=== PATIENT | female | born 1960 | race Hispanic/Latino ===

== ENCOUNTER 2022-02-08 14:05 | Inpatient (IN) ==
[2022-02-08] MEDS ORDERED: KETOROLAC 30 MG/ML VIAL IV ONE (14:54)
[2022-02-08] MEDS ORDERED: morphine 4 MG/ML VIAL IV ONE (14:54)
[2022-02-08] MEDS ORDERED: ONDANSETRON 4 MG/2 ML VIAL IV ONE (14:54)
[2022-02-08 15:55] LABS: Hematocrit 34.1 % (34.1-44.9); Hemoglobin 11.3 g/dL (11.2-15.7); Mean Cell Volume 85.7 fL (80.0-100.0); Mean Corpuscular HGB Conc 33.1 g/dL (31.0-36.0); Mean Platelet Volume 9.4 fL (7.4-10.4); Platelet Count 343 K/mcL (140-440); RBC 3.98 M/mcL (3.59-5.38); Red Cell Distribution Width 14.8 % (11.5-14.5); WBC 7.4 K/mcL (4.5-11.0)
[2022-02-08 16:18] LABS: ALT/SGPT 17 U/L (<40); AST/SGOT 21 U/L (<32); Albumin/Globulin Ratio 1.1 (1.0-2.3); Alkaline Phosphatase 88 U/L (39-117); Bilirubin,Total 0.3 mg/dL (0.1-1.0); Blood Urea Nitrogen 11 mg/dL (8-23); Calcium 8.9 mg/dL (8.6-10.4); Carbon Dioxide 22 mmol/L (22-30); Chloride 101 mmol/L (96-108); Globulin 3.5 gm/dL (2.2-3.7); Glomerular Filtration Rate 53; Glucose 122 mg/dL (70-105)
[2022-02-08 16:26] LABS: Band Neutrophils % 1 % (0-10); Lymphocytes % 4 % (15-49); Monocytes % (Manual) 7 % (1-12); Platelet Estimate NORMAL (Normal); RBC Morphology NORMAL (Normal); Segmented Neutrophils % 88 % (38-78)
--- NOTE | 2022-02-08 16:48 | Cat Scan Report ---
History: Abdominal pain, nausea and vomiting TECHNIQUE: Following injection of intravenous nonionic contrast the patient was scanned during the portal venous phase from above the diaphragm through the symphysis pubis. Sagittal and coronal reformats were created. The radiation exposure was limited using dose reduction technology. FINDINGS: Subtle, ill-defined alveolar opacities are present in both lung bases including the inferior segment of lingula. This could be atelectasis or low level inflammation. No pleural effusion is present. The liver is normal in size. There is a well-circumscribed 1.7 x 2.2 cm cyst in the caudate lobe. High in segment two of the left lobe there is another 4 x 5 mm cyst. No solid mass is seen in the liver. The gallbladder is normal with no stones or thickening of the wall. The bile ducts are nondilated. The spleen is relatively small and homogeneous. The pancreas is normal with no mass or inflammation. The adrenals and kidneys are normal. There is no kidney stone or hydronephrosis. There is an incidental exophytic 6 mm cyst located laterally in the middle third of the right kidney. Urinary bladder is empty. Uterus is anteverted and normal in size. Ovaries are atrophic and no adnexal lesion is seen. The aorta is normal in caliber and there is minimal atherosclerosis. The celiac, superior mesenteric and inferior mesenteric arteries are normal. Stomach is decompressed. The duodenum and proximal jejunum are normal. The distal jejunum and proximal ileum are abnormally dilated and contain a moderate amount of fluid along with air-fluid levels. They measure up to 3.4 centimeters in transverse dimension. No transition point is seen. The wall is not abnormally thickened. The distal half of the ileum is decompressed. The colon is decompressed and noninflamed. The appendix is normal. There are a few noninflamed diverticula in the descending and sigmoid colon. Trace amount of ascites is present deep in the pelvis. There is no abscess or mass. Moderate disc space narrowing is present at L2-3 and L4-5 and L5-S1 with milder narrowing at L3-4. There is no fracture or destructive bone lesion. There is no hernia or abdominal wall lesion. IMPRESSION: Incomplete small bowel obstruction involving distal jejunum and proximal ileum. The source of the obstruction is not apparent. Radha Zamorano was called with the report Interpreted and Authenticated by: Edmund Bowman 02/08/22
[2022-02-08 17:05] LABS: Appearance,Urine HAZY (Clear); Bilirubin,Urine Negative (Negative); Color,Urine YELLOW; Culture Indicated,Urine No; Glucose,Urine (UA) Negative (Negative); Ketones,Urine 5 mg/dL (Negative); Leukocyte Esterase,Urine Negative /uL (Negative); Nitrate,Urine Negative (Negative); Protein,Urine Negative (Negative); Specific Gravity,Urine 1.015 (1.000-1.035); Urine Blood Negative (Negative); Urobilinogen,Urine Negative
--- NOTE | 2022-02-08 17:12 | Emergency Department Note ---
Abdominal Pain HPI General Chief Complaint: Abdominal Pain Stated Complaint: abdominal pain Time Seen by Provider: 02/08/22 14:20 Source: patient Mode of arrival: ambulatory Limitations: no limitations History of Present Illness HPI Narrative: 61-year-old female presents for new onset abdominal pain with nausea and vomiting x5 days. She states that its been intermittent, gradually worsening and was so bad this morning that she had associated nausea and vomiting. Denies hematemesis. Had a normal bowel movement yesterday. Denies melena or hematochezia. Had flatulence this morning. Pain is localized to the umbilical area. Denies fever/chills/sweats. Denies hematuria or dysuria. She does drink alcohol, approximately 2 shots per day. No history of pancreatitis. Previous abdominal surgeries include a section. Last colonoscopy was in 2018 and showed diverticulosis and hemorrhoids, otherwise normal. Related Data Previous Rx's Medication Instructions Recorded meloxicam 7.5 mg tablet (Mobic) 7.5 mg PO BID #60 tab 08/24/20 potassium chloride 20 mEq See Rx Instructions .ROUTE 10/14/21 tablet,extended release .COMPLEX #180 tab losartan 50 mg tablet See Rx Instructions .ROUTE 10/15/21 .COMPLEX #90 tab levothyroxine 50 mcg tablet See Rx Instructions .ROUTE 12/27/21 .COMPLEX #90 tab mometasone 0.1 % topical cream 1 applic TOPICAL .COMPLEX PRN #45 g 01/17/22 prednisone 20 mg tablet 20 mg PO BID 5 Days #10 tab 01/17/22 Allergies Allergy/AdvReac Type Severity Reaction Status Date / Time No Known Drug Allergies Allergy Verified 02/05/22 07:28 Review of Systems ROS ROS Narrative: Narrative: All systems ED: reviewed and negative except as stated. 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) Joint pain (Chronic) Hair loss (Chronic) Carpal tunnel syndrome (Chronic) Diverticulosis of colon (without mention of hemorrhage) (Chronic) Hemorrhoids (Chronic) Dermatitis (Chronic) Onychomycosis of toenail (Chronic) Medical History RACHANA positive Anemia Carpal tunnel syndrome Dermatitis Diverticulosis of colon (without mention of hemorrhage) Hair loss Hemorrhoids Hypertrophy of bone of left shoulder Hypopotassemia Joint pain Onychomycosis of toenail Shoulder pain, right Varicose veins of both lower extremities Surgical History History of (~1985) History of colonoscopy (~2017) Family History Other No pertinent family history Social History Smoking Status: Never smoker Exam Narrative Narrative: General: AOx3, NAD, nontoxic appearing. Pleasant and conversant. HEENT: PERRL, EOMI, normocephalic. Moist mucous membranes. Respiratory: Lungs clear to auscultation bilaterally. No respiratory distress. Unlabored breathing. Heart: Regular rate and rhythm, no murmurs/clicks/rubs. Abdomen: Globally tender, more localized to the umbilical area. Mild distention, normal bowel tones. No organomegaly. Extremities: Warm and well perfused. No edema. DP 2+ bilaterally. No venous stasis. Neuro: No focal deficits. Cranial nerves II-XII grossly normal. Skin: Warm dry, no rashes or lesions, no cyanosis. Psych: Normal mood and affect Heme/Lymph: No abnormal bruising General Limitations: no limitations Course Course Course Narrative: 61-year-old female presents for 1 week of intermittent abdominal pain with new o nset nausea and vomiting today Reevaluation(s) Reevaluation #1: Obtain basic labs, CT of the abdomen pelvis with contrast Establish IV give IV fluids, antiemetics and analgesics Reevaluation #2: CT shows partial small bowel obstruction distal jejunum proximal ileum Vital Signs Vital signs: Vital Signs Temperature 97.9 F 02/08/22 14:06 Pulse Rate 94 H 02/08/22 14:06 Respiratory Rate 16 02/08/22 14:06 Blood Pressure 181/111 02/08/22 14:06 Pulse Oximetry (%) 96 02/08/22 14:06 Temperature 97.9 F 02/08/22 14:06 Pulse Rate 69 02/08/22 19:31 Respiratory Rate 16 02/08/22 14:06 Blood Pressure 155/85 02/08/22 19:31 Pulse Oximetry (%) 96 02/08/22 19:31 MDM MDM Narrative Medical decision making narrative: Partial small bowel obstruction I discussed patient with Dr. Coats, general surgery, and he recommends placing an NG tube and IV fluids. I have also ordered a lactic acid. He agrees with admission and monitoring. She has been disposition for admission here at [facility]. Lab Data Result diagrams: 02/08/22 15:07 02/08/22 15:07 Labs: Lab Results 02/08/22 02/08/22 02/08/22 Range/Units 15:07 15:07 15:16 WBC 7.4 (4.5-11.0) K/mcL RBC 3.98 (3.59-5.38) M/mcL Hgb 11.3 (11.2-15.7) g/dL Hct 34.1 (34.1-44.9) % MCV 85.7 (80.0-100.0) fL MCH 28.4 (26.0-34.0) pg MCHC 33.1 (31.0-36.0) g/dL RDW 14.8 H (11.5-14.5) % Plt Count 343 (140-440) K/mcL MPV 9.4 (7.4-10.4) fL Seg Neutrophils % 88 H (38-78) % Band Neutrophils % 1 (0-10) % Lymphocytes % 4 L (15-49) % Monocytes % (Manual) 7 (1-12) % Platelet Estimate Normal (Normal) RBC Morphology Normal (Normal) Sodium 138 (133-145) mmol/L Potassium 3.8 (3.3-5.1) mmol/L Chloride 101 (96-108) mmol/L Carbon Dioxide 22 (22-30) mmol/L Anion Gap 15.0 (8.0-16.0) BUN 11 (8-23) mg/dL Creatinine 1.1 (0.6-1.1) mg/dL POC Creatinine GFR Calculation 53 Glucose 122 H (70-105) mg/dL Calcium 8.9 (8.6-10.4) mg/dL Total Bilirubin 0.3 (0.1-1.0) mg/dL AST 21 (<32) U/L ALT 17 (<40) U/L Alkaline Phosphatase 88 (39-117) U/L Total Protein 7.5 (5.9-8.4) gm/dL Albumin 4.0 (3.2-5.2) gm/dL Globulin 3.5 (2.2-3.7) gm/dL Albumin/Globulin Ratio 1.1 (1.0-2.3) Lipase 30 (7-60) U/L Urine Color Urine Appearance (Clear) Urine pH (5.0-9.0) Ur Specific [place] (1.000-1.035) Urine Protein (Negative) mg/dL Urine Glucose (UA) (Negative) mg/dL Urine Ketones (Negative) mg/dL Urine Occult Blood (Negative) mg/dL Urine Nitrate (Negative) Urine Bilirubin (Negative) mg/dL Urine Urobilinogen mg/dL Ur Leukocyte Esterase (Negative) /uL Ur Culture Indicated? 02/08/22 02/08/22 02/08/22 Range/Units 15:16 15:17 16:15 WBC (4.5-11.0) K/mcL RBC (3.59-5.38) M/mcL Hgb (11.2-15.7) g/dL Hct (34.1-44.9) % MCV (80.0-100.0) fL MCH (26.0-34.0) pg MCHC (31.0-36.0) g/dL RDW (11.5-14.5) % Plt Count (140-440) K/mcL MPV (7.4-10.4) fL Seg Neutrophils % (38-78) % Band Neutrophils % (0-10) % Lymphocytes % (15-49) % Monocytes % (Manual) (1-12) % Platelet Estimate (Normal) RBC Morphology (Normal) Sodium (133-145) mmol/L Potassium (3.3-5.1) mmol/L Chloride (96-108) mmol/L Carbon Dioxide (22-30) mmol/L Anion Gap (8.0-16.0) BUN (8-23) mg/dL Creatinine (0.6-1.1) mg/dL POC Creatinine 1.1 0.7 GFR Calculation Glucose (70-105) mg/dL Calcium (8.6-10.4) mg/dL Total Bilirubin (0.1-1.0) mg/dL AST (<32) U/L ALT (<40) U/L Alkaline Phosphatase (39-117) U/L Total Protein (5.9-8.4) gm/dL Albumin (3.2-5.2) gm/dL Globulin (2.2-3.7) gm/dL Albumin/Globulin Ratio (1.0-2.3) Lipase (7-60) U/L Urine Color Yellow Urine Appearance Hazy A (Clear) Urine pH 6.0 (5.0-9.0) Ur Specific [place] 1.015 (1.000-1.035) Urine Protein Negative (Negative) mg/dL Urine Glucose (UA) Negative (Negative) mg/dL Urine Ketones 5 A (Negative) mg/dL Urine Occult Blood Negative (Negative) mg/dL Urine Nitrate Negative (Negative) Urine Bilirubin Negative (Negative) mg/dL Urine Urobilinogen Negative mg/dL Ur Leukocyte Esterase Negative (Negative) /uL Ur Culture Indicated? No ED POC Tests ED POC Tests: SHYLA - SARS Antigen Negative Discharge Plan Patient/Caregiver Discharge Instructions Pt seen by CLINICAL SERVICES CONSULTANT/PA only: Yes Clinical Impression: SBO (small bowel obstruction) Patient Disposition: Xfer As Inpt ([facility]) Condition: Fair Follow up with: Oskar Beatty ARNP [Primary Care Provider] - Prescriptions: No Action meloxicam [Mobic] 7.5 mg tablet 7.5 mg PO BID Qty: 60 3RF potassium chloride 20 mEq tablet extended release See Rx Instructions .ROUTE .COMPLEX Qty: 180 1RF Dose Instruction: TAKE ONE TABLET BY MOUTH TWICE DAILY Rx Instructions: TAKE ONE TABLET BY MOUTH TWICE DAILY losartan 50 mg tablet See Rx Instructions .ROUTE .COMPLEX Qty: 90 1RF Dose Instruction: TAKE ONE TABLET BY MOUTH ONE TIME DAILY Rx Instructions: TAKE ONE TABLET BY MOUTH ONE TIME DAILY levothyroxine 50 mcg tablet See Rx Instructions .ROUTE .COMPLEX Qty: 90 0RF Dose Instruction: TAKE ONE TABLET BY MOUTH ONE TIME DAILY Rx Instructions: TAKE ONE TABLET BY MOUTH ONE TIME DAILY mometasone 0.1 % cream 1 applic topical .COMPLEX PRN (Reason: rash) Qty: 45 1RF Rx Instructions: 1 applic topical qd x 1-2 weeks PRN; prednisone 20 mg tablet 20 mg PO BID 5 Days Qty: 10 1RF
[2022-02-08] MEDS ORDERED: LORazepam 2 MG/ML VIAL IV ONE (17:30)
[2022-02-08] MEDS ORDERED: 0.9 % SODIUM CHLORIDE 1,000 ML IV ONE (17:31)
--- NOTE | 2022-02-08 18:26 | General Surgery Consult Note ---
HPI Data of Consult Patient: new to practice Consult date: 02/08/22 Primary Care Provider: GILDA Irwin Consult Narrative Chief complaint: Abdominal Pain and Vomiting Reason for consult: Small Bowel Obstruction History of present illness: Mary Ellen is seen in consultation in the ER today after presenting with a roughly 1 week history of intermittent mid abdominal pain that seemed to worsen abruptly last night with worsening pain and bouts of vomiting. She feels better now and has had some bowel function today. Prior abdominal surgery has been 2 C Sections many years ago and no other abdominal operations. She has been in generally good health and denies cardiac issues. She is not on any oral anticoagulants. A CT scan was obtained in the ER that demonstrated findings consistent with possible SBO. cc:: CC: Review of Systems All systems: reviewed and no additional remarkable complaints except as stated Constitutional Additional comments: no recent weight loss, fevers or chills EENT Eyes: Absent blurry vision Additional comments: no visual changes Ears: Absent decreased hearing Additional comments: no changes Breasts Additional comments: denies cancer history Cardiovascular Additional comments: no chest pain or SOB Respiratory Additional comments: no SOB, cough or other issue Gastrointestinal Additional comments: see HPI Genitourinary Additional comments: no hematuria Integumentary Additional comments: no recent skin changes Neurological Additional comments: no changes Psychiatric Additional comments: no changes or issues Hematologic/Lymphatic Additional comments: no known adenopathy PFSH PFSH All Active Problems (Updated 02/08/22 @ 18:35 by Nick Coats MD) SBO (small bowel obstruction) (Acute) Anemia (Acute) Scalp cyst (Acute) RUQ pain (Acute) Lesion of skin of scalp (Acute) GERD (gastroesophageal reflux disease) (Chronic) Hypothyroidism (Chronic) Diabetes mellitus type 2 in nonobese (Chronic) Shoulder pain, right (Chronic) Varicose veins of both lower extremities (Chronic) Hypopotassemia (Chronic) RACHANA positive (Chronic) 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) Joint pain (Chronic) Hair loss (Chronic) Carpal tunnel syndrome (Chronic) Diverticulosis of colon (without mention of hemorrhage) (Chronic) Hemorrhoids (Chronic) Dermatitis (Chronic) Onychomycosis of toenail (Chronic) Medical History RACHANA positive Anemia Carpal tunnel syndrome Dermatitis Diverticulosis of colon (without mention of hemorrhage) Hair loss Hemorrhoids Hypertrophy of bone of left shoulder Hypopotassemia Joint pain Onychomycosis of toenail Shoulder pain, right Varicose veins of both lower extremities Surgical History History of (~1985) History of colonoscopy (~2017) Family History Other No pertinent family history MEDS/ALLERGIES Home Medications and Allergies Home Medications Medication Instructions Recorded Confirmed Type meloxicam 7.5 mg tablet (Mobic) 7.5 mg PO BID #60 tab 08/24/20 01/17/22 Rx potassium chloride 20 mEq See Rx Instructions .ROUTE 10/14/21 01/17/22 Rx tablet,extended release .COMPLEX #180 tab losartan 50 mg tablet See Rx Instructions .ROUTE 10/15/21 01/17/22 Rx .COMPLEX #90 tab levothyroxine 50 mcg tablet See Rx Instructions .ROUTE 12/27/21 01/17/22 Rx .COMPLEX #90 tab mometasone 0.1 % topical cream 1 applic TOPICAL .COMPLEX PRN #45 g 01/17/22 01/17/22 Rx prednisone 20 mg tablet 20 mg PO BID 5 Days #10 tab 01/17/22 01/17/22 Rx Allergies Allergy/AdvReac Type Severity Reaction Status Date / Time No Known Drug Allergies Allergy Verified 02/05/22 07:28 Physical Examination Vital Signs Vital signs: Temp Pulse Resp BP Pulse Ox 97.9 F 73 16 154/87 96 02/08/22 14:06 02/08/22 18:01 02/08/22 14:06 02/08/22 18:01 02/08/22 18:01 General physical appearance General physical exam: well developed, well nourished and no distress Eyes Eye exam: other (normal appearance ) ENT ENT exam: normal pinna and normal nares Head Head exam IM: Present atraumatic and normocephalic Neck Neck exam: trachea midline and no lymphadenopathy; negative deviated trachea Cardiovascular Cardiovascular exam IM: Present normal rate and rhythm and RRR Respiratory Respiratory exam: other (normal respiratory effort without distress ) Abdomen Abdomen: Present soft, non tender and distended (mild distension ); Absent guarding Integumentary Integumentary: Present other (normal appearing intact skin ) Neurologic Neurologic: Present other (fully alert, grossly intact ) Psychiatric Psychiatric: Present other (normal affect ) Results Labs Result diagrams: 02/08/22 15:07 02/08/22 15:07 Labs: Abnormal lab results 02/08/22 02/08/22 02/08/22 Range/Units 15:07 15:07 16:15 RDW 14.8 H (11.5-14.5) % Seg Neutrophils % 88 H (38-78) % Lymphocytes % 4 L (15-49) % Glucose 122 H (70-105) mg/dL Urine Appearance Hazy A (Clear) Urine Ketones 5 A (Negative) mg/dL Diabetes panel 02/08/22 Range/Units 15:07 Sodium 138 (133-145) mmol/L Potassium 3.8 (3.3-5.1) mmol/L Chloride 101 (96-108) mmol/L Carbon Dioxide 22 (22-30) mmol/L BUN 11 (8-23) mg/dL Creatinine 1.1 (0.6-1.1) mg/dL Glucose 122 H (70-105) mg/dL Calcium 8.9 (8.6-10.4) mg/dL AST 21 (<32) U/L ALT 17 (<40) U/L Alkaline Phosphatase 88 (39-117) U/L Total Protein 7.5 (5.9-8.4) gm/dL Albumin 4.0 (3.2-5.2) gm/dL Calcium panel 02/08/22 Range/Units 15:07 Calcium 8.9 (8.6-10.4) mg/dL Albumin 4.0 (3.2-5.2) gm/dL Pituitary panel 02/08/22 Range/Units 15:07 Sodium 138 (133-145) mmol/L Potassium 3.8 (3.3-5.1) mmol/L Chloride 101 (96-108) mmol/L Carbon Dioxide 22 (22-30) mmol/L BUN 11 (8-23) mg/dL Creatinine 1.1 (0.6-1.1) mg/dL Glucose 122 H (70-105) mg/dL Calcium 8.9 (8.6-10.4) mg/dL Adrenal panel 02/08/22 Range/Units 15:07 Sodium 138 (133-145) mmol/L Potassium 3.8 (3.3-5.1) mmol/L Chloride 101 (96-108) mmol/L Carbon Dioxide 22 (22-30) mmol/L BUN 11 (8-23) mg/dL Creatinine 1.1 (0.6-1.1) mg/dL Glucose 122 H (70-105) mg/dL Calcium 8.9 (8.6-10.4) mg/dL Total Bilirubin 0.3 (0.1-1.0) mg/dL AST 21 (<32) U/L ALT 17 (<40) U/L Alkaline Phosphatase 88 (39-117) U/L Total Protein 7.5 (5.9-8.4) gm/dL Albumin 4.0 (3.2-5.2) gm/dL All other labs normal. A/P Assessment and plan (1) SBO (small bowel obstruction): Assessment and plan: Small Bowel Obstruction Presumptively adhesion related without evidence of mass or hernia. Its possible this is some form of acute enteritis as well and we will plan for a SBFT in the next 24-48 hours if this is not clearly resolving Exam is relatively benign and I don't seen any indications for Urgent Operative intervention at this time. I do recommend admission though for a period of observation. NGT placement, IVFs, pain control and re check labs in the AM. Will add ABs if any evidence of fever, increasing WBC or infection. Issues discussed at length with patient and family and they know there is some chance that she could end up needing operative intervention for this on this admission but that often that isn't the case Status: Acute Time Spent With Patient Time: Total time spent is greater than 50% in coordination of care (as documented) at patient's floor/unit and/or counseling patient:
[2022-02-08] MEDS ORDERED: ONDANSETRON 4 MG/2 ML VIAL IV PRN (18:40)
[2022-02-08] MEDS ORDERED: NALOXONE HCL 0.4 MG/ML VIAL IV PRN (18:45)
[2022-02-08] MEDS: LACTATED RINGERS 1,000 ML IV SCH (20:20)
[2022-02-08] MEDS ORDERED: DOCUSATE SODIUM 100 MG CAPSULE PO SCH (21:00)
[2022-02-08] MEDS: SENNOSIDES 1 TABLET PO SCH (21:02)
[2022-02-08] MEDS: 0.9 % SODIUM CHLORIDE 10 ML SYRINGE IV SCH (21:55)
[2022-02-09] MEDS: LACTATED RINGERS 1,000 ML IV SCH (04:21)
[2022-02-09] MEDS: 0.9 % SODIUM CHLORIDE 10 ML SYRINGE IV SCH ×3 (05:13→20:25)
[2022-02-09 07:52] LABS: Hematocrit 28.6 % (34.1-44.9); Hemoglobin 9.5 g/dL (11.2-15.7); Mean Cell Volume 86.4 fL (80.0-100.0); Mean Corpuscular HGB Conc 33.2 g/dL (31.0-36.0); Mean Platelet Volume 9.7 fL (7.4-10.4); Platelet Count 283 K/mcL (140-440); RBC 3.31 M/mcL (3.59-5.38); WBC 4.2 K/mcL (4.5-11.0)
[2022-02-09 08:22] LABS: Blood Urea Nitrogen 12 mg/dL (8-23); Calcium 8.1 mg/dL (8.6-10.4); Carbon Dioxide 24 mmol/L (22-30); Chloride 106 mmol/L (96-108); Glomerular Filtration Rate 53; Glucose 101 mg/dL (70-105)
[2022-02-09] MEDS ORDERED: DEXTROSE 5%-LR 1,000 ML IV SCH (09:45)
[2022-02-09] MEDS: HYDROmorphone 0.5 MG/0.5 ML SYRINGE IV PRN ×2 (10:02→20:35)
--- NOTE | 2022-02-09 10:39 | XRay Report ---
HISTORY: Nasogastric tube insertion FINDINGS: AP portable supine image was obtained. There is nasogastric tube pointing inferiorly with the tip at the level of the gastroesophageal junction. The sidehole remains in the distal esophagus. There are couple loops of mildly dilated small bowel in the midabdomen. These have diminished in caliber since the prior CT performed on 02/08/22. IMPRESSION: Nasogastric tube in the distal thoracic esophagus. This could be advanced approximately 10 cm. IMPRESSION: Interpreted and Authenticated by: Edmund Bowman 02/09/22
--- NOTE | 2022-02-09 12:39 | General Surgery Progress Note ---
SUBJECTIVE Subjective Patient information: Note initiated : 02/09/22 at 12:33 pm Service Date, if different from initiated Date: [] Patient: Mary Ellen Jimenez 61 y/o F admitted on 02/08/22 for abdominal pain. Chief Complaint: [HD#2 SBO] Continues to feel her pain has fully resolved. Passing some gas per history. NGT was advanced this AM to more functional position. Constitutional Vitals: Vital Signs Temp Pulse Resp BP Pulse Ox 98.3 F 63 14 154/79 96 02/09/22 12:00 02/09/22 12:00 02/09/22 07:34 02/09/22 12:00 02/09/22 12:00 Period Temp Pulse Resp BP Sys/Plummer Pulse Ox Last 24 Hr 97.8 F-99.6 F 63-94 14-18 145-193/79-111 95-99 Intake and Output 02/08/22 02/09/22 02/09/22 21:59 05:59 13:59 Intake Total 1000 1000 717 Output Total 0 Balance 1000 1000 717 Weight 125 lb Intake & Output: Intake & Output 02/08/22 02/09/22 02/09/22 21:59 05:59 13:59 Intake Total 1000 1000 717 Output Total 0 Balance 1000 1000 717 Weight 125 lb Intake: IV 1000 1000 717 Sodium Chloride 0.9% 1,000 ml @ 1000 Wide Open IV BOLUS ONE Rx#: [id number] Lactated Ringers 1,000 ml @ 125 1000 717 mls/hr IV .Q8H REDD Rx#: [id number] Oral 0 Output: Gastric Drainage 0 Right Nare 0 Other: Urine Appearance Clear Urine Color Straw # [place] 3 General appearance: cooperative and no acute distress Respiratory Respiratory exam: Present normal respiratory exam Additional comments: normal effort without distress Cardiovascular Cardiovascular exam: Present normal rate and rhythm and RRR GI/Abdominal Additional comments: belly remains mildly distended but non tender, NGT appears functional Extremities Exam Additional comments: well perfused A/P Assessment and plan (1) SBO (small bowel obstruction): Assessment and plan: Presumed Adhesion Related SBO Appears to be resolving Re check plain films in the AM OOB and ambulate today Status: Acute Time Spent With Patient Time: Total time spent is greater than 50% in coordination of care (as documented) at patient's floor/unit and/or counseling patient:
[2022-02-09] MEDS: DEXTROSE 5%-LR 1,000 ML IV SCH (17:07)
[2022-02-09] MEDS: SENNOSIDES 1 TABLET PO SCH (20:25)
[2022-02-10] MEDS: DEXTROSE 5%-LR 1,000 ML IV SCH ×3 (03:22→23:24)
[2022-02-10] MEDS: 0.9 % SODIUM CHLORIDE 10 ML SYRINGE IV SCH ×3 (05:08→22:02)
--- NOTE | 2022-02-10 09:04 | XRay Report ---
CLINICAL INFORMATION: eval SBO COMPARISON: 02/09/2022 FINDINGS: NG tip is in the gastric fundus. A single segment of mildly small bowel is seen in the epigastric region with a few air-fluid levels. The remaining stool gas pattern is normal. No free air, soft tissue mass or pathologic calcification. IMPRESSION: Near-complete resolution and partial small bowel obstruction pattern. Interpreted and Authenticated by: Jaleel Ruelas 02/10/22
--- NOTE | 2022-02-10 14:48 | General Surgery Progress Note ---
SUBJECTIVE Subjective Patient information: Note initiated : 02/10/22 at 2:43 pm Service Date, if different from initiated Date: [] Patient: Mary Ellen Jimenez 61 y/o F admitted on 02/08/22 for abdominal pain. Chief Complaint: [HD #3 SBO] Low grade temp today. Passing normal amounts of gas and seems to indicate that her abdominal symptoms have fully resolved but difficult to fully elucidate that from her. Constitutional Vitals: Vital Signs Temp Pulse Resp BP Pulse Ox 99.4 F H 63 16 161/87 94 02/10/22 11:12 02/10/22 11:12 02/10/22 11:12 02/10/22 11:12 02/10/22 11:12 Period Temp Pulse Resp BP Sys/Plummer Pulse Ox Last 24 Hr 98.7 F-100.2 F 63-73 14-16 155-179/82-88 94-96 Intake and Output 02/10/22 02/10/22 02/10/22 05:59 13:59 21:59 Intake Total 1375 1000 Output Total 50 500 Balance 1325 500 Weight 124 lb 6.4 oz Patient Weight 02/11/22 05:59 Weight 124 lb 6.4 oz Intake & Output: Intake & Output 02/10/22 02/10/22 02/10/22 05:59 13:59 21:59 Intake Total 1375 1000 Output Total 50 500 Balance 1325 500 Weight 124 lb 6.4 oz Intake: IV 1375 1000 Dextrose 5%-Lactated Ringers 1, 1092 1000 000 ml @ 100 mls/hr IV .Q10H REDD Rx#:[id number] Lactated Ringers 1,000 ml @ 125 283 mls/hr IV .Q8H REDD Rx#: [id number] Oral 0 Output: Gastric Drainage 50 Right Nare 50 Void Amount 500 Other: # Voids 4 General appearance: cooperative and no acute distress Respiratory Respiratory exam: Present normal respiratory exam Additional comments: normal respiratory effort without distress Cardiovascular Cardiovascular exam: Present normal rate and rhythm and RRR GI/Abdominal Additional comments: belly soft and non tender, remains ? minimally distended NGT in place Extremities Exam Additional comments: well perfused A/P Assessment and plan (1) SBO (small bowel obstruction): Assessment and plan: Resolving SBO Plain films continue to look improved Clamp NGT and start clears Re check Abd X rays tomorrow - if not fully resolved then will consider SBFT ? etiology of temps - possible atelectasis, if continue will check CXR as well Re check labs tomorrow with possible discharge if doing well Status: Acute Time Spent With Patient Time: Total time spent is greater than 50% in coordination of care (as documented) at patient's floor/unit and/or counseling patient:
[2022-02-10] MEDS ORDERED: LOSARTAN 50 MG TABLET PO SCH (21:00)
[2022-02-10] MEDS: SENNOSIDES 1 TABLET PO SCH (22:01)
[2022-02-11] MEDS ORDERED: FUROSEMIDE 20 MG/2 ML VIAL IV ONE ×2 (05:48→05:58)
[2022-02-11] MEDS: 0.9 % SODIUM CHLORIDE 10 ML SYRINGE IV SCH (05:56)
[2022-02-11 06:49] LABS: Basophils # (Auto) 0.02 K/mcL (0.00-0.30); Basophils % (Auto) 0.4 % (0.0-2.0); Eosinophils # (Auto) 0.22 K/mcL (0.00-0.70); Eosinophils % (Auto) 4.8 % (0.0-7.0); Hematocrit 29.6 % (34.1-44.9); Hemoglobin 9.7 g/dL (11.2-15.7); Lymphocytes # (Auto) 0.81 K/mcL (1.50-4.80); Lymphocytes % (Auto) 17.8 % (15.5-49.0); Mean Cell Volume 85.8 fL (80.0-100.0); Mean Corpuscular HGB Conc 32.8 g/dL (31.0-36.0); Mean Platelet Volume 9.9 fL (7.4-10.4); Monocytes # (Auto) 0.63 K/mcL (0.10-0.90); Monocytes % (Auto) 13.9 % (1.0-12.0); Neutrophils % (Auto) 63.1 % (38.0-78.0); Platelet Count 312 K/mcL (140-440); RBC 3.45 M/mcL (3.59-5.38); Red Cell Distribution Width 14.6 % (11.5-14.5); WBC 4.5 K/mcL (4.5-11.0)
[2022-02-11 07:22] LABS: Blood Urea Nitrogen 5 mg/dL (8-23); Calcium 8.5 mg/dL (8.6-10.4); Carbon Dioxide 27 mmol/L (22-30); Chloride 104 mmol/L (96-108); Glomerular Filtration Rate 68; Glucose 116 mg/dL (70-105)
[2022-02-11] MEDS ORDERED: LEVOTHYROXINE 50 MCG TABLET PO SCH (07:30)
--- NOTE | 2022-02-11 08:53 | General Surgery Progress Note ---
SUBJECTIVE Subjective Patient information: Note initiated : 02/11/22 at 8:49 am Service Date, if different from initiated Date: [] Patient: Mary Ellen Jimenez 61 y/o F admitted on 02/08/22 for abdominal pain. Chief Complaint: [HD #4 SBO] Tolerating clears well without issue and has now had a normal stool along with high volume gas Constitutional Vitals: Vital Signs Temp Pulse Resp BP Pulse Ox 98.4 F 65 16 165/95 96 02/11/22 07:28 02/11/22 07:28 02/11/22 07:28 02/11/22 07:28 02/11/22 07:28 Period Temp Pulse Resp BP Sys/Plummer Pulse Ox Last 24 Hr 98.4 F-99.8 F 63-72 16-16 161-182/83-96 94-96 Intake and Output 02/10/22 02/11/22 02/11/22 21:59 05:59 13:59 Intake Total 1000 Output Total 550 Balance 1000 -550 Weight 133 lb 1 oz Intake & Output: Intake & Output 02/10/22 02/11/22 02/11/22 21:59 05:59 13:59 Intake Total 1000 Output Total 550 Balance 1000 -550 Weight 133 lb 1 oz Intake: IV 1000 Dextrose 5%-Lactated Ringers 1, 1000 000 ml @ 100 mls/hr IV .Q10H [facility] Rx#:[id number] Output: Void Amount 550 Other: Urine Appearance Clear Urine Color Bright Yellow Urine Odor Normal # Voids 1 Exam: looks well, NAD Respiratory Additional comments: normal respiratory effort without distress Cardiovascular Cardiovascular exam: Present normal rate and rhythm GI/Abdominal Additional comments: soft and non tender, non distended, no mass NGT removed without issue Extremities Exam Additional comments: well perfused A/P Assessment and plan (1) SBO (small bowel obstruction): Assessment and plan: Clinically Resolved SBO Regular Diet D/C NGT Home later today Status: Acute Time Spent With Patient Time: Total time spent is greater than 50% in coordination of care (as documented) at patient's floor/unit and/or counseling patient:
--- NOTE | 2022-02-14 16:32 | Discharge Summary ---
DATE OF ADMISSION: 02/08/2022 DATE OF DISCHARGE: 02/11/2022 ADMITTING DIAGNOSIS: Small bowel obstruction. DISCHARGE DIAGNOSIS: Small bowel obstruction. ADMITTING PHYSICIAN: Nick Coats M.D. PROCEDURES PERFORMED: None. INDICATIONS FOR ADMISSION AND HOSPITAL COURSE: The patient is a 61-year-old female who presented to the emergency room at [facility] on 02/08/2022 with intermittent and then severe worsening abdominal pain over the course of about a week. She was seen and imaging was obtained which demonstrated a bowel obstruction. We were asked to see her in consultation for prospective admission. Of note, she had had a prior and no other abdominal surgery. She had not had prior bowel obstructions. She was seen in consultation. We felt she likely had a mild adhesion-related SBO and recommended admission with NG tube decompression, bowel rest, IV fluids, and observational management. She was agreeable to this. She was admitted on 02/08/2022. We kept her for the next several days. She began to pass gas and have stools. The NG tube was then clamped and she was started on clear liquids which she tolerated well, followed by removal, and by 02/11/2022 she was tolerating a regular diet, passing gas, moving her bowels with her NG tube and doing well, and she was discharged. DISPOSITION: Follow up in clinic in 2 to 4 weeks or sooner if need be. HOSPITAL COMPLICATIONS: None. BW:grazyna Job ID: [id number] Doc ID: [id number] Nick Coats M.D.
== END 2022-02-11 11:35 | disposition home or self-care (01) | DRG 390 ==
LOC: ED 14:05 → MEDSUR 20:04
PROVIDERS: ADMIT Surgery Surgical Critical Care; ATTEND Surgery Surgical Critical Care

== ENCOUNTER 2022-02-15 12:44 | Inpatient (IN) ==
[2022-02-15] MEDS ORDERED: IOPAMIDOL 100 ML BOTTLE IV ONE (12:45)
--- NOTE | 2022-02-15 13:17 | Emergency Department Note ---
Abdominal Pain HPI General Chief Complaint: Abdominal Pain Stated Complaint: Abdominal Pain Time Seen by Provider: 02/15/22 12:48 Source: patient Mode of arrival: ambulatory Limitations: no limitations History of Present Illness HPI Narrative: Narrative: 61-year-old female presents the ER to be evaluated for concern of possible bowel obstruction. She was seen here on the and admitted to Dr. Coats and disc harged on the . She said since her discharge for previous small bowel obstruction she had a day of liquid stools and has not had a bowel movement since then. She states she is have limited passing of gas since then as well. She states she is eating a little bit but it significantly painful when she drinks water. She denies fever, chills, body aches, nausea or vomiting. She states this feels like when she had a previous bowel obstruction. She states she did poorly with tolerating the NG tube and is very fearful about having another 1. She also has a history of GERD, hypothyroidism and diabetes. Her only previous abdominal surgery is a section. She did not need surgery to resolve her last small bowel obstruction as it did resolve with conservative therapy via NG tube. She has no other complaints at this time. Related Data Home Medications Medication Instructions Recorded Confirmed clobetasol 0.05 % topical ointment 1 applic TOPICAL BID 02/09/22 02/14/22 losartan 25 mg tablet 2 tab PO HS 02/09/22 02/14/22 tacrolimus 0.1 % topical ointment 1 applic TOPICAL BID 02/09/22 02/14/22 potassium chloride 20 mEq 20 meq PO BID 02/15/22 02/15/22 tablet,extended release Previous Rx's Medication Instructions Recorded levothyroxine 75 mcg tablet 75 mcg PO QDAY #30 tab 02/14/22 Allergies Allergy/AdvReac Type Severity Reaction Status Date / Time No Known Drug Allergies Allergy Verified 02/14/22 10:51 Review of Systems ROS ROS Narrative: Narrative: All systems ED: reviewed and negative except as stated. 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) Joint pain (Chronic) Hair loss (Chronic) Carpal tunnel syndrome (Chronic) Diverticulosis of colon (without mention of hemorrhage) (Chronic) Hemorrhoids (Chronic) Dermatitis (Chronic) Onychomycosis of toenail (Chronic) Medical History RACHANA positive Anemia Carpal tunnel syndrome Dermatitis Diverticulosis of colon (without mention of hemorrhage) Hair loss Hemorrhoids Hypertrophy of bone of left shoulder Hypopotassemia Joint pain Onychomycosis of toenail Shoulder pain, right Varicose veins of both lower extremities Surgical History History of (~1985) History of colonoscopy (~2017) Family History Other No pertinent family history Social History Smoking Status: Never smoker Exam Narrative Narrative: Narrative: Gen: Patient is worried and in obvious discomfort Eyes: PERRL, no conjunctival injection , and symmetrical lids. Sclerae non icteric HENMT: Normocephalic Atraumatic head, external nose and ears. Moist MM. CVS: +S1/S2, No murmurs or gallops. Radial pulses 2+ and equal bilat. No swelling RESP: Unlabored respiratory effort . Clear to auscultation bilaterally (CTAB). No noted wheezes rales or ronchi. GI: Distended and mildly diffusely tender abdomen without focal peritonitis Skin: Warm, Dry . No rashes or lesions . Cap refill less than 2. Neuro: No focal neurological deficit Psych: Awake, Alert, & Oriented (AAO) x3. Appropriate mood and affect . General Limitations: no limitations Course Vital Signs Vital signs: Vital Signs Temperature 100.0 F H 02/15/22 12:45 Pulse Rate 89 02/15/22 12:45 Respiratory Rate 18 02/15/22 12:45 Blood Pressure 145/93 02/15/22 12:45 Pulse Oximetry (%) 96 02/15/22 12:45 Temperature 100.0 F H 02/15/22 12:45 Pulse Rate 89 02/15/22 12:45 Respiratory Rate 18 02/15/22 12:45 Blood Pressure 145/93 02/15/22 12:45 Pulse Oximetry (%) 96 02/15/22 12:45 MDM MDM Narrative Medical decision making narrative: Narrative: Patient will be evaluated with CBC, Chem-8, hepatic panel and lipase CT scan of the abdomen pelvis and with contrast will be obtained. CBC: Unremarkable Chem-8: Unremarkable Hepatic panel: Unremarkable Lipase: Normal CT abdomen pelvis: IMPRESSION: 1. 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 No evidence of free air to suggest perforation or free fluid suggest third spacing. 2. Marked fatty change of the liver with a few hepatic cysts/stable 3. Moderate patchy bibasilar airspace disease in the lung bases showing slight progression. Infection or aspiration is suspected. Consider plain chest x-ray follow-up if there are respiratory symptoms. Interpreted and Authenticated by: Jaleel Ruelas 02/15/22 Dr. Junior general surgeon was consulted who came down evaluated the patient and will admit her to his service. 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
[2022-02-15 13:45] LABS: POC Calcium, Ionized 0.93 (1.16-1.32)
[2022-02-15 13:48] LABS: Basophils # (Auto) 0.04 K/mcL (0.00-0.30); Basophils % (Auto) 0.7 % (0.0-2.0); Eosinophils # (Auto) 0.03 K/mcL (0.00-0.70); Eosinophils % (Auto) 0.5 % (0.0-7.0); Hematocrit 34.6 % (34.1-44.9); Hemoglobin 11.1 g/dL (11.2-15.7); Lymphocytes # (Auto) 0.98 K/mcL (1.50-4.80); Lymphocytes % (Auto) 17.9 % (15.5-49.0); Mean Cell Volume 85.9 fL (80.0-100.0); Mean Corpuscular HGB Conc 32.1 g/dL (31.0-36.0); Mean Platelet Volume 9.5 fL (7.4-10.4); Monocytes # (Auto) 0.63 K/mcL (0.10-0.90); Monocytes % (Auto) 11.5 % (1.0-12.0); Neutrophils % (Auto) 69.4 % (38.0-78.0); Platelet Count 450 K/mcL (140-440); RBC 4.03 M/mcL (3.59-5.38); Red Cell Distribution Width 14.2 % (11.5-14.5); WBC 5.5 K/mcL (4.5-11.0)
[2022-02-15 14:02] LABS: ALT/SGPT 16 U/L (<40); AST/SGOT 22 U/L (<32); Alkaline Phosphatase 88 U/L (39-117); Bilirubin,Direct < 0.2 mg/dL (0-0.3); Bilirubin,Total 0.4 mg/dL (0.1-1.0); Globulin 3.5 gm/dL (2.2-3.7)
[2022-02-15] MEDS: HYDROmorphone 0.5 MG/0.5 ML SYRINGE IV PRN (14:53)
--- NOTE | 2022-02-15 15:39 | Cat Scan Report ---
CLINICAL INFORMATION: , Pain and distention. Evaluate for bowel obstruction COMPARISON: Abdomen and pelvic CT 02/08/2022 TECHNIQUE: Following enteric contrast, 80 cc of Isovue-370 were injected intravenously, and 60 seconds later, 0.625 mm helical slices were obtained from the mid heart through the subtrochanteric regions. Following reconstruction, 2.5 mm sagittal, coronal and axial reformatted images were processed and reviewed at bone, lung and soft tissue windows. Five minutes later, 0.625 mm helical slices were obtained from the mid heart through the kidneys and viewed at soft tissue windows.The exam was performed using radiation dose optimization techniques including, but not limited to, automated exposure control, adjustment of the mA and/or kV according to patient size and use of iterative reconstruction technique. FINDINGS: The lung bases are moderate patchy groundglass infiltrates in both inferior lower lobe. These show slight progression since the CT one week prior. Could indicate infection or edema . There are no effusions. The visualized heart is borderline large. Abdominal images show moderate fatty change of the liver with a few small stable cysts. No significant focal hepatic abnormality. The gallbladder and bile ducts, both kidneys, adrenal glands, spleen, pancreas and aorta, including aortic branches, are normal in size, configuration and attenuation without focal lesion. There is no free air, free fluid or adenopathy. Pelvic images show normal urinary bladder. Uterus and both ovaries are normal in size, configuration and attenuation for age. The stomach, duodenum and proximal jejunum are decompressed. Moderate dilatation of the mid jejunum to a transition point in the anterior left mesenteric cavity appreciated. There are likely adhesions or strictures at the level of transition point. The jejunum and ileum distal to the transition point is completely decompressed. The colon is also decompressed. Bone windows show no osseous abnormality IMPRESSION: 1. 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 No evidence of free air to suggest perforation or free fluid suggest third spacing. 2. Marked fatty change of the liver with a few hepatic cysts/stable 3. Moderate patchy bibasilar airspace disease in the lung bases showing slight progression. Infection or aspiration is suspected. Consider plain chest x-ray follow-up if there are respiratory symptoms. Interpreted and Authenticated by: Jlaeel Ruelas 02/15/22
[2022-02-15] MEDS ORDERED: ONDANSETRON 4 MG/2 ML VIAL IV PRN (16:34)
--- NOTE | 2022-02-15 16:34 | General Surg History&Physical ---
HPI History of Present Illness Patient information: Note initiated : 02/15/22 at 4:29 pm Service Date, if different from initiated Date: [] Patient: Mary Ellen Jimenez a 61 y/o F admitted on for Abdominal Pain. Chief Complaint: [] Chief complaint: Abdominal pain History of present illness: Ms. Jimenez is a 61 year old F who presented last week with signs and symptoms consistent with a partial small bowel obstruction, patient was admitted to the hospital by Dr. Coats, made n.p.o. Her symptoms resolved spontaneously and she gradually improved. She was having bowel movements and was discharged home on Thursday. Since Thursday she has not had any further bowel movements, her abdomen is gradually gotten more distended, when she eats she feels okay although she does report she has not a lot however when she drinks water she gets crampy abdominal pain. She denies any fevers chills nausea or vomiting. Her only abdominal operations were C-sections, last one was 36 years ago. In that time she has not had any bowel obstructions other than the one that was done ago. She has no sick contacts nor travel outside [facility]. 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) Joint pain (Chronic) Hair loss (Chronic) Carpal tunnel syndrome (Chronic) Diverticulosis of colon (without mention of hemorrhage) (Chronic) Hemorrhoids (Chronic) Dermatitis (Chronic) Onychomycosis of toenail (Chronic) Medical History (Updated 02/15/22 @ 16:31 by Juanito Junior MD) RACHANA positive Anemia Carpal tunnel syndrome Dermatitis Diverticulosis of colon (without mention of hemorrhage) Hair loss Hemorrhoids Hypertrophy of bone of left shoulder Hypopotassemia Joint pain Onychomycosis of toenail Shoulder pain, right Varicose veins of both lower extremities Surgical History History of (~1985) History of colonoscopy (~2017) Family History Other No pertinent family history MEDS/ALLERGIES Home Medications and Allergies Home Medications Medication Instructions Recorded Confirmed Type clobetasol 0.05 % topical ointment 1 applic TOPICAL BID 02/09/22 02/14/22 History losartan 25 mg tablet 2 tab PO HS 02/09/22 02/14/22 History tacrolimus 0.1 % topical ointment 1 applic TOPICAL BID 02/09/22 02/14/22 History levothyroxine 75 mcg tablet 75 mcg PO QDAY #30 tab 02/14/22 02/14/22 Rx Allergies Allergy/AdvReac Type Severity Reaction Status Date / Time No Known Drug Allergies Allergy Verified 02/14/22 10:51 Physical Examination Vital Signs Vital signs: Temp Pulse Resp BP Pulse Ox 100.0 F H 89 18 145/93 96 02/15/22 12:45 02/15/22 12:45 02/15/22 12:45 02/15/22 12:45 02/15/22 12:45 General physical appearance General physical exam: well developed, well nourished and no distress Eyes Eye exam: PERRL and normal ocular movement ENT ENT exam: normal pinna, normal nares, normal mucosa, no hearing loss and no congestion Head Head exam IM: Present atraumatic and normocephalic Neck Neck exam: no masses, no bruits, trachea midline, no lymphadenopathy and no venous distension Cardiovascular Cardiovascular exam IM: Present normal rate and rhythm Respiratory Respiratory exam: normal expansion, normal respiratory effort, clear to percussion and clear to auscultation Abdomen Abdomen: Present soft, non tender, bowel sounds, surgical scars ( scar) and distended; Absent wound, masses, guarding, rigid or rebound Hernia: Present none Genitourinary Genitourinary (Female): Present normal external genitalia Rectum Rectum: Present normal sphincter tone, no hemorrhoids, no tenderness, no masses and no bleeding Integumentary Integumentary: Present no rash, no growths and no abnormal pigmentation Neurologic Neurologic: Present normal coordination and normal sensation Musculoskeletal Musculoskeletal: Present normal gait and normal posture Psychiatric Psychiatric: Present oriented to time, oriented to person, oriented to place, speech is normal and memory intact Results Labs Result diagrams: 02/15/22 13:00 Labs: Abnormal lab results 02/15/22 02/15/22 Range/Units 13:00 13:40 Hgb 11.1 L (11.2-15.7) g/dL POC Hct 34.0 L (36-48) Plt Count 450 H (140-440) K/mcL Lymph # (Auto) 0.98 L (1.50-4.80) K/mcL POC Total CO2 19.0 L (22-30) POC WB Ioniz Calcium 0.93 L (1.16-1.32) Diabetes panel 02/15/22 Range/Units 13:00 AST 22 (<32) U/L ALT 16 (<40) U/L Alkaline Phosphatase 88 (39-117) U/L Total Protein 7.5 (5.9-8.4) gm/dL Albumin 4.0 (3.2-5.2) gm/dL Calcium panel 02/15/22 Range/Units 13:00 Albumin 4.0 (3.2-5.2) gm/dL Adrenal panel 02/15/22 Range/Units 13:00 Total Bilirubin 0.4 (0.1-1.0) mg/dL AST 22 (<32) U/L ALT 16 (<40) U/L Alkaline Phosphatase 88 (39-117) U/L Total Protein 7.5 (5.9-8.4) gm/dL Albumin 4.0 (3.2-5.2) gm/dL All other labs normal. Imaging CT scan - abdomen: report reviewed and image reviewed A/P Assessment and plan (1) SBO (small bowel obstruction): Plan: This is a pleasant 61-year-old female who presents with signs and symptoms most consistent with small bowel obstruction. She is nontoxic-appearing, she has no peritoneal abdominal findings. There are no concerning signs on CT scan for ischemia, no evidence of need for emergent surgical operation at this time. Long discussion with the patient about surgical versus conservative management, 90% of small bowel obstructions resolved with conservative management. She is amenable to this and agrees to admission. Plan: Admit to MedSurg. NPO. No NG tube at this time as she has no current emesis. If patient starts to have emesis will reconsider NG tube at that time. I will plan a small bowel follow-through in the morning to further assess likelihood of bowel obstruction resolving. Status: Acute Time Spent With Patient Time: Total time spent is greater than 50% in coordination of care (as documented) at patient's floor/unit and/or counseling patient:
[2022-02-15] MEDS: DEXTROSE 5%-1/2NS 1,000 ML IV SCH (19:05)
[2022-02-16] MEDS: DEXTROSE 5%-1/2NS 1,000 ML IV SCH ×2 (04:19→16:37)
[2022-02-16 07:45] LABS: Basophils # (Auto) 0.02 K/mcL (0.00-0.30); Basophils % (Auto) 0.4 % (0.0-2.0); Eosinophils # (Auto) 0.22 K/mcL (0.00-0.70); Eosinophils % (Auto) 4.8 % (0.0-7.0); Hematocrit 30.3 % (34.1-44.9); Lymphocytes # (Auto) 0.54 K/mcL (1.50-4.80); Lymphocytes % (Auto) 11.8 % (15.5-49.0); Mean Cell Volume 85.4 fL (80.0-100.0); Mean Platelet Volume 9.7 fL (7.4-10.4); Monocytes # (Auto) 0.53 K/mcL (0.10-0.90); Monocytes % (Auto) 11.6 % (1.0-12.0); Neutrophils % (Auto) 71.4 % (38.0-78.0); Platelet Count 398 K/mcL (140-440); RBC 3.55 M/mcL (3.59-5.38); Red Cell Distribution Width 14.3 % (11.5-14.5); WBC 4.6 K/mcL (4.5-11.0)
[2022-02-16 08:04] LABS: Blood Urea Nitrogen 11 mg/dL (8-23); Calcium 8.1 mg/dL (8.6-10.4); Carbon Dioxide 21 mmol/L (22-30); Chloride 102 mmol/L (96-108); Glomerular Filtration Rate 68; Glucose 104 mg/dL (70-105)
[2022-02-16] MEDS: HYDROmorphone 0.5 MG/0.5 ML SYRINGE IV PRN (10:24)
--- NOTE | 2022-02-16 14:15 | XRay Report ---
CLINICAL INFORMATION: Mid jejunal obstruction COMPARISON: Abdomen and pelvic CT 02/15/2022 TECHNIQUE: Imaging was obtained of the abdomen and pelvis. Following ingestion of water soluble enteric contrast, serial imaging was obtained of the abdomen and pelvis for total of three hours. FINDINGS: There is moderate dilatation of the proximal and mid jejunum with decompression of the distal jejunum, ileum and colon ostensibly related to adhesions or strictures in the mid jejunum. Precise transition point was not unified with certainty. Small bowel transit time one hour 45 minutes.. IMPRESSION: Partial mid jejunal obstruction due to adhesion or stricture. Interpreted and Authenticated by: Jaleel Ruelas 02/16/22
--- NOTE | 2022-02-16 16:25 | General Surgery Progress Note ---
SUBJECTIVE Subjective Patient information: Note initiated : 02/16/22 at 4:23 pm Service Date, if different from initiated Date: [] Patient: Mary Ellen Jimenez 61 y/o F admitted on 02/15/22 for Abdominal Pain. Chief Complaint: [] Principal diagnosis: partial small bowel obstruction Interval history: sbft today, contrast to colon 1 hour 45 min. small BM post sbft Constitutional Vitals: Vital Signs Temp Pulse Resp BP Pulse Ox 99.3 F H 65 18 141/79 96 02/16/22 16:00 02/16/22 16:00 02/16/22 16:00 02/16/22 16:00 02/16/22 16:00 Period Temp Pulse Resp BP Sys/Plummer Pulse Ox Last 24 Hr 97.9 F-99.3 F 63-74 14-18 135-170/72-99 95-97 Intake and Output 02/16/22 02/16/22 02/16/22 05:59 13:59 21:59 Intake Total 911 Balance 911 Intake & Output: Intake & Output 02/16/22 02/16/22 02/16/22 05:59 13:59 21:59 Intake Total 911 Balance 911 Intake: IV 911 Dextrose 5%-1/2Ns IV Solution 1 911 ,000 ml @ 100 mls/hr IV .Q10H [facility] Rx#:[id number] Other: # Voids 4 General appearance: cooperative and no acute distress GI/Abdominal GI/Abdominal exam: Present normal bowel sounds, soft and distended; Absent mass, rebound or tenderness A/P Assessment and plan (1) Partial small bowel obstruction: Plan: sbo, + bm this afternoon, normal small bowel transit time. Plan: cont NPO for now, kub in am. Status: Acute Time Spent With Patient Time: Total time spent is greater than 50% in coordination of care (as documented) at patient's floor/unit and/or counseling patient:
[2022-02-17] MEDS: DEXTROSE 5%-1/2NS 1,000 ML IV SCH ×2 (03:30→10:51)
[2022-02-17 07:15] LABS: Blood Urea Nitrogen 7 mg/dL (8-23); Calcium 7.9 mg/dL (8.6-10.4); Carbon Dioxide 22 mmol/L (22-30); Chloride 103 mmol/L (96-108); Glomerular Filtration Rate 68; Glucose 118 mg/dL (70-105)
[2022-02-17 07:16] LABS: Basophils # (Auto) 0.01 K/mcL (0.00-0.30); Basophils % (Auto) 0.2 % (0.0-2.0); Eosinophils # (Auto) 0.19 K/mcL (0.00-0.70); Eosinophils % (Auto) 4.4 % (0.0-7.0); Hemoglobin 9.3 g/dL (11.2-15.7); Lymphocytes # (Auto) 0.71 K/mcL (1.50-4.80); Lymphocytes % (Auto) 16.3 % (15.5-49.0); Mean Cell Volume 86.6 fL (80.0-100.0); Mean Corpuscular HGB Conc 32.1 g/dL (31.0-36.0); Mean Platelet Volume 9.5 fL (7.4-10.4); Monocytes # (Auto) 0.62 K/mcL (0.10-0.90); Monocytes % (Auto) 14.3 % (1.0-12.0); Neutrophils % (Auto) 64.8 % (38.0-78.0); Platelet Count 379 K/mcL (140-440); RBC 3.35 M/mcL (3.59-5.38); Red Cell Distribution Width 14.6 % (11.5-14.5); WBC 4.4 K/mcL (4.5-11.0)
--- NOTE | 2022-02-17 07:48 | General Surgery Progress Note ---
SUBJECTIVE Subjective Patient information: Note initiated : 02/17/22 at 7:47 am Service Date, if different from initiated Date: [] Patient: Mary Ellen Jimenez 61 y/o F admitted on 02/15/22 for Abdominal Pain. Chief Complaint: [] Principal diagnosis: partial small bowel obstruction Interval history: Small bowel follow-through with contrast to the colon within an hour and 45 minutes. Patient's had no further nausea or emesis overnight, she had multiple bowel movements. KUB this morning with all contrast in colon and through to the rectum. Constitutional Vitals: Vital Signs Temp Pulse Resp BP Pulse Ox 98.3 F 64 18 136/81 97 02/17/22 04:00 02/17/22 04:00 02/17/22 04:00 02/17/22 04:00 02/17/22 04:00 Period Temp Pulse Resp BP Sys/Plummer Pulse Ox Last 24 Hr 97.9 F-99.3 F 64-73 14-18 136-151/72-83 95-98 Intake and Output 02/16/22 02/17/22 02/17/22 21:59 05:59 13:59 Intake Total 1000 1000 Balance 1000 1000 Weight 124 lb 4.8 oz Intake & Output: Intake & Output 02/16/22 02/17/22 02/17/22 21:59 05:59 13:59 Intake Total 1000 1000 Balance 1000 1000 Weight 124 lb 4.8 oz Intake: IV 1000 1000 Dextrose 5%-1/2Ns IV Solution 1 1000 1000 ,000 ml @ 100 mls/hr IV .Q10H [facility] Rx#:[id number] Other: # Voids 3 # Bowel Movements 3 General appearance: cooperative and no acute distress GI/Abdominal GI/Abdominal exam: Present soft; Absent distended or tenderness A/P Assessment and plan (1) Partial small bowel obstruction: Plan: Resolving partial small bowel obstruction. Arias diet as tolerated today. Status: Acute Time Spent With Patient Time: Total time spent is greater than 50% in coordination of care (as documented) at patient's floor/unit and/or counseling patient:
--- NOTE | 2022-02-17 09:39 | XRay Report ---
HISTORY: Follow-up small bowel obstruction FINDINGS: Single supine image was obtained. The oral contrast which was administered on 02/16/22 has cleared from the small intestine and stomach. There is a small amount of residual contrast from the cecum to the rectum. The dilated small bowel seen yesterday has returned to normal caliber. The largest segment is 2.7 cm in diameter and located in the left mid abdomen. There are couple noninflamed diverticula in the descending colon. IMPRESSION: Resolved small bowel obstruction Interpreted and Authenticated by: Edmund Bowman 02/17/22
[2022-02-17] MEDS: 0.9 % SODIUM CHLORIDE 10 ML SYRINGE IV SCH (22:03)
[2022-02-18] MEDS: HYDROmorphone 0.5 MG/0.5 ML SYRINGE IV PRN (00:53)
[2022-02-18] MEDS: 0.9 % SODIUM CHLORIDE 10 ML SYRINGE IV SCH (04:37)
--- NOTE | 2022-02-18 08:38 | Discharge Summary ---
Discharge Provider Provider Patient information: Note initiated : 02/18/22 at 8:36 am Service Date, if different from initiated Date: [] Patient: Mary Ellen Jimenez 61 y/o F admitted on 02/15/22 for Abdominal Pain. Chief Complaint: [] Date of admission: 02/15/22 17:28 Discharge date: 02/18/22 Primary care physician: GILDA Irwin Consults: 02/15/22 Consult to Physician [CONS] Stat Comment: Consulting Provider: Junaito Junior Reason For Exam: Physician to Consult COURSE Hospital Course Hospital course: Patient is admitted for partial small bowel obstruction, recurrent. She had been admitted 1 week prior with similar symptoms, they seem to resolve and she was sent home. 4 days later she represents with a high-grade small bowel obstruction. She had no nausea at that time therefore she was made n.p.o., small bowel follow-through the next day showed evidence of a high-grade bowel obstruction however contrast mated to the colon and 1 hour and 45 minutes, by the next morning the majority the contrast had been cleared through the colon. She was started on a regular diet, tolerated without difficulty, continued to pass flatus and have bowel movements this morning. Discharge diagnosis: Resolved small bowel obstruction Time Spent with Patient Time attestation: Total time spent providing and/or coordinating discharge services: Physical Examination Vital Signs Vital signs: Temp Pulse Resp BP Pulse Ox 97.8 F 69 18 148/85 95 02/18/22 07:11 02/18/22 07:11 02/18/22 07:11 02/18/22 07:11 02/18/22 07:11 Discharge Plan Patient/Caregiver Discharge Instructions Activity: increase activity as tolerated Diet: Regular Diet Instructions: Bowel Obstruction (DC) Activity Restrictions/Additional Instructions: Follow-up with me in clinic in 2 to 3 weeks as needed Prescriptions: No Action levothyroxine 75 mcg tablet 75 mcg PO QDAY Qty: 30 2RF losartan 25 mg tablet 2 tab PO HS 0RF clobetasol 0.05 % Ointment 1 applic TOPICAL BID 0RF tacrolimus 0.1 % Ointment 1 applic TOPICAL BID 0RF potassium chloride 20 mEq Tablet Extended Release 20 meq PO BID 0RF clobetasol 0.05 % ointment 1 applic topical BID 0RF Follow Up Plan Follow up with: Beatty,Oskar B, FILER FINISH [Primary Care Provider] - Patient Disposition: Home, Self-Care Prognosis: Fair Discharge Orders: Discharge Order (Routine); Ordered 02/18/22 Ordered By: Juanito Junior Pending Pending Pending: Resuscitation Status Resuscitate (Full Code) Diet Regular Diet Start ThuFebruary 17 1200 Hydromorphone HCl (Hydromorphone 0.5 Mg/0.5 Ml Syringe) 0.5 mg IV Q1HP PRN; Protocol PRN Reason: Per Pain Protocol Last Admin: 02/18/22 00:53 Dose: 0.5 mg Documented by: Admin: 02/16/22 10:24 Dose: 0.5 mg Documented by: Admin: 02/15/22 14:53 Dose: 0.5 mg Documented by: [id number] Ondansetron HCl (Ondansetron 4 Mg/2 Ml Vial) 4 mg IV Q6HP PRN PRN Reason: Nausea And Vomiting Last Admin: 02/16/22 10:16 Dose: 4 mg Documented by: HO Sodium Chloride (0.9 % Sodium Chloride 10 Ml Syringe) 10 ml IV Q8 REDD Last Admin: 02/18/22 04:37 Dose: 10 ml Documented by: Admin: 02/17/22 22:03 Dose: 10 ml Documented by: CAM Shift Summary 02/18/22 04:45 Shift Summary by Melyssa Jensen Primary Diagnosis: SBO/abdominal pain Registration Status: Inpatient Day of Hospitalization: 02/15 Pertinent Medical Dx/Issue(s): DM, recently admitted and discharged with SBO, but has not had a BM since 02/10. Interventions (wounds, diuresis, etc): PRN pain meds Vital Signs with Trends: VSS on RA. Neuro/Mental Status: Alert and oriented x4; very pleasant and cooperative. Meds (abo, pain, BP, etc): PRN Diluadid x1 with desired results; Lines/Tubes: IV to L hand SL O2, liter flow/saturations: None Lab/Rad results: 02/16 SBFT- Partial mid jejunal obstruction due to adhesion or stricture 02/17 x-ray shows resolved small bowel obstruction. Date of last BM: 02/17 mixed loose with formed stool; No BM on this shift. Elimination (remove Lopez within 24h if appropriate): Voiding per toilet Recommendations/questions for MD: Activity: Independent; Ambulated up and down the hallways independently this shift without issue. Expected date of discharge: TBD Discharge Plan (needs, disposition, etc): TBD Initialized on 02/18/22 04:45 - END OF NOTE
== END 2022-02-18 09:55 | disposition home or self-care (01) | DRG 390 ==
LOC: ED 12:44 → MEDSUR 17:28
PROVIDERS: ADMIT Surgery; ATTEND Surgery

== ENCOUNTER 2022-02-27 15:15 | Inpatient (IN) ==
[2022-02-27] MEDS ORDERED: IOPAMIDOL 100 ML BOTTLE IV ONE (15:16)
--- NOTE | 2022-02-27 16:11 | Emergency Department Note ---
Abdominal Pain HPI <Marsha Martinez PA-C - Last Filed: 02/27/22 20:40> General Chief Complaint: Abdominal Pain Stated Complaint: abdominal pain Time Seen by Provider: 02/27/22 15:22 Source: patient Mode of arrival: ambulatory Limitations: no limitations History of Present Illness HPI Narrative: Narrative: 61-year-old female presents to the emergency department complaining of generalized abdominal pain. This has been going on for over 2 weeks. She was admitted to the hospital for a small bowel obstruction and discharged about 2 weeks ago. She is continued to have pain since that time, however last night it became much more severe and is intolerable at this time. Patient states that anytime she eats or drinks she becomes nauseated. She is not vomiting. She is having bowel movements that start formed and then after she thinks she is finished she will have watery bowel movement. She has severe, sharp, generalized abdominal pain. She denies fevers, sweats, or chills. She has no urinary frequency, urgency, or dysuria. Related Data Home Medications Medication Instructions Recorded Confirmed losartan 25 mg tablet 2 tab PO HS 02/09/22 02/26/22 tacrolimus 0.1 % topical ointment 1 applic TOPICAL BID 02/09/22 02/26/22 clobetasol 0.05 % topical ointment 1 applic TOPICAL BID 02/15/22 02/26/22 potassium chloride 20 mEq 20 meq PO BIDCC 02/15/22 02/26/22 tablet,extended release ibuprofen [Ibuprofen IB] PO PRN 02/26/22 02/26/22 levothyroxine 75 mcg tablet 75 mcg PO ACB 02/27/22 Allergies Allergy/AdvReac Type Severity Reaction Status Date / Time No Known Drug Allergies Allergy Verified 02/26/22 13:14 Review of Systems <Marsha Martinez PA-C - Last Filed: 02/27/22 20:40> ROS ROS Narrative: Narrative: All systems ED: reviewed and negative except as stated. PFSH <Marsha Martinez PA-C - Last Filed: 02/27/22 20:40> Narrative Patient History Narrative: Narrative: Medical/Surgical/Family History All Active Problems (Updated 02/27/22 @ 20:40 by Marsha Martinez PA-C) Partial small bowel obstruction (Acute) Partial small bowel obstruction (Acute) SBO (small bowel obstruction) (Acute) Anemia (Acute) Scalp cyst (Acute) RUQ pain (Acute) Lesion of skin of scalp (Acute) GERD (gastroesophageal reflux disease) (Chronic) Hypothyroidism (Chronic) Diabetes mellitus type 2 in nonobese (Chronic) Shoulder pain, right (Chronic) Varicose veins of both lower extremities (Chronic) Hypopotassemia (Chronic) RACHANA positive (Chronic) 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) Joint pain (Chronic) Hair loss (Chronic) Carpal tunnel syndrome (Chronic) Diverticulosis of colon (without mention of hemorrhage) (Chronic) Hemorrhoids (Chronic) Dermatitis (Chronic) Onychomycosis of toenail (Chronic) Medical History RACHANA positive Anemia Carpal tunnel syndrome Dermatitis Diverticulosis of colon (without mention of hemorrhage) Hair loss Hemorrhoids Hypertrophy of bone of left shoulder Hypopotassemia Joint pain Onychomycosis of toenail Shoulder pain, right Varicose veins of both lower extremities Surgical History History of (~1985) History of colonoscopy (~2017) Family History Other No pertinent family history Social History Smoking Status: Never smoker Exam <Marsha Martinez PA-C - Last Filed: 02/27/22 20:40> Narrative Narrative: Narrative: General Limitations: no limitations General appearance: Present alert and in distress Head Head: Present atraumatic and normocephalic Eye Eye: Present normal appearance, PERRL and EOMI ENT ENT: Present normal exam Neck Neck: Present normal inspection; Absent lymphadenopathy Chest Chest: Present symmetric chest wall rise Respiratory Respiratory: Present normal lung sounds bilaterally Cardiovascular Cardiovascular: Present regular rate, normal rhythm and normal heart sounds Adbominal Abdominal: Present soft, tenderness (Most severe in the left lower, right lower, and right upper abdomen.) and normal bowel sounds Extremities Extremities: Absent pedal edema Back Back: Present normal inspection; Absent CVA tenderness (R) or CVA tenderness (L) Neurological Neurological: Present alert and oriented X3 Psychiatric Psychiatric: Present normal affect Skin Skin: Present warm (WNL) and dry Course <Marsha Martinez PA-C - Last Filed: 02/27/22 20:40> Vital Signs Vital signs: Vital Signs Temperature 98.4 F 02/27/22 15:16 Pulse Rate 81 02/27/22 15:16 Respiratory Rate 16 02/27/22 15:16 Blood Pressure 141/95 02/27/22 15:16 Pulse Oximetry (%) 99 02/27/22 15:16 Temperature 98.8 F 02/28/22 07:00 Pulse Rate 74 02/28/22 07:00 Respiratory Rate 14 02/28/22 07:00 Blood Pressure 146/73 02/28/22 07:00 Pulse Oximetry (%) 95 02/28/22 07:00 <Herbert Dolan MD - Last Filed: 02/28/22 13:50> Vital Signs Vital signs: Vital Signs Temperature 98.4 F 02/27/22 15:16 Pulse Rate 81 02/27/22 15:16 Respiratory Rate 16 02/27/22 15:16 Blood Pressure 141/95 02/27/22 15:16 Pulse Oximetry (%) 99 02/27/22 15:16 Temperature 98.8 F 02/28/22 07:00 Pulse Rate 74 02/28/22 07:00 Respiratory Rate 14 02/28/22 07:00 Blood Pressure 146/73 02/28/22 07:00 Pulse Oximetry (%) 95 02/28/22 07:00 MDM <Marsha Martinez PA-C - Last Filed: 02/27/22 20:40> MDM Narrative Medical decision making narrative: Narrative: CBC, CMP, UA and CT of the abdomen pelvis were ordered. Patient was medicated with morphine 4 mg IV for pain. CT scan continues to show a high-grade partial obstruction at the mid jejunum. I did speak with Dr. Coats, the on-call surgeon, he will admit this patient. Patient is still in the emergency department awaiting a bed in the hospital. A bed should be available in the morning. Patient will remain in the emergency department till that time. I discussed patient with Dr. Dolan. An NG tube has been ordered. Lab Data Result diagrams: 02/28/22 07:01 02/28/22 07:01 Labs: Lab Results 02/27/22 02/27/22 02/27/22 Range/Units 15:35 16:00 16:00 WBC 4.6 (4.5-11.0) K/mcL RBC 3.74 (3.59-5.38) M/mcL Hgb 10.7 L (11.2-15.7) g/dL Hct 32.4 L (34.1-44.9) % MCV 86.6 (80.0-100.0) fL MCH 28.6 (26.0-34.0) pg MCHC 33.0 (31.0-36.0) g/dL RDW 14.6 H (11.5-14.5) % Plt Count 366 (140-440) K/mcL MPV 9.3 (7.4-10.4) fL Neut % (Auto) 64.9 (38.0-78.0) % Lymph % (Auto) 18.2 (15.5-49.0) % [place] % (Auto) 13.0 H (1.0-12.0) % Eos % (Auto) 3.0 (0.0-7.0) % Baso % (Auto) 0.9 (0.0-2.0) % Lymph # (Auto) 0.84 L (1.50-4.80) K/mcL [place] # (Auto) 0.60 (0.10-0.90) K/mcL Eos # (Auto) 0.14 (0.00-0.70) K/mcL Baso # (Auto) 0.04 (0.00-0.30) K/mcL Absolute Neutrophils 2.99 (1.80-8.00) K/mcL Sodium 138 (133-145) mmol/L Potassium 4.6 (3.3-5.1) mmol/L Chloride 107 (96-108) mmol/L Carbon Dioxide 21 L (22-30) mmol/L Anion Gap 10.0 (8.0-16.0) BUN 16 (8-23) mg/dL Creatinine 1.3 H (0.6-1.1) mg/dL GFR Calculation 43 Glucose 129 H (70-105) mg/dL Calcium 9.1 (8.6-10.4) mg/dL Total Bilirubin 0.3 (0.1-1.0) mg/dL AST 18 (<32) U/L ALT 12 (<40) U/L Alkaline Phosphatase 69 (39-117) U/L Total Protein 7.1 (5.9-8.4) gm/dL Albumin 3.9 (3.2-5.2) gm/dL Globulin 3.2 (2.2-3.7) gm/dL Albumin/Globulin Ratio 1.2 (1.0-2.3) Urine Color Yellow Urine Appearance Hazy A (Clear) Urine pH 5.0 (5.0-9.0) Ur Specific [place] 1.018 (1.000-1.035) Urine Protein Negative (Negative) mg/dL Urine Glucose (UA) Negative (Negative) mg/dL Urine Ketones 5 A (Negative) mg/dL Urine Occult Blood 0.03 (Negative) mg/dL Urine Nitrate Negative (Negative) Urine Bilirubin Negative (Negative) mg/dL Urine Urobilinogen Negative mg/dL Ur Leukocyte Esterase 75 A (Negative) /uL Urine RBC 2 (0-3) /hpf Urine WBC 8 H (0-4) /hpf Ur Squamous Epith Cells 3 (0-4) /hpf Ur Transition Epith Cell < 1 (0-2) /hpf Urine Bacteria Few A (0) /hpf Hyaline Casts 1 (0-2) /lph Granular Casts 24 H (0-0) /lph Urine Mucus Mod A (None) /hpf Ur Culture Indicated? Yes <Herbert Dolan MD - Last Filed: 02/28/22 13:50> MDM Narrative Medical decision making narrative: Narrative: CBC, CMP, UA and CT of the abdomen pelvis were ordered. Patient was medicated with morphine 4 mg IV for pain. CT scan continues to show a high-grade partial obstruction at the mid jejunum. I did speak with Dr. Coats, the on-call surgeon, he will admit this patient. Patient is still in the emergency department awaiting a bed in the hospital. A bed should be available in the morning. Patient will remain in the emergency department till that time. I discussed patient with Dr. Dolan. An NG tube has been ordered. Kelsi: I discussed use of lidocaine in the nasal passages with the nurses. They successfully placed an NG tube. Large amounts of fluid were aspirated out of the tube after its insertion. I obtained a post procedure x-ray and it indicated that the tube was in the stomach. Patient was admitted to the hospital. Kelsi Lab Data Labs: Lab Results 02/27/22 02/27/22 02/27/22 Range/Units 15:35 16:00 16:00 WBC 4.6 (4.5-11.0) K/mcL RBC 3.74 (3.59-5.38) M/mcL Hgb 10.7 L (11.2-15.7) g/dL Hct 32.4 L (34.1-44.9) % MCV 86.6 (80.0-100.0) fL MCH 28.6 (26.0-34.0) pg MCHC 33.0 (31.0-36.0) g/dL RDW 14.6 H (11.5-14.5) % Plt Count 366 (140-440) K/mcL MPV 9.3 (7.4-10.4) fL Neut % (Auto) 64.9 (38.0-78.0) % Lymph % (Auto) 18.2 (15.5-49.0) % [place] % (Auto) 13.0 H (1.0-12.0) % Eos % (Auto) 3.0 (0.0-7.0) % Baso % (Auto) 0.9 (0.0-2.0) % Lymph # (Auto) 0.84 L (1.50-4.80) K/mcL [place] # (Auto) 0.60 (0.10-0.90) K/mcL Eos # (Auto) 0.14 (0.00-0.70) K/mcL Baso # (Auto) 0.04 (0.00-0.30) K/mcL Absolute Neutrophils 2.99 (1.80-8.00) K/mcL Sodium 138 (133-145) mmol/L Potassium 4.6 (3.3-5.1) mmol/L Chloride 107 (96-108) mmol/L Carbon Dioxide 21 L (22-30) mmol/L Anion Gap 10.0 (8.0-16.0) BUN 16 (8-23) mg/dL Creatinine 1.3 H (0.6-1.1) mg/dL GFR Calculation 43 Glucose 129 H (70-105) mg/dL Calcium 9.1 (8.6-10.4) mg/dL Total Bilirubin 0.3 (0.1-1.0) mg/dL AST 18 (<32) U/L ALT 12 (<40) U/L Alkaline Phosphatase 69 (39-117) U/L Total Protein 7.1 (5.9-8.4) gm/dL Albumin 3.9 (3.2-5.2) gm/dL Globulin 3.2 (2.2-3.7) gm/dL Albumin/Globulin Ratio 1.2 (1.0-2.3) Urine Color Yellow Urine Appearance Hazy A (Clear) Urine pH 5.0 (5.0-9.0) Ur Specific [place] 1.018 (1.000-1.035) Urine Protein Negative (Negative) mg/dL Urine Glucose (UA) Negative (Negative) mg/dL Urine Ketones 5 A (Negative) mg/dL Urine Occult Blood 0.03 (Negative) mg/dL Urine Nitrate Negative (Negative) Urine Bilirubin Negative (Negative) mg/dL Urine Urobilinogen Negative mg/dL Ur Leukocyte Esterase 75 A (Negative) /uL Urine RBC 2 (0-3) /hpf Urine WBC 8 H (0-4) /hpf Ur Squamous Epith Cells 3 (0-4) /hpf Ur Transition Epith Cell < 1 (0-2) /hpf Urine Bacteria Few A (0) /hpf Hyaline Casts 1 (0-2) /lph Granular Casts 24 H (0-0) /lph Urine Mucus Mod A (None) /hpf Ur Culture Indicated? Yes Discharge Plan Patient/Caregiver Discharge Instructions Pt seen by CAR REPAIRMAN/PA only: Yes Clinical Impression: Partial small bowel obstruction Patient Disposition: Still a Patient Discharge Date/Time: 02/27/22 22:58
[2022-02-27] MEDS: morphine 4 MG/ML VIAL IV PRN ×2 (16:13→20:40)
[2022-02-27 16:28] LABS: Basophils # (Auto) 0.04 K/mcL (0.00-0.30); Basophils % (Auto) 0.9 % (0.0-2.0); Eosinophils # (Auto) 0.14 K/mcL (0.00-0.70); Hematocrit 32.4 % (34.1-44.9); Hemoglobin 10.7 g/dL (11.2-15.7); Lymphocytes # (Auto) 0.84 K/mcL (1.50-4.80); Lymphocytes % (Auto) 18.2 % (15.5-49.0); Mean Cell Volume 86.6 fL (80.0-100.0); Mean Platelet Volume 9.3 fL (7.4-10.4); Neutrophils % (Auto) 64.9 % (38.0-78.0); Platelet Count 366 K/mcL (140-440); RBC 3.74 M/mcL (3.59-5.38); Red Cell Distribution Width 14.6 % (11.5-14.5); WBC 4.6 K/mcL (4.5-11.0)
[2022-02-27 16:53] LABS: ALT/SGPT 12 U/L (<40); AST/SGOT 18 U/L (<32); Albumin 3.9 gm/dL (3.2-5.2); Albumin/Globulin Ratio 1.2 (1.0-2.3); Alkaline Phosphatase 69 U/L (39-117); Bilirubin,Total 0.3 mg/dL (0.1-1.0); Blood Urea Nitrogen 16 mg/dL (8-23); Calcium 9.1 mg/dL (8.6-10.4); Carbon Dioxide 21 mmol/L (22-30); Chloride 107 mmol/L (96-108); Globulin 3.2 gm/dL (2.2-3.7); Glomerular Filtration Rate 43; Glucose 129 mg/dL (70-105)
--- NOTE | 2022-02-27 16:57 | Cat Scan Report ---
CLINICAL INFORMATION: Abdominal pain COMPARISON: Abdomen and pelvic CT 10 days prior 02/15/2022. TECHNIQUE: Following enteric contrast, 80 cc of Isovue-[id number] were injected intravenously, and 60 seconds later, 0.625 mm helical slices were obtained from the mid heart through the subtrochanteric regions. Following reconstruction, 2.5 mm sagittal, coronal and axial reformatted images were processed and reviewed at bone, lung and soft tissue windows. Five minutes later, 0.625 mm helical slices were obtained from the mid heart through the kidneys and viewed at soft tissue windows.The exam was performed using radiation dose optimization techniques including, but not limited to, automated exposure control, adjustment of the mA and/or kV according to patient size and use of iterative reconstruction technique. FINDINGS: The lung bases are now clear. There is been interval resolution of bibasilar groundglass infiltrates. Visualized heart is borderline enlarged. There are no effusions. Abdominal images again show moderate fatty change of the liver with a few small stable cysts. No significant focal hepatic abnormality. The gallbladder and bile ducts, both kidneys, adrenal glands, spleen, pancreas and aorta, including aortic branches, are normal in size, configuration and attenuation without focal lesion. There is no free air, free fluid or adenopathy. Pelvic images show normal urinary bladder. Uterus and both ovaries are normal in size, configuration and attenuation for age. A 9 mm mural fibroid is seen in the posterior mid uterus. The stomach, duodenum and proximal jejunum are decompressed. Marked dilatation of the mid jejunum to a transition point in the anterior left mesenteric cavity appreciated. There are likely adhesions or strictures at the level of transition point. The jejunum and ileum distal to the transition point is completely decompressed. The colon is also decompressed. Bone windows show no osseous abnormality IMPRESSION: 1. 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 No evidence of free air to suggest perforation or free fluid suggest third spacing. 2. Marked fatty change of the liver with a few hepatic cysts/stable 3. Interval resolution of bibasilar infiltrates.. Interpreted and Authenticated by: Jaleel Ruelas 02/27/22
[2022-02-27 18:07] LABS: Appearance,Urine HAZY (Clear); Bacteria,Urine FEW /hpf (0); Bilirubin,Urine Negative (Negative); Color,Urine YELLOW; Culture Indicated,Urine Yes; Glucose,Urine (UA) Negative (Negative); Ketones,Urine 5 mg/dL (Negative); Leukocyte Esterase,Urine 75 /uL (Negative); Mucus,Urine MOD /hpf; Nitrate,Urine Negative (Negative); Protein,Urine Negative (Negative); Specific Gravity,Urine 1.018 (1.000-1.035); Urine Blood 0.03 mg/dL (Negative); Urine Granular Cast 24 /lph (0-0); Urine Hyaline Cast 1 /lph (0-2); Urine RBC 2 /hpf (0-3); Urine Squamous Epithelial Cell 3 /hpf (0-4); Urine Transitional Epi Cells < 1 /hpf (0-2); Urine WBC 8 /hpf (0-4); Urobilinogen,Urine Negative
[2022-02-27] MEDS ORDERED: LIDOCAINE 4% TOP SOL 50ML BOTTLE TOPICAL ONE (21:32)
[2022-02-27] MEDS ORDERED: LIDOCAINE JEL 2% 1 TUBE 5ML TOPICAL ONE (21:39)
--- NOTE | 2022-02-27 21:40 | General Surgery Consult Note ---
HPI Data of Consult Patient: known to practice within the last 3 years Consult date: 02/27/22 Primary Care Provider: GILDA Irwin Consult Narrative Chief complaint: Recurrent SBO Reason for consult: Recurrent SBO History of present illness: Mary Ellen is seen back in the ER tonight after 2 recent admissions for relatively mild and quick to resolve Partial SBO over the past few weeks. On her most recent admission, she underwent a SBFT that was felt to be normal. She was advanced on a diet and sent home. She returns now with ongoing abdominal pain that had been there since discharge but intensified greatly overnight. She has not vomited and has been passing gas and stool. A CT Scan was obtained once again demonstrating findings consistent with persistent SBO in what appears to be the Mid Small Bowel. As has been noted before, she has only had 2 prior C sections and the obstructions have been presumed to be adhesion related. cc:: CC: Review of Systems All systems: reviewed and no additional remarkable complaints except as stated Constitutional Additional comments: no fevers, chills or weight loss EENT Additional comments: no recent changes Cardiovascular Cardiovascular: Absent chest pain or chest pain at rest Respiratory Respiratory: Absent hemoptysis Additional comments: no SOB Gastrointestinal Gastrointestinal: Present as per HPI Genitourinary Additional comments: no hematuria or dysuria Integumentary Additional comments: no recent skin changes Neurological Additional comments: no recent changes Psychiatric Additional comments: has been anxious about current medical issues Hematologic/Lymphatic Hematologic/Lymphatic: Absent easy bleeding or lymphadenopathy PFSH PFSH All Active Problems (Updated 02/27/22 @ 20:40 by Marsha Martinez PA-C) Partial small bowel obstruction (Acute) Partial small bowel obstruction (Acute) SBO (small bowel obstruction) (Acute) Anemia (Acute) Scalp cyst (Acute) RUQ pain (Acute) Lesion of skin of scalp (Acute) GERD (gastroesophageal reflux disease) (Chronic) Hypothyroidism (Chronic) Diabetes mellitus type 2 in nonobese (Chronic) Shoulder pain, right (Chronic) Varicose veins of both lower extremities (Chronic) Hypopotassemia (Chronic) RACHANA positive (Chronic) 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) Joint pain (Chronic) Hair loss (Chronic) Carpal tunnel syndrome (Chronic) Diverticulosis of colon (without mention of hemorrhage) (Chronic) Hemorrhoids (Chronic) Dermatitis (Chronic) Onychomycosis of toenail (Chronic) Medical History RACHANA positive Anemia Carpal tunnel syndrome Dermatitis Diverticulosis of colon (without mention of hemorrhage) Hair loss Hemorrhoids Hypertrophy of bone of left shoulder Hypopotassemia Joint pain Onychomycosis of toenail Shoulder pain, right Varicose veins of both lower extremities Surgical History History of (~1985) History of colonoscopy (~2017) Family History Other No pertinent family history MEDS/ALLERGIES Home Medications and Allergies Home Medications Medication Instructions Recorded Confirmed Type losartan 25 mg tablet 2 tab PO HS 02/09/22 02/26/22 History tacrolimus 0.1 % topical ointment 1 applic TOPICAL BID 02/09/22 02/26/22 History clobetasol 0.05 % topical ointment 1 applic TOPICAL BID 02/15/22 02/26/22 History potassium chloride 20 mEq 20 meq PO BIDCC 02/15/22 02/26/22 History tablet,extended release ibuprofen [Ibuprofen IB] PO PRN 02/26/22 02/26/22 History levothyroxine 75 mcg tablet 75 mcg PO ACB 02/27/22 History Allergies Allergy/AdvReac Type Severity Reaction Status Date / Time No Known Drug Allergies Allergy Verified 02/26/22 13:14 Physical Examination Vital Signs Vital signs: Temp Pulse Resp BP Pulse Ox 98.4 F 74 16 139/78 95 02/27/22 15:16 02/27/22 21:00 02/27/22 15:16 02/27/22 21:00 02/27/22 21:00 General physical appearance General physical exam: well developed, well nourished and no distress Eyes Eye exam: other (normal appearance with anicteric sclera ) ENT ENT exam: normal pinna Head Head exam IM: Present atraumatic, normal inspection and normocephalic Neck Neck exam: trachea midline and no lymphadenopathy Cardiovascular Cardiovascular exam IM: Present normal rate and rhythm Respiratory Respiratory exam: other (normal respiratory effort without distress ) Abdomen Abdomen: Present soft (mild distension, non tender, no peritoneal findings or issues) Genitourinary Genitourinary (Female): Present other (no CVA tenderness) Integumentary Integumentary: Present other (normal appearing intact skin ) Neurologic Neurologic: Present other (grossly intact ) Psychiatric Psychiatric: Present oriented to time, oriented to person and oriented to place Results Labs Result diagrams: 02/27/22 16:00 02/27/22 16:00 Labs: Abnormal lab results 02/27/22 02/27/22 02/27/22 Range/Units 15:35 16:00 16:00 Hgb 10.7 L (11.2-15.7) g/dL Hct 32.4 L (34.1-44.9) % RDW 14.6 H (11.5-14.5) % Petroleum % (Auto) 13.0 H (1.0-12.0) % Lymph # (Auto) 0.84 L (1.50-4.80) K/mcL Carbon Dioxide 21 L (22-30) mmol/L Creatinine 1.3 H (0.6-1.1) mg/dL Glucose 129 H (70-105) mg/dL Urine Appearance Hazy A (Clear) Urine Ketones 5 A (Negative) mg/dL Ur Leukocyte Esterase 75 A (Negative) /uL Urine WBC 8 H (0-4) /hpf Urine Bacteria Few A (0) /hpf Granular Casts 24 H (0-0) /lph Urine Mucus Mod A (None) /hpf Diabetes panel 02/27/22 Range/Units 16:00 Sodium 138 (133-145) mmol/L Potassium 4.6 (3.3-5.1) mmol/L Chloride 107 (96-108) mmol/L Carbon Dioxide 21 L (22-30) mmol/L BUN 16 (8-23) mg/dL Creatinine 1.3 H (0.6-1.1) mg/dL Glucose 129 H (70-105) mg/dL Calcium 9.1 (8.6-10.4) mg/dL AST 18 (<32) U/L ALT 12 (<40) U/L Alkaline Phosphatase 69 (39-117) U/L Total Protein 7.1 (5.9-8.4) gm/dL Albumin 3.9 (3.2-5.2) gm/dL Calcium panel 02/27/22 Range/Units 16:00 Calcium 9.1 (8.6-10.4) mg/dL Albumin 3.9 (3.2-5.2) gm/dL Pituitary panel 02/27/22 Range/Units 16:00 Sodium 138 (133-145) mmol/L Potassium 4.6 (3.3-5.1) mmol/L Chloride 107 (96-108) mmol/L Carbon Dioxide 21 L (22-30) mmol/L BUN 16 (8-23) mg/dL Creatinine 1.3 H (0.6-1.1) mg/dL Glucose 129 H (70-105) mg/dL Calcium 9.1 (8.6-10.4) mg/dL Adrenal panel 02/27/22 Range/Units 16:00 Sodium 138 (133-145) mmol/L Potassium 4.6 (3.3-5.1) mmol/L Chloride 107 (96-108) mmol/L Carbon Dioxide 21 L (22-30) mmol/L BUN 16 (8-23) mg/dL Creatinine 1.3 H (0.6-1.1) mg/dL Glucose 129 H (70-105) mg/dL Calcium 9.1 (8.6-10.4) mg/dL Total Bilirubin 0.3 (0.1-1.0) mg/dL AST 18 (<32) U/L ALT 12 (<40) U/L Alkaline Phosphatase 69 (39-117) U/L Total Protein 7.1 (5.9-8.4) gm/dL Albumin 3.9 (3.2-5.2) gm/dL All other labs normal. A/P Assessment and plan (1) Partial small bowel obstruction: Assessment and plan: Recurrent and/or persistent non resolving Partial SBO Given the recurrence of this after apparent resolution several times now over the past few weeks, my recommendation is to proceed to the OR for exploration in an attempt to definitively resolve this for her. This is discussed with her at length and a full discussion of Risks, Benefits, Potential Complications and Alternative Treatment Options were all reviewed at length. My plan would be to start with Diagnostic Laparoscopy initially in hopes that this would be resolved with minimally invasive Lysis of Adhesions but possible need for conversion to an open procedure, bowel resection and unexpected findings were also discussed. She appears quite benign clinically and we'll plan to go ahead with NGT decompression overnight along with IVFs and pain control as needed with procession to the OR tomorrow AM She is agreeable to our recommended plan and all questions/concerns are answered and discussed Status: Acute Time Spent With Patient Time: Total time spent is greater than 50% in coordination of care (as documented) at patient's floor/unit and/or counseling patient:
[2022-02-27] MEDS ORDERED: ONDANSETRON 4 MG/2 ML VIAL IV PRN (21:49)
[2022-02-27] MEDS ORDERED: HYDROmorphone 0.5 MG/0.5 ML SYRINGE IV PRN (21:55)
[2022-02-27] MEDS ORDERED: NALOXONE HCL 0.4 MG/ML VIAL IV PRN (21:55)
[2022-02-27] MEDS: DEXTROSE 5%-LR 1,000 ML IV SCH (23:48)
--- NOTE | 2022-02-28 02:33 | XRay Report ---
CLINICAL INFORMATION: NG tube placement. Small bowel obstruction COMPARISON: None. FINDINGS: NG tube overlies the gastric body. Stomach and a few loops of small bowel are moderately dilated bowel small bowel obstruction.. There is no free air, soft tissue mass, organomegaly or pathologic calcification. IMPRESSION: , Small bowel obstruction pattern. NG tube overlies the gastric body Interpreted and Authenticated by: Jaleel Ruelas 02/28/22
[2022-02-28] MEDS ORDERED: DEXTROSE 5%-LR 1,000 ML IV SCH (06:49)
[2022-02-28 07:36] LABS: Hemoglobin 10.1 g/dL (11.2-15.7); Mean Cell Volume 86.1 fL (80.0-100.0); Mean Corpuscular HGB Conc 32.6 g/dL (31.0-36.0); Mean Platelet Volume 9.3 fL (7.4-10.4); Platelet Count 341 K/mcL (140-440); Red Cell Distribution Width 14.7 % (11.5-14.5); WBC 4.8 K/mcL (4.5-11.0)
[2022-02-28] MEDS: DEXTROSE 5%-LR 1,000 ML IV SCH ×3 (07:49→21:47)
[2022-02-28 08:01] LABS: Blood Urea Nitrogen 14 mg/dL (8-23); Calcium 8.5 mg/dL (8.6-10.4); Carbon Dioxide 23 mmol/L (22-30); Chloride 107 mmol/L (96-108); Glomerular Filtration Rate 48; Glucose 140 mg/dL (70-105)
[2022-02-28] MEDS ORDERED: PIPERACILLIN SODIUM/TAZOBACTAM 3.375 GM in DEXTROSE 5% IN WATER 50 ML IV SCH (10:00)
--- NOTE | 2022-02-28 10:13 | General Surgery Progress Note ---
SUBJECTIVE Subjective Patient information: Note initiated : 02/28/22 at 10:07 am Service Date, if different from initiated Date: [] Patient: Mary Ellen Jimenez 61 y/o F admitted on 02/27/22 for abdominal pain. Chief Complaint: [] Less pain but still has some soreness. Passing some gas, NGT now out. Constitutional Vitals: Vital Signs Temp Pulse Resp BP Pulse Ox 98.8 F 74 14 153/88 95 02/28/22 07:00 02/28/22 07:00 02/28/22 07:00 02/28/22 04:00 02/28/22 07:00 Period Temp Pulse Resp BP Sys/Plummer Pulse Ox Last 24 Hr 98.4 F-98.8 F 60-92 14-18 133-183/78-129 92-99 Intake and Output 02/27/22 02/28/22 02/28/22 21:59 05:59 13:59 Intake Total 1100 Output Total 950 300 Balance -950 800 Weight 115 lb 119 lb 9.6 oz Intake & Output: Intake & Output 02/27/22 02/28/22 02/28/22 21:59 05:59 13:59 Intake Total 1100 Output Total 950 300 Balance -950 800 Weight 115 lb 119 lb 9.6 oz Intake: IV 1100 Dextrose 5%-Lactated Ringers 1, 1100 000 ml @ 100 mls/hr IV .Q10H [facility] Rx#:[id number] Output: Gastric Drainage 600 Right Nare 600 Void Amount 350 300 Other: Urine Appearance Clear Clear Urine Color Bright Yellow Dark Yellow Urine Odor Normal Normal Exam: Looks non toxic, doing well, otherwise Cardiovascular Cardiovascular exam: Present normal rate and rhythm and RRR GI/Abdominal Additional comments: soft and non tender, non distended, no mass A/P Assessment and plan (1) Partial small bowel obstruction: Assessment and plan: Recurrent SBO To the OR today for Diagnostic Laparoscopy with possible conversion to open Issues discussed at length including a full discussion of Risks, Benefits, Potential Complication and Alternative Treatment Options all reviewed previously and at length again today Status: Acute Time Spent With Patient Time: Total time spent is greater than 50% in coordination of care (as documented) at patient's floor/unit and/or counseling patient:
[2022-02-28] MEDS ORDERED: ALBUMIN HUMAN 25 GM/100 ML BAG IV ONE ×2 (10:18→10:19)
[2022-02-28] MEDS ORDERED: FAMOTIDINE/PF 20 MG/2 ML VIAL IV ONE (10:22)
[2022-02-28] MEDS ORDERED: ROCURONIUM 10 MG/ML ML IV ONE (10:22)
[2022-02-28] MEDS ORDERED: diphenhydrAMINE 50 MG/ML VIAL ONE (10:22)
[2022-02-28] MEDS ORDERED: BUPIVACAINE 0.25% 50 ML VIAL IJ ONE (10:22)
[2022-02-28] MEDS ORDERED: DEXAMETHASONE 10 MG/ML VIAL ONE (10:22)
[2022-02-28] MEDS ORDERED: MAGNESIUM SULFATE 2 GM/50 ML BAG IV ONE (10:22)
[2022-02-28] MEDS ORDERED: METOPROLOL TARTRATE 5 MG/5 ML VIAL IV ONE (10:22)
[2022-02-28] MEDS ORDERED: fentaNYL 100 MCG/2 ML VIAL IV ONE (10:22)
[2022-02-28] MEDS ORDERED: SUGAMMADEX SODIUM 200 MG/2 ML VIAL IV ONE (10:22)
[2022-02-28] MEDS ORDERED: METOCLOPRAMIDE 10 MG/2 ML VIAL ONE (10:22)
[2022-02-28] MEDS ORDERED: ONDANSETRON 4 MG/2 ML VIAL ONE (10:22)
[2022-02-28] MEDS ORDERED: LIDOCAINE HCL/PF 100 MG/5 ML SYRINGE IV ONE (10:22)
[2022-02-28] MEDS ORDERED: KETAMINE 50 MG/ML Syringe (ANEST) IV ONE (10:22)
[2022-02-28] MEDS ORDERED: PROPOFOL 200 MG/20 ML VIAL IV ONE (10:22)
[2022-02-28] MEDS ORDERED: GLYCOPYRROLATE 0.2 MG/ML VIAL IV ONE (10:22)
[2022-02-28] MEDS ORDERED: LIDOCAINE 5% OINT TUBE 35GM TOPICAL ONE (11:42)
[2022-02-28] MEDS ORDERED: fentaNYL 100 MCG/2 ML VIAL IV PRN (11:58)
[2022-02-28] MEDS ORDERED: MEPERIDINE 25 MG/ML VIAL IV PRN (11:58)
[2022-02-28] MEDS ORDERED: PROMETHAZINE 25 MG/ML VIAL IV PRN (11:58)
[2022-02-28] MEDS ORDERED: IPRATROPIUM/ALBUTEROL 3 ML AMPUL.NEB NEB PRN (11:58)
[2022-02-28] MEDS ORDERED: LACTATED RINGERS 250 ML IV PRN (11:58)
[2022-02-28] MEDS ORDERED: ACETAMINOPHEN 1,000 MG/100 ML BAG IV ONE (11:58)
[2022-02-28] MEDS ORDERED: ONDANSETRON 4 MG/2 ML VIAL IV PRN (11:58)
[2022-02-28] MEDS ORDERED: KETOROLAC 30 MG/ML VIAL IV PRN (11:58)
[2022-02-28] MEDS ORDERED: LACTATED RINGERS 1,000 ML IV SCH (12:00)
[2022-02-28] MEDS ORDERED: ACETAMINOPHEN 800 MG/80 ML BAG IV ONE (12:15)
[2022-02-28] MEDS ORDERED: BUPIVACAINE W/EPI 0.5% 50 ML VIAL IJ ONE (13:23)
--- NOTE | 2022-02-28 13:24 | Brief Operative Note ---
Brief Operative Note Date of procedure: 02/28/22 Pre-op diagnosis: Recurrent Small Bowel Obstruction Post-op diagnosis: other (Partially Obstructing Mid Jejunal Strictures, ? Crohn's ) Procedure: Diagnostic Laparoscopy, Lap Assisted Mid Small Bowel Resection Grafts/Implants: Yes (19 FR Round Donal Drain x 1 ) Anesthesia: GETA Findings: Point of apparent obstruction and transition from distended to decompressed small bowel appeared to be at the level of the mid small bowel at an area of 2 adjacent foci of what appeared to be strictured inflamed indurated narrowing ? Crohn's stricture Complications: none Surgeon: Nick Coats Estimated blood loss (cc): 5 Specimens Removed/Pathology: other (Strictured segment of obstructed mid small bowel ) Condition: stable Disposition: PACU
[2022-02-28] MEDS ORDERED: SUCRETS LOZENGE PO PRN (13:34)
[2022-02-28] MEDS ORDERED: ACETAMINOPHEN 500 MG/50 ML BAG IV SCH (13:45)
[2022-02-28] MEDS ORDERED: hydrALAZINE 20 MG/ML VIAL IV PRN (14:05)
[2022-02-28] MEDS: PIPERACILLIN SODIUM/TAZOBACTAM 3.375 GM in DEXTROSE 5% IN WATER 50 ML IV SCH ×2 (16:50→23:35)
[2022-02-28] MEDS: ACETAMINOPHEN 500 MG/50 ML BAG IV SCH (21:48)
[2022-02-28] MEDS: 0.9 % SODIUM CHLORIDE 10 ML SYRINGE IV SCH ×2 (21:48→23:38)
[2022-03-01] MEDS: ACETAMINOPHEN 500 MG/50 ML BAG IV SCH ×3 (05:04→22:09)
[2022-03-01] MEDS: 0.9 % SODIUM CHLORIDE 10 ML SYRINGE IV SCH ×3 (05:04→22:10)
[2022-03-01] MEDS: DEXTROSE 5%-LR 1,000 ML IV SCH ×3 (05:39→18:30)
[2022-03-01 06:01] LABS: Hematocrit 25.4 % (34.1-44.9); Hemoglobin 8.1 g/dL (11.2-15.7); Mean Cell Volume 86.1 fL (80.0-100.0); Mean Corpuscular HGB Conc 31.9 g/dL (31.0-36.0); Mean Platelet Volume 9.5 fL (7.4-10.4); Platelet Count 280 K/mcL (140-440); RBC 2.95 M/mcL (3.59-5.38); Red Cell Distribution Width 14.7 % (11.5-14.5)
[2022-03-01 06:22] LABS: Blood Urea Nitrogen 11 mg/dL (8-23); Calcium 7.9 mg/dL (8.6-10.4); Carbon Dioxide 22 mmol/L (22-30); Chloride 107 mmol/L (96-108); Glomerular Filtration Rate 43; Glucose 118 mg/dL (70-105)
[2022-03-01] MEDS: PANTOPRAZOLE 40 MG VIAL IV SCH (07:30)
[2022-03-01] MEDS: PIPERACILLIN SODIUM/TAZOBACTAM 3.375 GM in DEXTROSE 5% IN WATER 50 ML IV SCH (08:00)
[2022-03-01] MEDS: HYDROmorphone 0.5 MG/0.5 ML SYRINGE IV PRN ×2 (13:24→20:08)
--- NOTE | 2022-03-01 13:34 | General Surgery Progress Note ---
SUBJECTIVE Subjective Patient information: Note initiated : 03/01/22 at 11:29 am Service Date, if different from initiated Date: [] Patient: Mary Ellen Jimenez 62 y/o F admitted on 02/27/22 for abdominal pain. Chief Complaint: [POD #1 Segmental SB Resection] Denies much pain, bothered by NGT, no gas yet, ram remains in place Constitutional Vitals: Vital Signs Temp Pulse Resp BP Pulse Ox 99.7 F H 66 16 111/64 96 03/01/22 08:00 03/01/22 08:00 03/01/22 08:00 03/01/22 08:00 03/01/22 08:00 Period Temp Pulse Resp BP Sys/Plummer Pulse Ox Last 24 Hr 97.8 F-99.7 F 66-80 10-18 111-186/64-100 92-100 Intake and Output 02/28/22 03/01/22 03/01/22 21:59 05:59 13:59 Intake Total 1340 1233 Output Total 1845 705 95 Balance -505 528 -95 Weight 127 lb Intake & Output: Intake & Output 02/28/22 03/01/22 03/01/22 21:59 05:59 13:59 Intake Total 1340 1233 Output Total 1845 705 95 Balance -505 528 -95 Weight 127 lb Intake: IV 940 1133 Dextrose 5%-Lactated Ringers 1, 890 983 000 ml @ 125 mls/hr IV .Q8H [facility] Rx#:[id number] Zosyn 3.375 gm In Dextrose 5% 50 50 in Water 50 ml @ 100 mls/hr IV Q8H [facility] Rx#:[id number] Oral 100 IV - Manual Only 400 Output: Gastric Drainage 125 200 Right Nare 125 200 Drainage 45 Right Abdomen AZAM Drain 45 Drainage 110 80 50 Right Abdomen AZAM Drain 110 80 50 Urine Catheter Amount 1610 425 Other: Urine Appearance Clear Uretheral (Ram) Clear Clear Urine Color Pale Uretheral (Ram) Pale Bright Yellow Urine Odor Normal Uretheral (Ram) Normal Exam: she looks comfortable, non toxic, NAD Respiratory Additional comments: normal respiratory effort without distress Cardiovascular Cardiovascular exam: Present RRR GI/Abdominal Additional comments: belly seems soft and non distended, dressings dry, drain serosang Extremities Exam Additional comments: well perfused A/P Assessment and plan (1) SBO (small bowel obstruction): Status: Acute Plan POD #1 Segmental SB Resection for Obstruction Seems clinically well this am D/C Ram OOB Start Hep SQ for DVT Prophylaxis Re check labs in AM Time Spent With Patient Time: Total time spent is greater than 50% in coordination of care (as documented) at patient's floor/unit and/or counseling patient:
[2022-03-02] MEDS: HYDROmorphone 0.5 MG/0.5 ML SYRINGE IV PRN ×5 (00:03→21:05)
[2022-03-02] MEDS: DEXTROSE 5%-LR 1,000 ML IV SCH ×4 (00:04→20:23)
[2022-03-02] MEDS: ACETAMINOPHEN 500 MG/50 ML BAG IV SCH (04:58)
[2022-03-02] MEDS: 0.9 % SODIUM CHLORIDE 10 ML SYRINGE IV SCH ×3 (04:59→21:05)
[2022-03-02 06:32] LABS: Hematocrit 29.6 % (34.1-44.9); Hemoglobin 9.1 g/dL (11.2-15.7); Mean Cell Volume 89.2 fL (80.0-100.0); Mean Corpuscular HGB Conc 30.7 g/dL (31.0-36.0); Mean Platelet Volume 10.1 fL (7.4-10.4); Platelet Count 292 K/mcL (140-440); RBC 3.32 M/mcL (3.59-5.38); Red Cell Distribution Width 14.8 % (11.5-14.5); WBC 5.4 K/mcL (4.5-11.0)
[2022-03-02 07:02] LABS: Blood Urea Nitrogen 8 mg/dL (8-23); Carbon Dioxide 24 mmol/L (22-30); Chloride 106 mmol/L (96-108); Glomerular Filtration Rate 59; Glucose 99 mg/dL (70-105)
[2022-03-02] MEDS: PANTOPRAZOLE 40 MG VIAL IV SCH (07:48)
--- NOTE | 2022-03-02 12:07 | General Surgery Progress Note ---
SUBJECTIVE Subjective Patient information: Note initiated : 03/02/22 at 12:02 pm Service Date, if different from initiated Date: [] Patient: Mary Ellen Jimenez 62 y/o F admitted on 02/27/22 for abdominal pain. Chief Complaint: [POD #2 Lap Assisted SB Resection] Denies pain this am, starting to pass gas, NGT bother Constitutional Vitals: Vital Signs Temp Pulse Resp BP Pulse Ox 98.2 F 60 16 159/80 94 03/02/22 07:07 03/02/22 07:07 03/02/22 07:07 03/02/22 07:07 03/02/22 07:07 Period Temp Pulse Resp BP Sys/Plummer Pulse Ox Last 24 Hr 97.7 F-99.5 F 56-63 16-16 136-174/74-88 94-97 Intake and Output 03/01/22 03/02/22 03/02/22 21:59 05:59 13:59 Intake Total 50 1150 1000 Output Total 825 765 950 Balance -775 385 50 Weight 128 lb Intake & Output: Intake & Output 03/01/22 03/02/22 03/02/22 21:59 05:59 13:59 Intake Total 50 1150 1000 Output Total 825 765 950 Balance -775 385 50 Weight 128 lb Intake: IV 50 1100 1000 Dextrose 5%-Lactated Ringers 1, 1000 1000 000 ml @ 100 mls/hr IV .Q10H [facility] Rx#:[id number] Oral 50 Output: Gastric Drainage 300 100 Right Nare 300 100 Drainage 70 65 50 Right Abdomen AZAM Drain 70 65 50 Urine Catheter Amount 455 Void Amount 600 900 Other: Urine Appearance Clear Clear Urine Color Pale Bright Yellow Exam: she looks well, NAD, non toxic Respiratory Additional comments: normal respiratory effort Cardiovascular Cardiovascular exam: Present RRR GI/Abdominal Additional comments: belly soft, remains minimally distended, drain scant serous, NGT functional, dressings dry and intact Extremities Exam Additional comments: well perfused A/P Assessment and plan (1) SBO (small bowel obstruction): Assessment and plan: POD #2 Lap Assisted Segmental SB Resection for Obstruction Doing Well Start Hep SQ (H/H stable) Continue NGT and increase ambulation Status: Acute Time Spent With Patient Time: Total time spent is greater than 50% in coordination of care (as documented) at patient's floor/unit and/or counseling patient:
[2022-03-02] MEDS: HEPARIN 5,000 UNIT/ML VIAL SQ SCH ×2 (12:25→21:05)
[2022-03-02] MEDS ORDERED: LOSARTAN 25 MG TABLET PO SCH (22:00)
[2022-03-02] MEDS: LOSARTAN 25 MG TABLET PO SCH (23:08)
[2022-03-03] MEDS: HYDROmorphone 0.5 MG/0.5 ML SYRINGE IV PRN ×6 (01:31→20:23)
[2022-03-03] MEDS: 0.9 % SODIUM CHLORIDE 10 ML SYRINGE IV SCH ×3 (05:15→22:12)
[2022-03-03] MEDS: DEXTROSE 5%-LR 1,000 ML IV SCH (06:29)
[2022-03-03 06:33] LABS: Hematocrit 29.3 % (34.1-44.9); Hemoglobin 9.2 g/dL (11.2-15.7); Mean Corpuscular HGB Conc 31.4 g/dL (31.0-36.0); Mean Platelet Volume 10.1 fL (7.4-10.4); Platelet Count 297 K/mcL (140-440); RBC 3.33 M/mcL (3.59-5.38); Red Cell Distribution Width 14.4 % (11.5-14.5); WBC 5.7 K/mcL (4.5-11.0)
--- NOTE | 2022-03-03 07:02 | EKG ---
[facility] Test Date: 2022-02-28 Pat Name: Mary Ellen Jimenez Department: [facility] Room: 133 Gender: Female [place]: : 1960 Requested By: Nick Coats Order Number: [id number] Reading MD: Babar Jolly Measurements Intervals [place] Rate: 75 P: 20 [place]: 141 QRS: -13 QRSD: 151 T: -6 QT: 395 QTc: 442 Interpretive Statements Sinus rhythm Right bundle branch block Electronically Signed On 03-03-2022 7:02:42 PDT by Babar Jolly /[id number]
[2022-03-03 07:04] LABS: Blood Urea Nitrogen 4 mg/dL (8-23); Calcium 8.1 mg/dL (8.6-10.4); Carbon Dioxide 28 mmol/L (22-30); Chloride 102 mmol/L (96-108); Glomerular Filtration Rate 68; Glucose 109 mg/dL (70-105)
[2022-03-03] MEDS ORDERED: DEXTROSE 5%-LR W/20MEQ KCL 1,000 ML IV SCH (07:45)
[2022-03-03] MEDS: PANTOPRAZOLE 40 MG VIAL IV SCH (07:58)
[2022-03-03] MEDS: HEPARIN 5,000 UNIT/ML VIAL SQ SCH ×2 (07:58→20:22)
[2022-03-03] MEDS: DEXTROSE 5%-1/2NS W/20MEQ KCL 1,000 ML IV SCH ×2 (07:58→18:00)
--- NOTE | 2022-03-03 08:02 | Operative Note ---
DATE OF OPERATION: 02/28/2022 PREOPERATIVE DIAGNOSIS: Recurrent and/or persistent small-bowel obstruction. POSTOPERATIVE DIAGNOSES: 1. Recurrent and/or persistent small-bowel obstruction. 2. Demonstrable area of stricture in the mid small bowel consistent with etiology of recurrent and/or persistent partial small-bowel obstruction. PROCEDURE: 1. Diagnostic laparoscopy. 2. Laparoscopic-assisted segmental mid small bowel resection of two areas of stricture with primary anastomosis. SURGEON: Nick Coats M.D. ANESTHESIA: General. PREOP MEDICATIONS: Zosyn 3.375 g IV. INDICATIONS: The patient is a 62-year-old female who presented to the Emergency Room the day prior to this for the third time with persistent symptoms of small bowel obstruction after two prior admissions over the past several weeks. These were presumed to be adhesion-related SBO secondary to prior C-sections. Both times that she was hospitalized, she seemed to resolve clinically very quickly with bowel rest, NG tube decompression and even underwent a small bowel follow through that demonstrated fairly prompt transition across the small bowel into the colon, but she would recurrently develop abdominal pain, discomfort and have the radiographic picture of a high-grade partial mid SBO come back up and so after her third presentation to the Emergency Room we recommended surgery. The risks, benefits, potential complications, and alternative treatment options were discussed at length with her and her family over the course of several visits. Issues discussed included potential need for conversion to open, potential need for bowel resection, potential for anastomotic leak, infection, bleeding, injury to surrounding structures, and other concerns, the intent to start out laparoscopically, but the potential need for conversion to open procedure, the possibility we would not resolve this and unexpected finding could be encountered and other issues. She gave full informed consent and wished to proceed. DESCRIPTION OF PROCEDURE: The patient was taken to the operating room and placed supine on the OR table, placed under general anesthesia and intubated. Bilateral SCDs were applied and pressure sensitive areas were carefully padded and NG tube was placed. A Lopez catheter was also placed. Her arms were tucked at her side and after she was positioned comfortably on the table by the entire OR team, her abdomen was widely prepped and draped in sterile fashion. Procedure began with access to the peritoneal cavity utilizing a 0-degree, 5-mm scope through a 5 mm trocar in the right upper abdomen. This was obtained without difficulty. Once we had obtained peritoneal placement, pneumoperitoneum was obtained with high-flow CO2 insufflation. We then examined the area of access with the 0-degree scope to make sure there was no evidence of injury; none was seen. We briefly surveyed the contents of the upper abdomen and distended small bowel was seen. We placed the two remaining additional trocars. This included a 5 mm left mid abdominal trocar and then an additional 5 mm left upper abdomen trocar, to which the camera was resited. These were all placed under direct vision. That left us with the camera port and two working ports to work through. We then changed out the 0-degree scope for a 30-degree scope and then utilizing gentle blunt dissection with endo Kittners, we were gradually able to identify the transition point after following the decompressed small bowel back to the point of transition in the left mid abdomen just above the uterus and this appeared to be an area of induration in the small bowel with thickening and narrowing there that could be externally observed and then an additional similar area roughly 3-4 cm downstream in the same area of the bowel that again appeared to be roughly 2-3 cm area of intensely abnormal appearing bowel with thickening and induration and narrowing with an overall appearance that appeared consistent with possible Crohn's disease. The remainder of the bowel looked normal and then we ran the small bowel from that point down to the ileocecal valve to make sure there was no evidence of additional areas of note, none were seen. At this point, we elected to go ahead and convert to a laparoscopic-assisted approach. I then grasped the involved segment of bowel with an atraumatic grasper and made a small counter incision in the vertical midline through the prior vertical midline scar that she had here in a periumbilical fashion, roughly 3-4 cm in maximal dimension, dissected down and then once entering the peritoneal cavity used the grasper instruments to deliver the bowel up to this incision and then we were able to easily deliver the rest of the bowel up into the anterior abdominal wall and allow our insufflation to resolve itself. At this point, we then examined this segment of bowel and again, indeed it was two palpable areas of severe induration, narrowing and thickening, most consistent with a potential Crohn's disease or some area of carcinoid tumor or some other abnormality, but regardless, it was clear these needed to be resected and that this did represent the transition point between the obstructed and nonobstructed bowel. To that end we circumferentially dissected the bowel proximally and distally to the two areas and then transected the bowel with sequential firings of the JAILENE 55 stapler. The mesentery was then taken down with the LigaSure device and the bowel was fully liberated in its entirety and sent to pathology for permanent inspection. Next, we brought the somewhat dilated proximal and decompressed distal limbs of bowel alongside one another, in a [id number] tension-free manner. I sharply created enterotomies on the antimesenteric surfaces of the respective staple lines, dilated these up and then introduced the separate arms of the stapler into the bowel lumen and then brought them to get together to create a [id number] functional end-to-end stapled anastomosis without difficulty making sure there was no intervened mesentery caught up in the anastomosis with the staple line. We then fired the stapler to create the anastomosis. It was then removed and I elevated the common channel enterotomy and closed it with clamps and then fired the stapler again across the base of this to achieve closure. The staple line was then carefully inspected. The corners were oversewn with lemberted 3-0 silk sutures. I placed an additional suture at the crotch of the staple line to take any tension off this area here as well. It was palpated and found to be widely patent and allowed to reduce back into the peritoneal cavity after closure of the mesenteric defect with interrupted 3-0 silk sutures. Also, of note, prior to closing the common channel enterotomy, I inspected the staple line internally to make sure there was no active bleeding or hemorrhage, none was seen. The bowel was carefully reduced back into the intraperitoneal position. We then closed the fascia with interrupted 0 Ethibond sutures, all of which were placed one after the next under direct vision and then tied these down sequentially to close this defect very securely. We then irrigated out the subcutaneous tissues and closed the skin with bravo and then reestablished her pneumoperitoneum and went back in a laparoscopic position to inspect the anastomosis, confirmed that it appeared to be laying in an anatomically correct position and that there was no evidence of bleeding, hemorrhage or other issue. The overlying fascial closure was examined as well and found to be intact and without issue. Next, we irrigated out gently and made sure there was no active bleeding or hemorrhage. None were seen. All the remaining trocar sites were removed under direct vision to make sure there was no active hemorrhage. None was noted and the skin was closed with bravo. Sterile dressings were applied. Please note, prior to this, I elected to bring a drain into the field and positioned it alongside the anastomosis. It was brought in through the left midabdominal trocar site under direct vision and positioned alongside the anastomosis and secured in place with a 3-0 silk suture. Once this was completed, the patient was awakened, extubated, and transferred to PACU in satisfactory condition with no apparent complications or issues. Sponge and instrument counts were correct. Findings were discussed above. ESTIMATED BLOOD LOSS: Roughly 5-10 mL. DRAINS: A single 19-Hebrew round Donal. BW:helen Job ID: [id number] Doc ID: [id number] Nick Coats M.D. MTDD
--- NOTE | 2022-03-03 10:39 | General Surgery Progress Note ---
SUBJECTIVE Subjective Patient information: Note initiated : 03/03/22 at 10:36 am Service Date, if different from initiated Date: [] Patient: Mary Ellen Jimenez 62 y/o F admitted on 02/27/22 for abdominal pain. Chief Complaint: [POD #3] No gas today, some yesterday, minimal pain Constitutional Vitals: Vital Signs Temp Pulse Resp BP Pulse Ox 98.5 F 65 20 175/84 94 03/03/22 07:40 03/03/22 07:40 03/03/22 07:40 03/03/22 07:40 03/03/22 07:40 Period Temp Pulse Resp BP Sys/Plummer Pulse Ox Last 24 Hr 97.7 F-98.5 F 64-84 16-20 138-197/70-94 94-96 Intake and Output 03/02/22 03/03/22 03/03/22 21:59 05:59 13:59 Intake Total 1000 50 1000 Output Total 1705 1075 500 Balance -705 -1025 500 Weight 126 lb 4 oz Intake & Output: Intake & Output 03/02/22 03/03/22 03/03/22 21:59 05:59 13:59 Intake Total 1000 50 1000 Output Total 1705 1075 500 Balance -705 -1025 500 Weight 126 lb 4 oz Intake: IV 1000 1000 Dextrose 5%-Lactated Ringers 1, 1000 1000 000 ml @ 100 mls/hr IV .Q10H [facility] Rx#:[id number] Oral 50 Output: Gastric Drainage 400 250 Right Nare 400 250 Drainage 30 25 Right Abdomen AZAM Drain 30 25 Void Amount 1275 800 500 Other: Urine Appearance Clear Urine Color Straw Exam: she looks well, non toxic, NAD, fully conversant Respiratory Additional comments: normal respiratory effort without distress Cardiovascular Cardiovascular exam: Present RRR GI/Abdominal Additional comments: soft and non tender, has some distension today, dressings dry, drain is scant Extremities Exam Additional comments: well perfused A/P Assessment and plan (1) SBO (small bowel obstruction): Assessment and plan: POD #3 Segmental SB Resection Probable ileus Replace K+ Start suppositories and Continue NGT for now Increase activity Status: Acute Time Spent With Patient Time: Total time spent is greater than 50% in coordination of care (as documented) at patient's floor/unit and/or counseling patient:
[2022-03-03] MEDS: BISACODYL 10 MG SUPP.RECT PR SCH (11:40)
[2022-03-03] MEDS ORDERED: CLOBETASOL PROP OINT 0.05% TUBE 15GM TOPICAL ONE (13:31)
--- NOTE | 2022-03-03 17:41 | XRay Report ---
CLINICAL INFORMATION: progress on bowel obstruction COMPARISON: None. FINDINGS: The stool gas pattern is unremarkable. NG tube overlies the gastric body. There is no free air, soft tissue mass, organomegaly or pathologic calcification. Surgical drain overlies the false pelvis. IMPRESSION: Normal abdomen. NG tube overlying the gastric body. No evidence of bowel obstruction Interpreted and Authenticated by: Jaleel Ruelas 03/03/22
[2022-03-03] MEDS: LOSARTAN 25 MG TABLET PO SCH (20:23)
[2022-03-04] MEDS: HYDROmorphone 0.5 MG/0.5 ML SYRINGE IV PRN ×5 (01:01→23:23)
[2022-03-04] MEDS: DEXTROSE 5%-1/2NS W/20MEQ KCL 1,000 ML IV SCH ×3 (03:48→23:54)
[2022-03-04] MEDS: 0.9 % SODIUM CHLORIDE 10 ML SYRINGE IV SCH ×3 (04:43→21:25)
[2022-03-04 06:30] LABS: Hemoglobin 9.1 g/dL (11.2-15.7); Mean Cell Volume 86.7 fL (80.0-100.0); Mean Corpuscular HGB Conc 32.5 g/dL (31.0-36.0); Platelet Count 309 K/mcL (140-440); RBC 3.23 M/mcL (3.59-5.38); Red Cell Distribution Width 14.1 % (11.5-14.5); WBC 5.6 K/mcL (4.5-11.0)
[2022-03-04 07:53] LABS: Blood Urea Nitrogen 4 mg/dL (8-23); Carbon Dioxide 25 mmol/L (22-30); Chloride 103 mmol/L (96-108); Glomerular Filtration Rate 68; Glucose 106 mg/dL (70-105)
[2022-03-04] MEDS: HEPARIN 5,000 UNIT/ML VIAL SQ SCH ×2 (08:30→21:25)
[2022-03-04] MEDS: PANTOPRAZOLE 40 MG VIAL IV SCH (08:30)
[2022-03-04] MEDS: BISACODYL 10 MG SUPP.RECT PR SCH (08:30)
[2022-03-04] MEDS ORDERED: CALCIUM GLUCONATE 4.65 MEQ in DEXTROSE 5% IN WATER 50 ML IV SCH (10:00)
--- NOTE | 2022-03-04 13:46 | General Surgery Progress Note ---
SUBJECTIVE Subjective Patient information: Note initiated : 03/04/22 at 1:43 pm Service Date, if different from initiated Date: [] Patient: Mary Ellen Jimenez 62 y/o F admitted on 02/27/22 for abdominal pain. Chief Complaint: [POD #5 Lap Assisted Segmental SB Resection] Feels well this am, has now been passing some gas with small stools. Minimal to no pain. Ambulating better per patient. Constitutional Vitals: Vital Signs Temp Pulse Resp BP Pulse Ox 98.5 F 64 20 186/90 96 03/04/22 12:00 03/04/22 12:00 03/04/22 12:00 03/04/22 12:00 03/04/22 12:00 Period Temp Pulse Resp BP Sys/Plummer Pulse Ox Last 24 Hr 98.5 F-99.2 F 64-71 14-20 174-186/79-95 95-96 Intake and Output 03/03/22 03/04/22 03/04/22 21:59 05:59 13:59 Intake Total 1000 980 60 Output Total 390 1180 700 Balance 610 -200 -640 Weight 120 lb 6.4 oz Intake & Output: Intake & Output 03/03/22 03/04/22 03/04/22 21:59 05:59 13:59 Intake Total 1000 980 60 Output Total 390 1180 700 Balance 610 -200 -640 Weight 120 lb 6.4 oz Intake: IV 1000 980 Dextrose 5%-1/2Ns W/20Meq KCl 1 1000 980 ,000 ml @ 100 mls/hr IV .Q10H [facility] Rx#:[id number] Dextrose 5%-Lactated Ringers 1, 0 000 ml @ 100 mls/hr IV .Q10H [facility] Rx#:[id number] Oral 60 Tube Feeding 0 Output: Gastric Drainage 550 Right Nare 550 Drainage 65 30 Right Abdomen AZAM Drain 65 30 Void Amount 325 600 700 # of times incontinent of urine 0 Other: Urine Appearance Clear Urine Color Straw Straw Straw Urine Odor Normal Normal Normal # Voids 1 0 # Bowel Movements 0 # of times incontinent of 0 Bowels Exam: She loosk well, NAD Respiratory Additional comments: Normal respiratory effort without distress Cardiovascular Cardiovascular exam: Present RRR GI/Abdominal Additional comments: soft and non tender, non distended, no mass, drain scant and benign Extremities Exam Additional comments: well perfused A/P Assessment and plan (1) SBO (small bowel obstruction): Assessment and plan: POD #5 Lap Assisted Segmental Small Bowel Resection for SBO Doing Well with evidence ileus is resolving Clamp NGT Start Clears Re check plain films in AM Increase Activity level as tolerated Status: Acute Time Spent With Patient Time: Total time spent is greater than 50% in coordination of care (as documented) at patient's floor/unit and/or counseling patient:
[2022-03-04] MEDS: METOPROLOL TARTRATE 5 MG/5 ML VIAL IV PRN (18:01)
[2022-03-04] MEDS: CLOBETASOL PROP OINT 0.05% TUBE 15GM TOPICAL PRN (19:11)
[2022-03-04] MEDS: LOSARTAN 25 MG TABLET PO SCH (21:25)
[2022-03-05] MEDS: HYDROmorphone 0.5 MG/0.5 ML SYRINGE IV PRN ×6 (03:10→22:47)
[2022-03-05] MEDS: 0.9 % SODIUM CHLORIDE 10 ML SYRINGE IV SCH ×4 (05:18→20:48)
[2022-03-05 06:15] LABS: Hematocrit 31.7 % (34.1-44.9); Mean Cell Volume 86.6 fL (80.0-100.0); Mean Corpuscular HGB Conc 31.5 g/dL (31.0-36.0); Mean Platelet Volume 9.7 fL (7.4-10.4); Platelet Count 336 K/mcL (140-440); RBC 3.66 M/mcL (3.59-5.38); WBC 6.9 K/mcL (4.5-11.0)
[2022-03-05 06:37] LABS: Blood Urea Nitrogen 4 mg/dL (8-23); Calcium 8.6 mg/dL (8.6-10.4); Carbon Dioxide 28 mmol/L (22-30); Chloride 103 mmol/L (96-108); Glomerular Filtration Rate 53; Glucose 108 mg/dL (70-105)
[2022-03-05] MEDS: PANTOPRAZOLE 40 MG VIAL IV SCH (07:51)
[2022-03-05] MEDS: CLOBETASOL PROP OINT 0.05% TUBE 15GM TOPICAL PRN ×2 (08:22→20:49)
--- NOTE | 2022-03-05 09:08 | XRay Report ---
CLINICAL INFORMATION: History of bowel obstruction 03/03/2022 COMPARISON: None. FINDINGS: The stool gas pattern is unremarkable. NG tube overlies the gastric body. There is no free air, soft tissue mass, organomegaly or pathologic calcification. Surgical drain overlies the false pelvis. IMPRESSION: Normal abdomen. NG tube overlying the gastric body. No evidence of bowel obstruction Interpreted and Authenticated by: Jaleel Ruelas 03/05/22
--- NOTE | 2022-03-05 09:32 | General Surgery Progress Note ---
SUBJECTIVE Subjective Patient information: Note initiated : 03/05/22 at 9:27 am Service Date, if different from initiated Date: [] Patient: Mary Ellen Jimenez 62 y/o F admitted on 02/27/22 for abdominal pain. Chief Complaint: [POD #5 Lap Assisted Segmental SB Resection] Doing well today, ambulating nicely, passing some gas now and no N/V with NGT clamped Constitutional Vitals: Vital Signs Temp Pulse Resp BP Pulse Ox 98.3 F 61 20 154/86 97 03/05/22 08:00 03/05/22 08:00 03/05/22 08:00 03/05/22 08:00 03/05/22 08:00 Period Temp Pulse Resp BP Sys/Plummer Pulse Ox Last 24 Hr 98.3 F-98.7 F 57-68 16-20 154-205/80-91 92-98 Intake and Output 03/04/22 03/05/22 03/05/22 21:59 05:59 13:59 Intake Total 1100 Output Total 800 1005 Balance -800 95 Weight 122 lb Intake & Output: Intake & Output 03/04/22 03/05/22 03/05/22 21:59 05:59 13:59 Intake Total 1100 Output Total 800 1005 Balance -800 95 Weight 122 lb Intake: IV 1000 Dextrose 5%-1/2Ns W/20Meq KCl 1 1000 ,000 ml @ 100 mls/hr IV .Q10H [facility] Rx#:[id number] Oral 100 Output: Gastric Drainage 200 Right Nare 200 Drainage 50 55 Right Abdomen AZAM Drain 50 55 Void Amount 550 950 Other: Urine Appearance Clear Urine Color Pale Urine Odor Normal Exam: looks well, non toxic, NAD Respiratory Additional comments: non labored Cardiovascular Cardiovascular exam: Present RRR GI/Abdominal Additional comments: soft and non tender, minimal residual distension, drain benign A/P Assessment and plan (1) SBO (small bowel obstruction): Status: Acute Plan POD #5 Lap Assisted Segmental SB Resection Doing Well Start Clears - leave NGT in clamped until apparent that she's tolerating Decrease IVFs Time Spent With Patient Time: Total time spent is greater than 50% in coordination of care (as documented) at patient's floor/unit and/or counseling patient:
[2022-03-05] MEDS: BISACODYL 10 MG SUPP.RECT PR SCH (11:11)
[2022-03-05] MEDS: HEPARIN 5,000 UNIT/ML VIAL SQ SCH ×2 (11:11→20:48)
[2022-03-05] MEDS: DEXTROSE 5%-1/2NS W/20MEQ KCL 1,000 ML IV SCH ×2 (11:12→22:49)
[2022-03-05] MEDS: METOPROLOL TARTRATE 5 MG/5 ML VIAL IV PRN (16:42)
[2022-03-05] MEDS: LOSARTAN 25 MG TABLET PO SCH (20:47)
[2022-03-06] MEDS: DEXTROSE 5%-1/2NS W/20MEQ KCL 1,000 ML IV SCH ×3 (00:56→17:46)
[2022-03-06] MEDS: 0.9 % SODIUM CHLORIDE 10 ML SYRINGE IV SCH ×4 (01:39→20:04)
[2022-03-06] MEDS: HYDROmorphone 0.5 MG/0.5 ML SYRINGE IV PRN ×5 (01:39→19:06)
[2022-03-06 06:47] LABS: Hematocrit 27.7 % (34.1-44.9); Hemoglobin 8.8 g/dL (11.2-15.7); Mean Cell Volume 85.8 fL (80.0-100.0); Mean Corpuscular HGB Conc 31.8 g/dL (31.0-36.0); Mean Platelet Volume 10.1 fL (7.4-10.4); Platelet Count 294 K/mcL (140-440); RBC 3.23 M/mcL (3.59-5.38); WBC 5.6 K/mcL (4.5-11.0)
[2022-03-06 07:08] LABS: Blood Urea Nitrogen 6 mg/dL (8-23); Calcium 8.4 mg/dL (8.6-10.4); Carbon Dioxide 25 mmol/L (22-30); Chloride 106 mmol/L (96-108); Glomerular Filtration Rate 53; Glucose 111 mg/dL (70-105)
--- NOTE | 2022-03-06 08:15 | General Surgery Progress Note ---
SUBJECTIVE Subjective Patient information: Note initiated : 03/06/22 at 8:12 am Service Date, if different from initiated Date: [] Patient: Mary Ellen Jimenez 62 y/o F admitted on 02/27/22 for abdominal pain. Chief Complaint: [POD #6 Lap Assisted Segmental SB Resection] Has been doing well on clears, passing large amounts of gas through the night and no nausea or vomiting with NGT clamped. Constitutional Vitals: Vital Signs Temp Pulse Resp BP Pulse Ox 96.7 F L 58 L 16 173/86 96 03/06/22 07:54 03/06/22 07:54 03/06/22 07:54 03/06/22 07:54 03/06/22 07:54 Period Temp Pulse Resp BP Sys/Plummer Pulse Ox Last 24 Hr 96.7 F-98.9 F 56-95 16-20 158-196/74-98 95-96 Intake and Output 03/05/22 03/06/22 03/06/22 21:59 05:59 13:59 Intake Total 500 1500 Output Total 1245 465 Balance -745 1035 Weight 123 lb 119 lb 1 oz Intake & Output: Intake & Output 03/05/22 03/06/22 03/06/22 21:59 05:59 13:59 Intake Total 500 1500 Output Total 1245 465 Balance -745 1035 Weight 123 lb 119 lb 1 oz Intake: IV 1000 Dextrose 5%-1/2Ns W/20Meq KCl 1 1000 ,000 ml @ 75 mls/hr IV .[id number] [facility] Rx#:[id number] Oral 100 500 IV - Manual Only 400 Output: Gastric Drainage 200 Right Nare 200 Drainage 65 65 Right Abdomen AZAM Drain 65 65 Urine Catheter Amount 30 Void Amount 850 400 # of times incontinent of urine 0 Estimated Blood Loss 100 Other: Urine Appearance Clear Urine Color Pale Urine Odor Normal Stool Size Small Stool Color Brown Stool Consistency Formed Liquid # Voids 0 # Bowel Movements 1 # of times incontinent of 0 Bowels Exam: Looks well, non toxic Respiratory Additional comments: normal effort without distress Cardiovascular Cardiovascular exam: Present RRR GI/Abdominal Additional comments: soft and non tender, minimal distension, drain benign Extremities Exam Additional comments: well perfused A/P Assessment and plan (1) SBO (small bowel obstruction): Status: Acute Plan POD #6 Lap Assisted Segmental SB Resection D/C NGT Advance to full liquids Possibly home tomorrow if doing well Time Spent With Patient Time: Total time spent is greater than 50% in coordination of care (as documented) at patient's floor/unit and/or counseling patient:
[2022-03-06] MEDS: PANTOPRAZOLE 40 MG VIAL IV SCH (10:17)
[2022-03-06] MEDS: METOPROLOL TARTRATE 5 MG/5 ML VIAL IV PRN (10:17)
[2022-03-06] MEDS: BISACODYL 10 MG SUPP.RECT PR SCH (10:18)
[2022-03-06] MEDS: HEPARIN 5,000 UNIT/ML VIAL SQ SCH ×2 (10:18→20:03)
[2022-03-06] MEDS: CLOBETASOL PROP OINT 0.05% TUBE 15GM TOPICAL PRN (11:38)
[2022-03-06] MEDS: HYDROcodone/APAP 5/325MG TABLET PO PRN ×2 (17:48→22:55)
[2022-03-06] MEDS: LOSARTAN 25 MG TABLET PO SCH (20:03)
[2022-03-06] MEDS ORDERED: DEXTROSE 5%-1/2NS W/20MEQ KCL 1,000 ML IV SCH (20:45)
[2022-03-07] MEDS: HYDROcodone/APAP 5/325MG TABLET PO PRN ×3 (05:14→18:38)
[2022-03-07] MEDS: 0.9 % SODIUM CHLORIDE 10 ML SYRINGE IV SCH ×2 (05:15→16:06)
[2022-03-07] MEDS: PANTOPRAZOLE 40 MG VIAL IV SCH (07:08)
[2022-03-07] MEDS: HEPARIN 5,000 UNIT/ML VIAL SQ SCH (08:19)
[2022-03-07] MEDS: BISACODYL 10 MG SUPP.RECT PR SCH (08:20)
[2022-03-07] MEDS: HYDROmorphone 0.5 MG/0.5 ML SYRINGE IV PRN ×2 (09:02→16:07)
--- NOTE | 2022-03-07 10:22 | General Surgery Progress Note ---
SUBJECTIVE Subjective Patient information: Note initiated : 03/07/22 at 10:18 am Service Date, if different from initiated Date: [] Patient: Mary Ellen Jimenez 62 y/o F admitted on 02/27/22 for abdominal pain. Chief Complaint: [POD #7 Lap Assisted Segmental SB Resection] Doing well, tolerating diet, having good bowel function, minimal pain. Constitutional Vitals: Vital Signs Temp Pulse Resp BP Pulse Ox 98 F 61 16 157/86 96 03/07/22 07:07 03/07/22 04:00 03/07/22 07:07 03/07/22 07:07 03/07/22 07:07 Period Temp Pulse Resp BP Sys/Plummer Pulse Ox Last 24 Hr 98 F-99.0 F 58-65 16-20 155-195/77-92 94-96 Intake and Output 03/06/22 03/07/22 03/07/22 21:59 05:59 13:59 Intake Total 1001 694 Output Total 640 650 Balance 361 44 Weight 123 lb 12.8 oz Intake & Output: Intake & Output 03/06/22 03/07/22 03/07/22 21:59 05:59 13:59 Intake Total 1001 694 Output Total 640 650 Balance 361 44 Weight 123 lb 12.8 oz Intake: IV 1001 294 Dextrose 5%-1/2Ns W/20Meq KCl 1 1001 294 ,000 ml @ 75 mls/hr IV .[id number] [facility] Rx#:[id number] Oral 400 Output: Drainage 90 Right Abdomen AZAM Drain 90 Void Amount 550 650 Other: Meal Dinner Percent of Meal Consumed 50% Urine Appearance Clear Urine Color Bright Yellow Urine Odor Normal Stool Size Small Stool Color Brown Stool Consistency Formed # Voids 1 Exam: Looks well, non toxic, NAD Respiratory Additional comments: Normal respiratory effort without distress Cardiovascular Cardiovascular exam: Present RRR GI/Abdominal Additional comments: soft and non tender, midline incisions all look good, drain is serous and benign Extremities Exam Additional comments: well perfused A/P Assessment and plan (1) SBO (small bowel obstruction): Assessment and plan: Post Lap Assisted Segmental SB Resection Doing Well D/C JPD Increase activity Likely home later today or in AM Status: Acute Time Spent With Patient Time: Total time spent is greater than 50% in coordination of care (as documented) at patient's floor/unit and/or counseling patient:
[2022-03-07] MEDS ORDERED: DEXTROSE 5%-1/2NS W/20MEQ KCL 1,000 ML IV SCH (12:15)
--- NOTE | 2022-03-13 14:23 | Discharge Summary ---
DATE OF ADMISSION: 02/27/2022 DATE OF DISCHARGE: 03/07/2022 ADMITTING DIAGNOSIS: Recurrent and/or persistent small bowel obstruction. DISCHARGE DIAGNOSIS: Recurrent and/or persistent small bowel obstruction. PROCEDURE: Laparoscopic-assisted segmental small bowel resection on 02/28/2022. ADMITTING PHYSICIAN: Nick Coats MD INDICATIONS: The patient is a 62-year-old female who had previously admitted to the hospital twice in the past weeks for recurrent issues with bowel obstruction that would resolve with conservative management and then would seem to recur not long after discharge. She underwent multiple imaging studies including CT scans and others, none of which suggested any definitive etiology for the obstruction, but she did have a prior lower abdominal surgery in the form of C-sections, so there was some suspicion that she might have an adhesion-based issue. HOSPITAL COURSE: Patient represented to the Emergency Room on 02/27/2022 for the third time with this issue, so at that time we admitted her and recommended that she undergo exploration the following day. This was performed on 02/28/2022 and essentially involved the lap-assisted segmental small bowel resection of the areas of concern and the areas of obstruction, which were identified intraoperatively--please see that dictated operative report for further details. She did well following the surgery and had fairly prompt return of bowel function. Her NG tube was discontinued after she had begun to pass gas and stool on a regular basis, and she was felt ready for discharge by 03/07/2022. COMPLICATIONS: None apparent. DISPOSITION: Home with instructions for clinic followup with Dr. Coats. BW:helen Job ID: [id number] Doc ID: [id number] Nick Coats M.D.
== END 2022-03-07 19:30 | disposition home or self-care (01) | DRG 330 ==
LOC: ED 15:15 → MEDSUR 22:58
PROVIDERS: ADMIT Surgery Surgical Critical Care; ATTEND Surgery Surgical Critical Care

== ENCOUNTER 2022-03-16 21:10 | Inpatient (IN) ==
[2022-03-16] MEDS ORDERED: IOPAMIDOL 100 ML BOTTLE IV ONE (21:11)
[2022-03-16] MEDS ORDERED: morphine 4 MG/ML VIAL IV ONE (22:07)
[2022-03-16] MEDS ORDERED: ONDANSETRON 4 MG/2 ML VIAL IV ONE (22:07)
[2022-03-16] MEDS ORDERED: 0.9 % SODIUM CHLORIDE 1,000 ML IV ONE (22:07)
--- NOTE | 2022-03-16 22:10 | Emergency Department Note ---
Abdominal Pain HPI General Chief Complaint: Abdominal Pain Stated Complaint: Abdominal Pain Time Seen by Provider: 03/16/22 21:28 Source: patient Mode of arrival: ambulatory Limitations: no limitations History of Present Illness HPI Narrative: Narrative: 62-year-old female history of some chronic GERD abdominal pain nausea vomiting recurrent small bowel obstructions who underwent a laparoscopy and subsequent partial small bowel resectionOn March 03 due to the small bowel obstructions with Dr. Coats. Presents the ED with a flareup of her pain and a single episode of nonbloody nausea vomiting. She has been doing reasonably well postoperatively she is having more regular bowel movements last bowel movement was just today and is reportedly normal nonbloody no diarrhea. She still has some generalized migratory pain in her abdomen since the surgery but the pain flared up a mild bit tonight and family is concerned because she threw up 1 time however she says this is because it occurred right after she took her hydrocodone which causes her to be nauseous. Related Data Home Medications Medication Instructions Recorded Confirmed losartan 25 mg tablet 2 tab PO HS 02/09/22 03/12/22 tacrolimus 0.1 % topical ointment 1 applic TOPICAL BID 02/09/22 03/12/22 clobetasol 0.05 % topical ointment 1 applic TOPICAL BID 02/15/22 03/12/22 potassium chloride 20 mEq 20 meq PO BIDCC 02/15/22 03/12/22 tablet,extended release ibuprofen [Ibuprofen IB] 400 mg PO Q6HP PRN 02/26/22 03/12/22 levothyroxine 75 mcg tablet 75 mcg PO ACB 02/27/22 03/12/22 Previous Rx's Medication Instructions Recorded docusate sodium 100 mg capsule 100 mg PO QDAY #7 cap 03/07/22 (Dulcolax Stool Softener (docusate)) sulfamethoxazole 800 1 tab PO BID #14 tab 03/07/22 mg-trimethoprim 160 mg tablet (Bactrim DS) glycerin (adult) (Fleet Glycerin 1 supp MD QDAY PRN #25 ea 03/12/22 (Adult)) hydrocodone 5 mg-acetaminophen 325 1 tab PO Q8H PRN #90 tab 03/12/22 mg tablet Allergies Allergy/AdvReac Type Severity Reaction Status Date / Time No Known Drug Allergies Allergy Verified 03/16/22 21:13 Review of Systems ROS ROS Narrative: Narrative: All systems ED: reviewed and negative except as stated. PFSH Narrative Patient History Narrative: Narrative: Medical/Surgical/Family History All Active Problems (Updated 03/17/22 @ 04:40 by Kamran Dior DO) Acute postoperative abdominal pain (Acute) Acute anemia (Acute) Constipation (Acute) Status post small bowel resection (Acute) Adenocarcinoma (Acute) Partial small bowel obstruction (Acute) Partial small bowel obstruction (Acute) SBO (small bowel obstruction) (Acute) Anemia (Acute) Scalp cyst (Acute) RUQ pain (Acute) Lesion of skin of scalp (Acute) GERD (gastroesophageal reflux disease) (Chronic) Hypothyroidism (Chronic) Diabetes mellitus type 2 in nonobese (Chronic) Shoulder pain, right (Chronic) Varicose veins of both lower extremities (Chronic) Hypopotassemia (Chronic) RACHANA positive (Chronic) 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) Joint pain (Chronic) Hair loss (Chronic) Carpal tunnel syndrome (Chronic) Diverticulosis of colon (without mention of hemorrhage) (Chronic) Hemorrhoids (Chronic) Dermatitis (Chronic) Onychomycosis of toenail (Chronic) Medical History RACHANA positive Anemia Carpal tunnel syndrome Dermatitis Diverticulosis of colon (without mention of hemorrhage) Hair loss Hemorrhoids Hypertrophy of bone of left shoulder Hypopotassemia Joint pain Onychomycosis of toenail Shoulder pain, right Varicose veins of both lower extremities Surgical History History of (~1985) History of colonoscopy (~2017) History of resection of small bowel 02/28/2022- 1.Diagnostic laparoscopy 2. Laparoscopic-assisted segmental mid small bowel resection of two areas of stricture with primary anastomosis Family History Other No pertinent family history Social History Smoking Status: Never smoker Exam Narrative Narrative: Narrative: Constitutional: normally developed, no acute distress . Head: Normocephalic, atraumatic, Eyes: No Icterus, bit pale appearing ENT: Moist mucus membranes, Neck: Supple, Cardiac: Normal heart sounds, palpable radial pulses, no peripheral edema Pulmonary: Normal respiratory effort. Breath sounds clear, no wheeze, rhonchi, rales, Gastrointestinal: Abdomen soft, nondistended. She has bravo along her midline incision site as well as sporadic laparoscopic port sites. They all seem to be healing well no signs of infection or dehiscence. The abdomen has generalized tenderness throughout no obvious focality other than around her bravo seems to be a bit more tender, Musculoskeletal: No gross deformities, well perfused Skin: warm, dry Neuro: Alert and oriented. General Limitations: no limitations Course Vital Signs Vital signs: Vital Signs Temperature 37.1 C 03/16/22 21:10 Pulse Rate 77 03/16/22 21:10 Respiratory Rate 18 03/16/22 21:10 Blood Pressure 147/82 03/16/22 21:10 Pulse Oximetry (%) 98 03/16/22 21:10 Temperature 37.1 C 03/16/22 21:10 Pulse Rate 68 03/17/22 06:00 Respiratory Rate 16 03/17/22 04:18 Blood Pressure 125/78 03/17/22 06:00 Pulse Oximetry (%) 97 03/17/22 06:00 [facility] Narrative Medical decision making narrative: Narrative: Patient with a flareup of her postoperative pain she has a history of some recurrent small bowel obstructions she had laparoscopic and then what sounds like a partial small bowel resection on March [address] Coats secondary to this. Has mostly been doing well postoperatively but did have a flareup of her generalized abdominal pain this evening with a single episode of nonbloody nonbilious nausea vomiting. But states regular bowel movements. Work-up is initiated we will check laboratory studies and treat symptomatically CBC no leukocytosis but she is found to be acutely anemic hemoglobin 6.9 down 2 g from 06 March and down from 10.0 on the . She reports no obvious melena or bleeding or history of GI bleed. But given this will cross and transfuse her for 1 unit, did provide written consent Additionally did do a Hemoccult test with female nursing delimer this was indeed Hemoccult positive but grossly negative. Give her a dose of Protonix And given this finding will now obtain a CT of the abdomen for any acute intra- abdominal findings or signs of bleeding/hematomas given her recent surgery+anemia Electrolytes show trace elevation in creatinine 1.[address] of her abdomen per [facility]: still has some dilated fluid-filled loop right abdominal small bowel possible postop segmental ileus or enteritis or recurrent obstruction. (Given the fact she just had a reported regular bowel movement this evening I think obstruction is less likely) Also comment on distended gallbladder with some possible surrounding edema no stones (given no focal right upper quadrant pain and otherwise normal labs, I think acute luzma unlikely, and US not available at this time) Enlarged unchanged lymph node mesenteric And some increasing moderate right-sided proximal hydronephrosis at the UPJ but no stone etc. increased from previous, possibly infectious versus neoplasm and because Reevaluation patient feeling better vitals are stable she is slowly receiving her blood transfusion have put a page out to her surgeon, awaiting a callback. [id number]: Spoke with Dr. Coats, discussed case/diagnostics etc, he does accept patient to his service, requests we do transfuse a second unit PRBC, I will also cross her to have a third additional unit available if necessary. Does not require protonix drip or NGT at this time. Lab Data Result diagrams: 03/16/22 21:53 03/16/22 21:53 Labs: Lab Results 03/16/22 03/16/22 Range/Units 21:53 21:53 WBC 7.0 (4.5-11.0) K/mcL RBC 2.44 L (3.59-5.38) M/mcL Hgb 6.9 L* (11.2-15.7) g/dL Hct 21.8 L (34.1-44.9) % MCV 89.3 (80.0-100.0) fL MCH 28.3 (26.0-34.0) pg MCHC 31.7 (31.0-36.0) g/dL RDW 15.8 H (11.5-14.5) % Plt Count 348 (140-440) K/mcL MPV 10.6 H (7.4-10.4) fL Neut % (Auto) 76.6 (38.0-78.0) % Lymph % (Auto) 12.7 L (15.5-49.0) % [place] % (Auto) 7.4 (1.0-12.0) % Eos % (Auto) 2.4 (0.0-7.0) % Baso % (Auto) 0.9 (0.0-2.0) % Lymph # (Auto) 0.89 L (1.50-4.80) K/mcL [place] # (Auto) 0.52 (0.10-0.90) K/mcL Eos # (Auto) 0.17 (0.00-0.70) K/mcL Baso # (Auto) 0.06 (0.00-0.30) K/mcL Absolute Neutrophils 5.35 (1.80-8.00) K/mcL Sodium 138 (133-145) mmol/L Potassium 3.7 (3.3-5.1) mmol/L Chloride 103 (96-108) mmol/L Carbon Dioxide 22 (22-30) mmol/L Anion Gap 13.0 (8.0-16.0) BUN 29 H (8-23) mg/dL Creatinine 1.4 H (0.6-1.1) mg/dL GFR Calculation 40 Glucose 194 H (70-105) mg/dL Calcium 8.9 (8.6-10.4) mg/dL Total Bilirubin 0.3 (0.1-1.0) mg/dL AST 18 (<32) U/L ALT 12 (<40) U/L Alkaline Phosphatase 80 (39-117) U/L Total Protein 6.8 (5.9-8.4) gm/dL Albumin 3.9 (3.2-5.2) gm/dL Globulin 2.9 (2.2-3.7) gm/dL Albumin/Globulin Ratio 1.3 (1.0-2.3) Lipase 107 H (7-60) U/L Discharge Plan Patient/Caregiver Discharge Instructions Pt seen by RACK MAKER/PA only: No Clinical Impression: Acute postoperative abdominal pain, Acute anemia Patient Disposition: Xfer As Inpt ([facility]) Condition: Serious Follow up with: Oskar Beatty ARNP [Primary Care Provider] - Prescriptions: No Action ibuprofen [Ibuprofen IB] 400 mg PO Q6HP PRN (Reason: Pain) 0RF hydrocodone-acetaminophen 5-325 mg tablet 1 tab PO Q8H PRN (Reason: pain) Qty: 90 0RF glycerin (adult) [Fleet Glycerin (Adult)] Suppository 1 supp MD QDAY PRN (Reason: constipation) Qty: 25 2RF losartan 25 mg tablet 2 tab PO HS 0RF tacrolimus 0.1 % Ointment 1 applic TOPICAL BID 0RF potassium chloride 20 mEq Tablet Extended Release 20 meq PO BIDCC 0RF clobetasol 0.05 % ointment 1 applic topical BID 0RF levothyroxine 75 mcg tablet 75 mcg PO ACB 0RF sulfamethoxazole-trimethoprim [Bactrim DS] 800-160 mg tablet 1 tab PO BID Qty: 14 0RF docusate sodium [Dulcolax Stool Softener (dss)] 100 mg capsule 100 mg PO QDAY Qty: 7 0RF
[2022-03-16 22:41] LABS: Basophils # (Auto) 0.06 K/mcL (0.00-0.30); Basophils % (Auto) 0.9 % (0.0-2.0); Eosinophils # (Auto) 0.17 K/mcL (0.00-0.70); Eosinophils % (Auto) 2.4 % (0.0-7.0); Hematocrit 21.8 % (34.1-44.9); Hemoglobin 6.9 g/dL (11.2-15.7); Lymphocytes # (Auto) 0.89 K/mcL (1.50-4.80); Lymphocytes % (Auto) 12.7 % (15.5-49.0); Mean Cell Volume 89.3 fL (80.0-100.0); Mean Corpuscular HGB Conc 31.7 g/dL (31.0-36.0); Mean Platelet Volume 10.6 fL (7.4-10.4); Monocytes # (Auto) 0.52 K/mcL (0.10-0.90); Monocytes % (Auto) 7.4 % (1.0-12.0); Neutrophils % (Auto) 76.6 % (38.0-78.0); Platelet Count 348 K/mcL (140-440); RBC 2.44 M/mcL (3.59-5.38); Red Cell Distribution Width 15.8 % (11.5-14.5)
[2022-03-16 22:53] LABS: ALT/SGPT 12 U/L (<40); AST/SGOT 18 U/L (<32); Albumin 3.9 gm/dL (3.2-5.2); Albumin/Globulin Ratio 1.3 (1.0-2.3); Alkaline Phosphatase 80 U/L (39-117); Bilirubin,Total 0.3 mg/dL (0.1-1.0); Blood Urea Nitrogen 29 mg/dL (8-23); Calcium 8.9 mg/dL (8.6-10.4); Carbon Dioxide 22 mmol/L (22-30); Chloride 103 mmol/L (96-108); Globulin 2.9 gm/dL (2.2-3.7); Glomerular Filtration Rate 40; Glucose 194 mg/dL (70-105)
[2022-03-16] MEDS ORDERED: 0.9 % SODIUM CHLORIDE 250 ML IV SCH (23:00)
[2022-03-17] MEDS ORDERED: PANTOPRAZOLE 40 MG VIAL IV ONE ×2 (04:34→06:12)
--- NOTE | 2022-03-17 05:57 | Cat Scan Report ---
INDICATION: recent SBO surgery, now abdo pain, acute anemia COMPARISON: Previous examinations dated 02/27/2022, 02/15/2022 TECHNIQUE: Axial images were obtained through the abdomen and pelvis. Sagittally and coronally reformatted images. 70 mL Isovue 370 injected intravenously. Oral contrast material was not administered FINDINGS: The examination was initially interpreted by [facility] Lung bases:Negative. No pulmonary parenchymal nodule. No pleural fluid or pericardial fluid Liver:7 mm benign cyst in the upper right lobe. 16 mm low-density lesion in the caudate. Findings are considered benign and stable Low-density abnormality near the fissure for the ligamentum venosum is consistent with focal fat. Gallbladder, bilary:Gallbladder is mildly distended. No calcified gallstones. No gallbladder wall thickening or pericholecystic fluid. No dilated bile ducts Spleen:No splenomegaly. Normal enhancement of splenic and portal veins. Pancreas:No pancreatic mass. No peripancreatic abnormality Adrenal glands:Negative Kidneys,ureters,bladder:Enlarged right renal pelvis and mild right calyceal dilatation. Appearance is unchanged. Left kidney is normal. Proximal right ureter at the ureteropelvic junction appears thickened. There is no obstructing stone. No hydroureter. No ureteral calculus. No bladder stone. No detectable bladder mass. Gastrointestinal:No detectable colonic mass. There is no diverticulitis. Previous surgery with small bowel anastomosis. No obstruction at the anastomosis. Jejunostomy is not distended. There is a prominent loop of ileum which is distended to 3 cm in cross-sectional diameter and fluid filled. There is a focal area of jejunal narrowing in the right side of the abdomen. This appears persistent since previous examination. This is best identified on axial image 97 and coronal image 46. There is also a transition point in the right upper quadrant, axial image 71, coronal image 38. This causes segmental small bowel dilatation although it is not considered a true closed loop. There is no bowel wall thickening. No perforation. Findings are probably secondary to adhesions. Negative stomach and duodenum. No focal abnormality. There is an enhancing perigastric mass which is probably an enlarged lymph node. This measures 19 mm. This is identified on image #53. This is unchanged since 02/27/2022 and 02/15/2022. There are several smaller enhancing nodes adjacent to this. Appendix: The appendix is negative Vascular:Negative abdominal aorta. Superior mesenteric artery and celiac trunk are normal. Normal opacification of the inferior mesenteric artery Lymphatic:There is no retroperitoneal, para-aortic adenopathy. No pelvic or inguinal adenopathy. As described above there is an enhancing perigastric mass which may be an enlarged lymph node. Mesentery, peritoneum: No free intraperitoneal fluid. No mesenteric or retroperitoneal mass. No intra-abdominal abscess. Reproductive:Uterus is anteflexed. No adnexal mass Musculoskeletal:No lumbar compression fractures. Sacrum and pelvis are negative. No hip fracture. No abdominal wall or inguinal hernia there are skin bravo in an anterior midline abdominal incision IMPRESSION: 1. Segmental ileal obstruction. Ileal dilatation measures approximately 3 cm. 2. Enhancing 2 cm mass adjacent to the stomach. Several smaller masses are adjacent to this. These may be pathologic lymph nodes. Appearance is unchanged since 02/15/2022. Malignancy is possible 3. Benign hepatic cysts 4. Dilated right renal pelvis and mild calyceal dilatation. There is ureteral wall thickening at the ureteropelvic junction The exam was performed using radiation dose optimization techniques including, but not limited to, automated exposure control, adjustment of the mA and/or kV according to patient size and use of iterative reconstruction technique. Interpreted and Authenticated by: Jaleel Martini 03/17/22
[2022-03-17] MEDS ORDERED: LACTATED RINGERS 1,000 ML IV SCH (06:15)
[2022-03-17] MEDS ORDERED: 0.9 % SODIUM CHLORIDE 250 ML IV SCH (06:15)
[2022-03-17 08:05] LABS: Appearance,Urine HAZY (Clear); Bilirubin,Urine Negative (Negative); Color,Urine YELLOW; Culture Indicated,Urine No; Glucose,Urine (UA) Negative (Negative); Ketones,Urine 20 mg/dL (Negative); Leukocyte Esterase,Urine Negative /uL (Negative); Mucus,Urine FEW /hpf; Nitrate,Urine Negative (Negative); Protein,Urine Negative (Negative); Specific Gravity,Urine 1.035 (1.000-1.035); Urine Blood Negative (Negative); Urine Hyaline Cast 6 /lph (0-2); Urine RBC 1 /hpf (0-3); Urine Squamous Epithelial Cell < 1 /hpf (0-4); Urine WBC 1 /hpf (0-4); Urobilinogen,Urine Negative
[2022-03-17] MEDS: DEXTROSE 5%-LR 1,000 ML IV SCH (10:07)
--- NOTE | 2022-03-17 14:10 | General Surgery Consult Note ---
HPI Data of Consult Patient: known to practice within the last 3 years Consult date: 03/17/22 Requesting physician: Kamran Dior Primary Care Provider: GILDA Irwin Consult Narrative Chief complaint: Anemia and Abdominal Pain Reason for consult: Anemia and Abdominal Pain History of present illness: Mary Ellen is seen in consultation today out of the ER as a well known patient of ours who had recurrent bouts of presumed adhesion related SBO over the course of several months to the point that she underwent Diagnostic Laparoscopy followed by Lap Assisted SB resection several weeks ago. She recovered well from that surgery and was discharged home without issue having mininal pain and normal bowel function. Since that time, her pathology results on the resected segment of involved Small Bowel had unexpectedly revealed what has been interpreted as 2 hematogenous deposits of metastatic adenocarcinoma. Further work up and discussion was underway when she presented to the ER today with an epidsoe of emesis, some pain and just not feeling well. She was found to be quite anemic with a Hbg of 6.9 and also found to have some evidence of possible partial or segmental SBO as well as concern for a perigastric reinaldo mass. She clinically otherwise has looked non toxic and benign. We agreed to admission for a period of close observation, transfusion and further work up. cc:: CC: Nick Coats MD Constitutional Additional comments: fatigue, mild weight loss EENT Additional comments: no changes Additional comments: no changes Additional comments: no changes Cardiovascular Additional comments: no chest pain or abnormal heart rate Respiratory Additional comments: denies any SOB or cough Gastrointestinal Additional comments: see HPI Genitourinary Additional comments: no hematuria Integumentary Additional comments: no skin change Neurological Additional comments: no issues PFSH PFSH All Active Problems (Updated 03/17/22 @ 04:40 by Kamran Dior, DO) Acute postoperative abdominal pain (Acute) Acute anemia (Acute) Constipation (Acute) Status post small bowel resection (Acute) Adenocarcinoma (Acute) Partial small bowel obstruction (Acute) Partial small bowel obstruction (Acute) SBO (small bowel obstruction) (Acute) Anemia (Acute) Scalp cyst (Acute) RUQ pain (Acute) Lesion of skin of scalp (Acute) GERD (gastroesophageal reflux disease) (Chronic) Hypothyroidism (Chronic) Diabetes mellitus type 2 in nonobese (Chronic) Shoulder pain, right (Chronic) Varicose veins of both lower extremities (Chronic) Hypopotassemia (Chronic) RACHANA positive (Chronic) 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) Joint pain (Chronic) Hair loss (Chronic) Carpal tunnel syndrome (Chronic) Diverticulosis of colon (without mention of hemorrhage) (Chronic) Hemorrhoids (Chronic) Dermatitis (Chronic) Onychomycosis of toenail (Chronic) Medical History RACHANA positive Anemia Carpal tunnel syndrome Dermatitis Diverticulosis of colon (without mention of hemorrhage) Hair loss Hemorrhoids Hypertrophy of bone of left shoulder Hypopotassemia Joint pain Onychomycosis of toenail Shoulder pain, right Varicose veins of both lower extremities Surgical History History of (~1985) History of colonoscopy (~2017) History of resection of small bowel 02/28/2022- 1.Diagnostic laparoscopy 2. Laparoscopic-assisted segmental mid small bowel resection of two areas of stricture with primary anastomosis Family History Other No pertinent family history MEDS/ALLERGIES Home Medications and Allergies Home Medications Medication Instructions Recorded Confirmed Type losartan 25 mg tablet 2 tab PO HS 02/09/22 03/17/22 History potassium chloride 20 mEq 20 meq PO BIDCC 02/15/22 03/17/22 History tablet,extended release ibuprofen [Ibuprofen IB] 400 mg PO Q6HP PRN 02/26/22 03/17/22 History levothyroxine 75 mcg tablet 75 mcg PO ACB 02/27/22 03/17/22 History docusate sodium 100 mg capsule 100 mg PO DAILYP PRN 03/17/22 03/17/22 History (Dulcolax Stool Softener (docusate)) Allergies Allergy/AdvReac Type Severity Reaction Status Date / Time No Known Drug Allergies Allergy Verified 03/16/22 21:13 Physical Examination Vital Signs Vital signs: Temp Pulse Resp BP Pulse Ox 99.1 F H 76 20 144/72 99 03/17/22 12:00 03/17/22 12:00 03/17/22 12:00 03/17/22 12:00 03/17/22 12:00 General physical appearance General physical exam: well developed, well nourished and no distress Eyes Eye exam: negative icteric ENT ENT exam: normal pinna and normal nares; negative nasal discharge Head Head exam IM: Present atraumatic, normal inspection and normocephalic Neck Neck exam: no masses and no lymphadenopathy Cardiovascular Cardiovascular exam IM: Present normal rate and rhythm Respiratory Respiratory exam: normal respiratory effort Abdomen Abdomen: Present soft, non tender and surgical scars (well healed surgical scars ) Integumentary Integumentary: Present other (normal appearing intact skin ) Neurologic Neurologic: Present other (seems awake and alert ) Results Labs Result diagrams: 03/16/22 21:53 03/16/22 21:53 Labs: Abnormal lab results 03/16/22 03/16/22 03/17/22 Range/Units 21:53 21:53 07:30 RBC 2.44 L (3.59-5.38) M/mcL Hgb 6.9 L* (11.2-15.7) g/dL Hct 21.8 L (34.1-44.9) % RDW 15.8 H (11.5-14.5) % MPV 10.6 H (7.4-10.4) fL Lymph % (Auto) 12.7 L (15.5-49.0) % Lymph # (Auto) 0.89 L (1.50-4.80) K/mcL BUN 29 H (8-23) mg/dL Creatinine 1.4 H (0.6-1.1) mg/dL Glucose 194 H (70-105) mg/dL Lipase 107 H (7-60) U/L Urine Appearance Hazy A (Clear) Urine Ketones 20 A (Negative) mg/dL Hyaline Casts 6 H (0-2) /lph Urine Mucus Few A (None) /hpf Diabetes panel 03/16/22 Range/Units 21:53 Sodium 138 (133-145) mmol/L Potassium 3.7 (3.3-5.1) mmol/L Chloride 103 (96-108) mmol/L Carbon Dioxide 22 (22-30) mmol/L BUN 29 H (8-23) mg/dL Creatinine 1.4 H (0.6-1.1) mg/dL Glucose 194 H (70-105) mg/dL Calcium 8.9 (8.6-10.4) mg/dL AST 18 (<32) U/L ALT 12 (<40) U/L Alkaline Phosphatase 80 (39-117) U/L Total Protein 6.8 (5.9-8.4) gm/dL Albumin 3.9 (3.2-5.2) gm/dL Calcium panel 03/16/22 Range/Units 21:53 Calcium 8.9 (8.6-10.4) mg/dL Albumin 3.9 (3.2-5.2) gm/dL Pituitary panel 03/16/22 Range/Units 21:53 Sodium 138 (133-145) mmol/L Potassium 3.7 (3.3-5.1) mmol/L Chloride 103 (96-108) mmol/L Carbon Dioxide 22 (22-30) mmol/L BUN 29 H (8-23) mg/dL Creatinine 1.4 H (0.6-1.1) mg/dL Glucose 194 H (70-105) mg/dL Calcium 8.9 (8.6-10.4) mg/dL Adrenal panel 03/16/22 Range/Units 21:53 Sodium 138 (133-145) mmol/L Potassium 3.7 (3.3-5.1) mmol/L Chloride 103 (96-108) mmol/L Carbon Dioxide 22 (22-30) mmol/L BUN 29 H (8-23) mg/dL Creatinine 1.4 H (0.6-1.1) mg/dL Glucose 194 H (70-105) mg/dL Calcium 8.9 (8.6-10.4) mg/dL Total Bilirubin 0.3 (0.1-1.0) mg/dL AST 18 (<32) U/L ALT 12 (<40) U/L Alkaline Phosphatase 80 (39-117) U/L Total Protein 6.8 (5.9-8.4) gm/dL Albumin 3.9 (3.2-5.2) gm/dL All other labs normal. A/P Assessment and plan (1) Acute anemia: Assessment and plan: Metastatic Malignancy of Unknown Primary Anemia Possible Partial SBO Lengthy discussion today with her and family regarding the pathologic findings and the need for additional work up to clarify the situation. For now, we will go ahead and transfuse 2 units PRBCs and continue PPIs for possible UGI source of occult bleeding and will re check H/H later today to make sure she has had an appropriate bump GI Consult for EGD and possible Colonoscopy to check for possible source of primary and to also rule out a Gastric/Duodenal Ulcer given all her recent hospitilzations and marginal oral intake. Ideally tumor markers as well as a PET CT scan would be checked as well but that may not be possible during this admission as she would need to have the PET CT over at [facility]. Will also likely recommend SBFT to check for any degree of ongoing obstruction given that she continues to have bowel function Status: Acute Time Spent With Patient Time: Total time spent is greater than 50% in coordination of care (as documented) at patient's floor/unit and/or counseling patient:
[2022-03-17] MEDS: HYDROmorphone 0.5 MG/0.5 ML SYRINGE IV PRN (14:18)
[2022-03-17] MEDS: 0.9 % SODIUM CHLORIDE 10 ML SYRINGE IV SCH ×2 (14:18→21:21)
[2022-03-17] MEDS: diphenhydrAMINE 50 MG/ML VIAL IV PRN (14:18)
[2022-03-17] MEDS ORDERED: KETAMINE 50 MG/ML ML IV PRN (19:42)
--- NOTE | 2022-03-17 19:42 | Internal Medicine Consult Note ---
HPI Data of Consult Patient: new to practice Consult date: 03/17/22 Requesting physician: Nick Coats Primary Care Provider: GILDA Irwin Consult Narrative Chief complaint: Small bowel obstruction 2/2 metastatic adenoCA with unknown primary Reason for consult: Small bowel obstruction 2/2 metastatic adenoCA with unknown primary History of present illness: Mrs. Jimenez is a 62 year old female who was admitted for recurrent small bowel obstruction. Her two sons are at the bedside. She is a bit of a vague historian, but in reviewing her chart, she has complained of postprandial abdominal pain since August with intermittent vomiting. In February, she developed worsening postprandial pain, vomiting and 20lbs weight loss and presented to the ED where she was was found to have small bowel obstruction. Initial episodes responded to nasogastric decompression, but on her third admission, exploratory laparoscopy was performed with jejunal resection. Pathology showed metastatic adenocarcinoma with unknown primary. CT showed segmental ileal obstructio and an enhancing 2cm mass adjacent to stomach with several smaller masses adjacent to the stomach. She has been anemic with hgb dropping from 10-6.8 and she has received 1 u PRBC. She denies any melena, hematochezia, or hematemesis. She underwent colonoscopy 7 years ago and was told this was normal with a 10 year recall. She has not previously undergone EGD. She stopped using NSAIDs since they exacerbated her symptoms. She is scheduled for outpatient oncology consultation at [facility] on 03/21/22. She has no prior history of malignancy and is a lifelong non smoker. cc:: CC: Nick Coats MD Gastrointestinal Gastrointestinal: Present as per HPI PFSH PFSH All Active Problems (Updated 03/17/22 @ 04:40 by Kamran Dior DO) Acute postoperative abdominal pain (Acute) Acute anemia (Acute) Constipation (Acute) Status post small bowel resection (Acute) Adenocarcinoma (Acute) Partial small bowel obstruction (Acute) Partial small bowel obstruction (Acute) SBO (small bowel obstruction) (Acute) Anemia (Acute) Scalp cyst (Acute) RUQ pain (Acute) Lesion of skin of scalp (Acute) GERD (gastroesophageal reflux disease) (Chronic) Hypothyroidism (Chronic) Diabetes mellitus type 2 in nonobese (Chronic) Shoulder pain, right (Chronic) Varicose veins of both lower extremities (Chronic) Hypopotassemia (Chronic) RACHANA positive (Chronic) 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) Joint pain (Chronic) Hair loss (Chronic) Carpal tunnel syndrome (Chronic) Diverticulosis of colon (without mention of hemorrhage) (Chronic) Hemorrhoids (Chronic) Dermatitis (Chronic) Onychomycosis of toenail (Chronic) Medical History RACHANA positive Anemia Carpal tunnel syndrome Dermatitis Diverticulosis of colon (without mention of hemorrhage) Hair loss Hemorrhoids Hypertrophy of bone of left shoulder Hypopotassemia Joint pain Onychomycosis of toenail Shoulder pain, right Varicose veins of both lower extremities Surgical History History of (~1985) History of colonoscopy (~2017) History of resection of small bowel 02/28/2022- 1.Diagnostic laparoscopy 2. Laparoscopic-assisted segmental mid small bowel resection of two areas of stricture with primary anastomosis Family History Other No pertinent family history MEDS/ALLERGIES Home Medications and Allergies Home Medications Medication Instructions Recorded Confirmed Type losartan 25 mg tablet 2 tab PO HS 02/09/22 03/17/22 History potassium chloride 20 mEq 20 meq PO BIDCC 02/15/22 03/17/22 History tablet,extended release ibuprofen [Ibuprofen IB] 400 mg PO Q6HP PRN 02/26/22 03/17/22 History levothyroxine 75 mcg tablet 75 mcg PO ACB 02/27/22 03/17/22 History docusate sodium 100 mg capsule 100 mg PO DAILYP PRN 03/17/22 03/17/22 History (Dulcolax Stool Softener (docusate)) Allergies Allergy/AdvReac Type Severity Reaction Status Date / Time No Known Drug Allergies Allergy Verified 03/16/22 21:13 EXAM Constitutional Vitals: Temp Pulse Resp BP Pulse Ox 98.9 F 66 18 130/62 98 03/17/22 16:00 03/17/22 16:00 03/17/22 16:00 03/17/22 16:00 03/17/22 16:00 General appearance: no acute distress and thin Head Head exam: Present atraumatic, normal inspection and normocephalic Eye Eye exam: Present normal appearance ENT ENT exam: Present mucous membranes moist and normal exam Neck Neck exam: Present normal inspection Respiratory Respiratory exam: Absent accessory muscle use Neurological Exam Neurological exam: Present alert and oriented X3 Psychiatric Psychiatric exam: Present anxious and normal affect DATA Data Completed and Pending Labs: Labs from last 24 hours 03/17/22 03/16/22 03/16/22 07:30 21:53 21:53 WBC 7.0 RBC 2.44 L Hgb 6.9 L* Hct 21.8 L MCV 89.3 MCH 28.3 MCHC 31.7 RDW 15.8 H Plt Count 348 MPV 10.6 H Neut % (Auto) 76.6 Lymph % (Auto) 12.7 L Williams % (Auto) 7.4 Eos % (Auto) 2.4 Baso % (Auto) 0.9 Lymph # (Auto) 0.89 L Williams # (Auto) 0.52 Eos # (Auto) 0.17 Baso # (Auto) 0.06 Absolute Neutrophils 5.35 Sodium 138 Potassium 3.7 Chloride 103 Carbon Dioxide 22 Anion Gap 13.0 BUN 29 H Creatinine 1.4 H GFR Calculation 40 Glucose 194 H Calcium 8.9 Total Bilirubin 0.3 AST 18 ALT 12 Alkaline Phosphatase 80 Total Protein 6.8 Albumin 3.9 Globulin 2.9 Albumin/Globulin Ratio 1.3 Lipase 107 H Urine Color Yellow Urine Appearance Hazy A Urine pH 5.0 Ur Specific [place] 1.035 Urine Protein Negative Urine Glucose (UA) Negative Urine Ketones 20 A Urine Occult Blood Negative Urine Nitrate Negative Urine Bilirubin Negative Urine Urobilinogen Negative Ur Leukocyte Esterase Negative Urine RBC 1 Urine WBC 1 Ur Squamous Epith Cells < 1 Urine Bacteria None Hyaline Casts 6 H Urine Mucus Few A Ur Culture Indicated? No A/P Assessment and plan (1) Adenocarcinoma: Assessment and plan: We will evaluate her anemia, abnormal CT, and metastatic small bowel disease with EGD tomorrow and colonoscopy Thursday. Further recommendations will be forthcoming following these endoscopic procedures. She tells me that PET scan is planned as an outpatient. Status: Acute (2) Status post small bowel resection: Status: Acute Time Spent With Patient Time: Total time spent is greater than 50% in coordination of care (as documented) at patient's floor/unit and/or counseling patient: Total time spent with greater than 50% in coordination of care (as documented) at patient's floor/unit and/or counseling patient:: 15 - 24 minutes
[2022-03-17] MEDS ORDERED: MIDAZOLAM 2 MG/2 ML VIAL IV SCH (19:45)
[2022-03-17] MEDS ORDERED: PROPOFOL 200 MG/20 ML VIAL IV SCH (19:45)
[2022-03-17 20:42] LABS: Hematocrit 29.9 % (34.1-44.9); Hemoglobin 9.7 g/dL (11.2-15.7); Mean Cell Volume 86.9 fL (80.0-100.0); Mean Corpuscular HGB Conc 32.4 g/dL (31.0-36.0); Mean Platelet Volume 10.3 fL (7.4-10.4); Platelet Count 326 K/mcL (140-440); RBC 3.44 M/mcL (3.59-5.38); Red Cell Distribution Width 16.2 % (11.5-14.5); WBC 6.1 K/mcL (4.5-11.0)
[2022-03-17] MEDS ORDERED: PANTOPRAZOLE 40 MG VIAL IV SCH (21:00)
[2022-03-17] MEDS: PANTOPRAZOLE 40 MG VIAL IV SCH (21:21)
[2022-03-18] MEDS: DEXTROSE 5%-LR 1,000 ML IV SCH ×4 (00:06→15:52)
[2022-03-18] MEDS: 0.9 % SODIUM CHLORIDE 10 ML SYRINGE IV SCH ×3 (04:46→20:40)
[2022-03-18] MEDS: diphenhydrAMINE 50 MG/ML VIAL IV PRN (04:46)
[2022-03-18] MEDS ORDERED: PROPOFOL 200 MG/20 ML VIAL IV SCH ×2 (06:00→12:30)
[2022-03-18] MEDS ORDERED: KETAMINE 50 MG/ML ML IV PRN ×2 (06:00→12:16)
[2022-03-18] MEDS ORDERED: MIDAZOLAM 2 MG/2 ML VIAL IV SCH ×2 (06:00→12:30)
[2022-03-18 07:55] LABS: Hematocrit 28.1 % (34.1-44.9); Hemoglobin 9.1 g/dL (11.2-15.7); Mean Cell Volume 88.1 fL (80.0-100.0); Mean Corpuscular HGB Conc 32.4 g/dL (31.0-36.0); Platelet Count 287 K/mcL (140-440); RBC 3.19 M/mcL (3.59-5.38); Red Cell Distribution Width 16.4 % (11.5-14.5); WBC 5.4 K/mcL (4.5-11.0)
[2022-03-18 08:05] LABS: Blood Urea Nitrogen 11 mg/dL (8-23); Carbon Dioxide 23 mmol/L (22-30); Chloride 108 mmol/L (96-108); Glomerular Filtration Rate 59; Glucose 117 mg/dL (70-105)
[2022-03-18] MEDS: PANTOPRAZOLE 40 MG VIAL IV SCH ×2 (08:30→20:40)
[2022-03-18] MEDS ORDERED: PROPOFOL 200 MG/20 ML VIAL IV ONE (10:01)
[2022-03-18] MEDS ORDERED: MIDAZOLAM 2 MG/2 ML VIAL ONE (10:01)
--- NOTE | 2022-03-18 12:23 | Internal Med Progress Note ---
SUBJECTIVE Subjective Patient information: Note initiated : 03/18/22 at 12:19 pm Service Date, if different from initiated Date: [] Patient: Mary Ellen Jimenez 62 y/o F admitted on 03/17/22 for Abdominal Pain. Chief Complaint: [recurrent small bowel obstruction secondary to metastases with unknown primary] Principal diagnosis: recurrent small bowel obstruction secondary to metastases Interval history: 62 year old female had EGD today: ulcerated gastric adenocarcinoma. We will plan colonoscopy tomorrow to ensure this is not a met from a colon primary. We will attempt colyte prep until clear. If unable to tolerate PO, nursing will give 2 fleet enemas. Discussed plan with patient. Will attempt to speak to sons. Constitutional Vitals: Vital Signs Temp Pulse Resp BP Pulse Ox 98.6 F 72 15 127/88 100 03/18/22 08:00 03/18/22 10:05 03/18/22 10:05 03/18/22 10:05 03/18/22 10:05 Period Temp Pulse Resp BP Sys/Plummer Pulse Ox Last 24 Hr 98.5 F-98.9 F 66-89 - 118-144/62-88 95-100 Intake and Output 03/17/22 03/18/22 03/18/22 21:59 05:59 13:59 Intake Total 480 1000 Output Total 250 Balance 480 750 Weight 112 lb 9.6 oz 112 lb 9.6 oz Patient Weight 03/19/22 05:59 Weight 112 lb 9.6 oz Intake & Output: Intake & Output 03/17/22 03/18/22 03/18/22 21:59 05:59 13:59 Intake Total 480 1000 Output Total 250 Balance 480 750 Weight 112 lb 9.6 oz 112 lb 9.6 oz Intake: IV 1000 Dextrose 5%-Lactated Ringers 1, 1000 000 ml @ 75 mls/hr IV .[id number] [facility] Rx#:[id number] Oral 480 0 Output: Void Amount 250 Other: Meal Lunch Percent of Meal Consumed 50% Urine Appearance Clear Urine Color Bright Yellow # Voids 1 OBJ DATA Labs CBC & Chem 7: 03/18/22 06:48 03/18/22 06:48 Labs: Abnormal Lab Results 03/18/22 03/18/22 03/17/22 06:48 06:48 19:39 RBC 3.19 L 3.44 L Hgb 9.1 L 9.7 L Hct 28.1 L 29.9 L RDW 16.4 H 16.2 H MPV Lymph % (Auto) Lymph # (Auto) BUN Creatinine Glucose 117 H Calcium 8.0 L Lipase Urine Appearance Urine Ketones Hyaline Casts Urine Mucus 03/17/22 03/16/22 03/16/22 07:30 21:53 21:53 RBC 2.44 L Hgb 6.9 L* Hct 21.8 L RDW 15.8 H MPV 10.6 H Lymph % (Auto) 12.7 L Lymph # (Auto) 0.89 L BUN 29 H Creatinine 1.4 H Glucose 194 H Calcium Lipase 107 H Urine Appearance Hazy A Urine Ketones 20 A Hyaline Casts 6 H Urine Mucus Few A Meds: Medications Diagnostic Test (Pha) (Accu-Chek 1 Each Strip) 1 each FS UD PRN PRN Reason: Hypoglycemia Stop: 03/18/22 16:00 Diphenhydramine HCl (Diphenhydramine 50 Mg/Ml Vial) 25 mg IV Q6HP PRN PRN Reason: Allergic Symptoms Last Admin: 03/18/22 04:46 Dose: 25 mg Documented by: Hydromorphone HCl (Hydromorphone 0.5 Mg/0.5 Ml Syringe) 0.5 mg IV Q1HP PRN; Protocol PRN Reason: Per Pain Protocol Last Admin: 03/17/22 14:18 Dose: 0.5 mg Documented by: Dextrose/Lactated Ringer's (Dextrose 5%-Lactated Ringers) 1,000 mls @ 75 mls/hr IV .[id number] [facility] Last Admin: 03/18/22 02:20 Dose: 75 mls/hr Documented by: Ketamine HCl (Ketamine 50 Mg/Ml Ml) 50 mg IV ONCE PRN PRN Reason: Sedation Stop: 03/18/22 16:00 Midazolam HCl (Midazolam 2 Mg/2 Ml Vial) 0 mg IV ONCE [facility] Stop: 03/18/22 16:00 Last Admin: 03/18/22 09:46 Dose: 2 mg Documented by: Ondansetron HCl (Ondansetron 4 Mg/2 Ml Vial) 4 mg IV Q6HP PRN PRN Reason: Nausea And Vomiting Pantoprazole Sodium (Pantoprazole 40 Mg Vial) 80 mg IV Q12 [facility] Last Admin: 03/18/22 08:30 Dose: 80 mg Documented by: Propofol (Propofol 200 Mg/20 Ml Vial) 0 mg IV UD [facility] Stop: 03/18/22 16:00 Last Admin: 03/18/22 09:46 Dose: 60 mg Documented by: Sodium Chloride (0.9 % Sodium Chloride 10 Ml Syringe) 10 ml IV Q8 [facility] Last Admin: 03/18/22 04:46 Dose: Not Given Documented by: A/P Time Spent With Patient Time: Total time spent is greater than 50% in coordination of care (as documented) at patient's floor/unit and/or counseling patient: QUALITY Stroke Symptom Onset Unknown: No VTE Deep Vein Thrombosis/Pulmonary Embolism Present on Admission: No
[2022-03-18] MEDS ORDERED: PEG 3350/NA SULF,BICARB,CL/KCL 4,000 ML ORAL.SOL PO SCH (12:30)
--- NOTE | 2022-03-18 19:19 | General Surgery Progress Note ---
SUBJECTIVE Subjective Patient information: Note initiated : 03/18/22 at 1:24 pm Service Date, if different from initiated Date: [] Patient: Mary Ellen Jimenez 62 y/o F admitted on 03/17/22 for Abdominal Pain. Chief Complaint: [Abdominal Pain] Seen before and after Upper Endoscopy. Ulcerated Tumor consistent with primary Gastric Cancer found in the stomach on EGD. No active bleeding but very likely source of anemia. Principal diagnosis: recurrent small bowel obstruction secondary to metastases Constitutional Vitals: Vital Signs Temp Pulse Resp BP Pulse Ox 98.6 F 72 15 127/88 100 03/18/22 08:00 03/18/22 10:05 03/18/22 10:05 03/18/22 10:05 03/18/22 10:05 Period Temp Pulse Resp BP Sys/Plummer Pulse Ox Last 24 Hr 98.5 F-98.9 F 66-85 - 118-144/62-88 96-100 Intake and Output 03/17/22 03/18/22 03/18/22 21:59 05:59 13:59 Intake Total 480 1000 Output Total 250 Balance 480 750 Weight 112 lb 9.6 oz 112 lb 9.6 oz Patient Weight 03/19/22 05:59 Weight 112 lb 9.6 oz Intake & Output: Intake & Output 03/17/22 03/18/22 03/18/22 21:59 05:59 13:59 Intake Total 480 1000 Output Total 250 Balance 480 750 Weight 112 lb 9.6 oz 112 lb 9.6 oz Intake: IV 1000 Dextrose 5%-Lactated Ringers 1, 1000 000 ml @ 75 mls/hr IV .[id number] [facility] Rx#:[id number] Oral 480 0 Output: Void Amount 250 Other: Meal Lunch Percent of Meal Consumed 50% Urine Appearance Clear Urine Color Bright Yellow # Voids 1 General appearance: no acute distress Respiratory Respiratory exam: Present normal respiratory exam Cardiovascular Cardiovascular exam: Present RRR GI/Abdominal Additional comments: soft and non distended, non tender, incisions are healing well Extremities Exam Additional comments: well perfused A/P Assessment and plan (1) Adenocarcinoma: Status: Acute Plan Presumed Gastric Cancer with evidence of metastatic disease Agree with Colonoscopy tomorrow to rule out any colonic involvement If no evidence of bowel obstruction post prep and Colonoscopy, should be able to go out on a diet for continued oupatient work up and consultation and I would recommend full liquids for now Medical Oncology Consultation and PET CT [facility] as an outpatient with likely need for Port Placement as well Time Spent With Patient Time: Total time spent is greater than 50% in coordination of care (as documented) at patient's floor/unit and/or counseling patient:
[2022-03-18] MEDS: ONDANSETRON 4 MG/2 ML VIAL IV PRN (20:40)
[2022-03-18] MEDS: HYDROmorphone 0.5 MG/0.5 ML SYRINGE IV PRN (20:40)
[2022-03-19] MEDS ORDERED: FLEETS ADULT ENEMA PR ONE ×4 (01:01→06:00)
[2022-03-19] MEDS: HYDROmorphone 0.5 MG/0.5 ML SYRINGE IV PRN ×3 (02:52→20:34)
[2022-03-19] MEDS: ONDANSETRON 4 MG/2 ML VIAL IV PRN ×2 (02:53→10:05)
[2022-03-19] MEDS: DEXTROSE 5%-LR 1,000 ML IV SCH ×4 (03:29→22:07)
[2022-03-19] MEDS: 0.9 % SODIUM CHLORIDE 10 ML SYRINGE IV SCH ×3 (05:00→20:33)
[2022-03-19 06:49] LABS: Hematocrit 29.3 % (34.1-44.9); Hemoglobin 9.3 g/dL (11.2-15.7); Mean Cell Volume 87.7 fL (80.0-100.0); Mean Corpuscular HGB Conc 31.7 g/dL (31.0-36.0); Mean Platelet Volume 9.9 fL (7.4-10.4); Platelet Count 287 K/mcL (140-440); RBC 3.34 M/mcL (3.59-5.38); Red Cell Distribution Width 16.4 % (11.5-14.5); WBC 5.4 K/mcL (4.5-11.0)
[2022-03-19 07:24] LABS: Blood Urea Nitrogen 7 mg/dL (8-23); Calcium 8.2 mg/dL (8.6-10.4); Carbon Dioxide 24 mmol/L (22-30); Chloride 102 mmol/L (96-108); Glomerular Filtration Rate 68; Glucose 119 mg/dL (70-105)
[2022-03-19] MEDS ORDERED: POTASSIUM CHLORIDE 20 MEQ in DEXTROSE 5% IN WATER 250 ML IV ONE (07:59)
[2022-03-19] MEDS ORDERED: KETAMINE 50 MG/ML ML IV PRN (08:00)
[2022-03-19] MEDS ORDERED: PROPOFOL 200 MG/20 ML VIAL IV SCH (08:00)
[2022-03-19] MEDS ORDERED: MIDAZOLAM 2 MG/2 ML VIAL IV SCH (08:00)
--- NOTE | 2022-03-19 08:20 | EGD Procedure Note ---
EGD Procedure Notes Procedure Information Patient information: Note initiated : 03/19/22 at 8:17 am Patient: Mary Ellen Jimenez 62 y/o F admitted on 03/17/22 for Abdominal Pain. Pre-op diagnosis general: Abdominal pain. Query adenocarcinoma. Post-Op Diagnosis general: Large ulcerated gastric mass. Date of Procedure: 03/18/22 Procedure: EGD with Bx Procedure Narrative: The procedure, alternatives and risks were discussed with the patient and the patient's questions were answered. With endoscopist-administered intravenous sedation, the Olympus video endoscope was introduced into the esophagus. The esophagus, stomach, and duodenum were examined sequentially. A large ulcerated gastric mass was seen along the greater curvature, likely a primary gastric adenocarcinoma or spread from a colon cancer. The scope was withdrawn. Assessment: Large ulcerated gastric mass. Proceed with colonoscopy.
[2022-03-19] MEDS: PANTOPRAZOLE 40 MG VIAL IV SCH ×2 (08:30→20:33)
[2022-03-19] MEDS ORDERED: MAGNESIUM CITRATE 300 ML ORAL.SOL PO ONE (09:05)
[2022-03-19] MEDS ORDERED: MIDAZOLAM 2 MG/2 ML VIAL ONE (15:49)
[2022-03-19] MEDS ORDERED: PROPOFOL 200 MG/20 ML VIAL IV ONE (15:49)
--- NOTE | 2022-03-19 18:34 | Colonoscopy Procedure Note ---
Colonoscopy Procedure Notes Procedure Information Patient information: Note initiated : 03/19/22 at 6:33 pm Patient: Mary Ellen Jimenez 62 y/o F admitted on 03/17/22 for Abdominal Pain. Pre-op diagnosis general: GI adenocarcinoma. Post-op diagnosis general: Normal colonoscopy. Diverticulosis. Date of Procedure: 03/19/22 Procedure: Colonoscopy Procedure narrative: The procedure, alternatives and risks were discussed with the patient and the patient's questions were answered. With endoscopist-administered intravenous sedation, the Olympus colonoscope was introduced into the rectum and advanced to the cecum. Ileocecal valve was identified, intubated, and several centimeters of the terminal ileum were examined and appeared normal. No abnormalities were seen throughout the colon and terminal ileum. There were no colonic polyps. Uncomplicated diverticula were seen. Assessment: Normal colonoscopy. Diverticulosis.
--- NOTE | 2022-03-19 21:53 | General Surgery Progress Note ---
SUBJECTIVE Subjective Patient information: Note initiated : 03/19/22 at 9:45 pm Service Date, if different from initiated Date: [] Patient: Mary Ellen Jimenez 62 y/o F admitted on 03/17/22 for Abdominal Pain. Chief Complaint: [] EGD yesterday and Colonoscopy confirm a Primary Gastric Adeno with final path still pending. Appeared to bowel prep reasonably well but struggling with oral intake. Principal diagnosis: recurrent small bowel obstruction secondary to metastases Constitutional Vitals: Vital Signs Temp Pulse Resp BP Pulse Ox 98.6 F 61 12 162/84 94 03/19/22 18:58 03/19/22 18:58 03/19/22 18:58 03/19/22 18:58 03/19/22 18:58 Period Temp Pulse Resp BP Sys/Plummer Pulse Ox Last 24 Hr 98.4 F-99.0 F 61-73 12-20 106-188/73-104 94-99 Intake and Output 03/19/22 03/19/22 03/19/22 05:59 13:59 21:59 Intake Total 1000 260 809 Output Total 1350 500 Balance -350 260 309 Weight 115 lb 8 oz Patient Weight 03/20/22 05:59 Weight 115 lb 8 oz Intake & Output: Intake & Output 03/19/22 03/19/22 03/19/22 05:59 13:59 21:59 Intake Total 1000 260 809 Output Total 1350 500 Balance -350 260 309 Weight 115 lb 8 oz Intake: IV 1000 260 809 Dextrose 5%-Lactated Ringers 1, 1000 809 000 ml @ 75 mls/hr IV .[id number] [facility] Rx#:[id number] Potassium Chloride 20 Meq In 260 Dextrose 5% in Water 250 ml @ 130 mls/hr IV ONCE ONE Rx#: [id number] Oral 0 Output: Void Amount 400 Urine/Stool Mix 500 500 Stool 450 Other: Stool Size Moderate Large Stool Color Black Brown Stool Consistency Liquid Watery # Bowel Movements 1 General appearance: no acute distress Respiratory Respiratory exam: Present normal respiratory exam Cardiovascular Cardiovascular exam: Present RRR GI/Abdominal Additional comments: remains soft and minimally tender with well healed surgical incisions Extremities Exam Additional comments: well perfused A/P Assessment and plan (1) Adenocarcinoma: Assessment and plan: Metastatic Gastric Adenocarcinoma Needs additional work up and consultation including Medical Oncology Referral, PET CT and likely a Brain MRI as well. Additionally, will need to confirm that she has no ongoing component of bowel obstruction, partial or otherwise, prior to resuming a diet and discharging her to additional outpatient work up. Her oral intake has been poor and likely will continue to be and so it may be reasonable to place a PICC Line for now for TPN potentialy even as an outpatient while her care plans are finalized. Re check plain films in the AM and if any obstructive pattern is present, consider SBFT to assess liquid transit time to the Colon. Continue PPI indefinitely given ulcerated mass in the stomach as likely source of her anemia Status: Acute Time Spent With Patient Time: Total time spent is greater than 50% in coordination of care (as documented) at patient's floor/unit and/or counseling patient:
[2022-03-20] MEDS: diphenhydrAMINE 50 MG/ML VIAL IV PRN (01:02)
[2022-03-20] MEDS: DEXTROSE 5%-LR 1,000 ML IV SCH ×2 (03:52→16:28)
[2022-03-20] MEDS: 0.9 % SODIUM CHLORIDE 10 ML SYRINGE IV SCH ×3 (04:18→20:29)
--- NOTE | 2022-03-20 06:25 | XRay Report ---
INDICATION: eval bowel gas pattern TECHNIQUE: Supine and upright abdomen. COMPARISON: Previous plain film examinations dated 03/05/2022, 03/03/2022. Previous CT scan dated 03/16/2022 FINDINGS:There are skin bravo in a vertical incision. Gas and fecal material within the colon. There is some small bowel gas. Bowel gas pattern is nonspecific without evidence for significant mechanical small bowel obstruction. No pneumoperitoneum. No biliary or portal venous gas. No pneumatosis. IMPRESSION: Nonspecific, bowel gas pattern without evidence for significant obstruction Interpreted and Authenticated by: Jaleel Martini 03/20/22
[2022-03-20 06:36] LABS: Hematocrit 28.3 % (34.1-44.9); Mean Cell Volume 87.6 fL (80.0-100.0); Mean Corpuscular HGB Conc 31.8 g/dL (31.0-36.0); Mean Platelet Volume 10.4 fL (7.4-10.4); Platelet Count 268 K/mcL (140-440); RBC 3.23 M/mcL (3.59-5.38); Red Cell Distribution Width 15.7 % (11.5-14.5); WBC 5.2 K/mcL (4.5-11.0)
[2022-03-20 06:57] LABS: Blood Urea Nitrogen 4 mg/dL (8-23); Calcium 8.2 mg/dL (8.6-10.4); Carbon Dioxide 27 mmol/L (22-30); Chloride 104 mmol/L (96-108); Glomerular Filtration Rate 59; Glucose 102 mg/dL (70-105)
[2022-03-20] MEDS: PANTOPRAZOLE 40 MG VIAL IV SCH ×2 (08:43→20:29)
[2022-03-20] MEDS ORDERED: POTASSIUM CHLORIDE 20 MEQ in DEXTROSE 5% IN WATER 250 ML IV ONE ×2 (09:11→12:00)
--- NOTE | 2022-03-20 10:11 | General Surgery Progress Note ---
SUBJECTIVE Subjective Patient information: Note initiated : 03/20/22 at 10:06 am Service Date, if different from initiated Date: [] Patient: Mary Ellen Jimenez 62 y/o F admitted on 03/17/22 for Abdominal Pain. Chief Complaint: [] Colonoscopy results noted from yesterday. She feels ok this am and slept reasonably well Principal diagnosis: recurrent small bowel obstruction secondary to metastases Constitutional Vitals: Vital Signs Temp Pulse Resp BP Pulse Ox 98.0 F 76 16 158/89 94 03/20/22 08:00 03/20/22 08:00 03/20/22 08:00 03/20/22 08:00 03/20/22 08:00 Period Temp Pulse Resp BP Sys/Plummer Pulse Ox Last 24 Hr 98.0 F-98.9 F 61-76 12-20 106-188/73-104 92-99 Intake and Output 03/19/22 03/20/22 03/20/22 21:59 05:59 13:59 Intake Total 1000 0 Output Total 500 800 Balance 500 -800 Weight 115 lb 8 oz Intake & Output: Intake & Output 03/19/22 03/20/22 03/20/22 21:59 05:59 13:59 Intake Total 1000 0 Output Total 500 800 Balance 500 -800 Weight 115 lb 8 oz Intake: IV 1000 Dextrose 5%-Lactated Ringers 1, 1000 000 ml @ 75 mls/hr IV .[id number] [facility] Rx#:[id number] Oral 0 Output: Void Amount 800 Urine/Stool Mix 500 Other: Stool Size Large Smear Stool Color Brown Stool Consistency Watery Liquid # of times incontinent of 1 Bowels Exam: non toxic, conversant Respiratory Respiratory exam: Present normal respiratory exam Additional comments: non labored Cardiovascular Cardiovascular exam: Present RRR GI/Abdominal Additional comments: soft and non distended, non tender, incisions healing well Extremities Exam Additional comments: well perfused A/P Narrative A/P Narrative: Stage IV Gastric Cancer Plain films this am not suggestive of obstruction Start diet - full liquids and replete K+ Increase activity Re check plain films in the AM to assure no evidence of mechanical issue - SBFT if any concern regarding possible recurrent partial SBO Time Spent With Patient Time: Total time spent is greater than 50% in coordination of care (as documented) at patient's floor/unit and/or counseling patient:
[2022-03-20] MEDS: HYDROmorphone 0.5 MG/0.5 ML SYRINGE IV PRN ×3 (10:55→20:27)
[2022-03-20] MEDS: ONDANSETRON 4 MG/2 ML VIAL IV PRN ×2 (16:26→20:27)
[2022-03-21] MEDS: DEXTROSE 5%-LR 1,000 ML IV SCH ×4 (05:16→19:35)
[2022-03-21] MEDS: 0.9 % SODIUM CHLORIDE 10 ML SYRINGE IV SCH ×4 (05:16→22:50)
[2022-03-21] MEDS: HYDROmorphone 0.5 MG/0.5 ML SYRINGE IV PRN ×5 (06:01→23:05)
[2022-03-21] MEDS: ONDANSETRON 4 MG/2 ML VIAL IV PRN (06:01)
--- NOTE | 2022-03-21 06:44 | XRay Report ---
INDICATION: eval bowel gas pattern TECHNIQUE: Supine abdomen. COMPARISON: Plain film examinations dated 03/20/2022, 03/05/2022 FINDINGS:Skin bravo in a vertical midline incision. There is some colonic gas. There is prominent gas filled small bowel in the left side of the abdomen. Small bowel measures approximately 3.0 cm in cross-sectional diameter. Findings may be due to postoperative ileus. Continued follow-up recommended to exclude recurrent obstruction. IMPRESSION: Prominent gas filled small bowel as above Interpreted and Authenticated by: Jaleel Martini 03/21/22
[2022-03-21 07:50] LABS: Blood Urea Nitrogen 4 mg/dL (8-23); Calcium 8.1 mg/dL (8.6-10.4); Carbon Dioxide 25 mmol/L (22-30); Chloride 102 mmol/L (96-108); Glomerular Filtration Rate 68; Glucose 108 mg/dL (70-105)
[2022-03-21] MEDS: PANTOPRAZOLE 40 MG VIAL IV SCH ×2 (08:22→22:55)
--- NOTE | 2022-03-21 09:36 | General Surgery Progress Note ---
SUBJECTIVE Subjective Patient information: Note initiated : 03/21/22 at 9:30 am Service Date, if different from initiated Date: [] Patient: Mary Ellen Jimenez 62 y/o F admitted on 03/17/22 for Abdominal Pain. Chief Complaint: [] Continues to pass gas and stool but has issues with oral intake secondary to pain and nausea. Emesis this AM post ensure. Principal diagnosis: recurrent small bowel obstruction secondary to metastases Constitutional Vitals: Vital Signs Temp Pulse Resp BP Pulse Ox 99.7 F H 69 16 150/86 9 L 03/21/22 06:56 03/21/22 06:56 03/21/22 06:56 03/21/22 06:56 03/21/22 06:56 Period Temp Pulse Resp BP Sys/Plummer Pulse Ox Last 24 Hr 97.1 F-99.7 F 61-82 14-18 136-182/82-86 9-96 Intake and Output 03/20/22 03/21/22 03/21/22 21:59 05:59 13:59 Intake Total 460 1060 Output Total 450 400 200 Balance 10 660 -200 Weight 114 lb 14.4 oz Intake & Output: Intake & Output 03/20/22 03/21/22 03/21/22 21:59 05:59 13:59 Intake Total 460 1060 Output Total 450 400 200 Balance 10 660 -200 Weight 114 lb 14.4 oz Intake: Nourishment/Supplement quantity 200 (ml) IV 260 960 Dextrose 5%-Lactated Ringers 1, 960 000 ml @ 75 mls/hr IV .[id number] [facility] Rx#:[id number] Potassium Chloride 20 Meq In 260 Dextrose 5% in Water 250 ml @ 130 mls/hr IV ONCE ONE Rx#: [id number] Oral 100 Output: Void Amount 450 400 Emesis 200 Other: Meal Dinner Percent of Meal Consumed 25% Feeding Ability Independent Nourishment/Supplement name Ensure Urine Appearance Clear Clear Urine Color Bright Yellow Bright Yellow # Voids 2 # Unmeasured Emesis 1 Exam: Looks non toxic, upset with some emotional distress Respiratory Additional comments: Non labored Cardiovascular Cardiovascular exam: Present RRR GI/Abdominal Additional comments: seems sof t and non tender, no real distension, well healed abdominal incisions Extremities Exam Additional comments: well perfused A/P Assessment and plan (1) Adenocarcinoma: Assessment and plan: Metastatic Gastric Cancer Issues with oral intake continue and prohibit discharge and progression of care. Will check CT A/P today to assess for any evidence of partial SBO. If evidence of a mechanical issues persists then will have to consider/discuss return to the OR for ex lap with possible SB resection. Will place PICC line today in anticipation of need for TPN Lengthy discussion with family last night regarding issues and concerns Status: Acute Time Spent With Patient Time: Total time spent is greater than 50% in coordination of care (as documented) at patient's floor/unit and/or counseling patient:
[2022-03-21] MEDS ORDERED: 0.9 % SODIUM CHLORIDE 10 ML SYRINGE IV PRN (09:51)
[2022-03-21] MEDS ORDERED: IOPAMIDOL 100 ML BOTTLE IV ONE (10:03)
--- NOTE | 2022-03-21 10:42 | Cat Scan Report ---
INDICATION: eval for SBO COMPARISON: Previous plain film examinations dated 03/21/2022, 03/20/2022. Previous CT scan dated 03/16/2022. Previous CT scans dated 02/28/2020 1022, 02/15/2022, 02/08/2022 TECHNIQUE: Axial images were obtained through the abdomen and pelvis. Sagittally and coronally reformatted images. 80 mL Isovue 370 injected intravenously. Oral contrast material was not administered FINDINGS: Lung bases:Negative. No pulmonary parenchymal nodule. No pleural fluid or pericardial fluid Liver:Low-density lesions within the liver appear benign. There is a 5 mm low-density abnormality in the left lobe of the liver. There is a 7 mm low-density abnormality in the right lobe. There is a 16 mm low-density abnormality in the caudate lobe. These findings are all stable and are consistent with benign simple cysts. Gallbladder, bilary:No calcified gallstones. No dilated bile ducts. Common bile duct measures 6 mm Spleen:No splenomegaly. Normal enhancement of splenic and portal veins. Pancreas:No pancreatic mass. No peripancreatic abnormality Adrenal glands:Negative Kidneys,ureters,bladder:Negative left kidney. No solid or cystic mass. No hydronephrosis. Right renal pelvis and calyces remain enlarged. This is unchanged since 03/16/2022 but increased since 02/08/2022. There is apparent thickening of the ureteral wall at the ureteropelvic junction. No obstructing calculi. Clinical correlation for possible hematuria recommended. Retrograde ureterogram may be helpful for further evaluation. No hydroureter. No ureteral calculus. No bladder stone. No detectable bladder mass. Gastrointestinal:Colon is unremarkable. There is gas and fecal material within the colon. No detectable colonic mass. There is no diverticulitis. Small bowel is prominent. Previous examination demonstrated fluid filled and distended ileum with possible transition point or transition points. This appearance has resolved. Overall appearance is improved without evidence for significant small bowel obstruction. There is an anastomotic suture line without evidence for obstruction. Negative stomach and duodenum. No focal abnormality. Appendix: The appendix is nonvisualized. No evidence for appendicitis Vascular:Negative abdominal aorta. Superior mesenteric artery and celiac trunk are normal. Normal opacification of the inferior mesenteric artery Lymphatic:No retroperitoneal or mesenteric adenopathy Mesentery, peritoneum: No free intraperitoneal fluid. No pneumoperitoneum. No intra-abdominal abscess Reproductive:Uterus is anteflexed and appears somewhat prominent for age. No adnexal mass Musculoskeletal:No lumbar compression fractures. Sacrum and pelvis are negative. No hip fracture. No abdominal wall or inguinal hernia IMPRESSION: 1. Mildly prominent small bowel without transition point or evidence for obstruction. Bowel gas pattern is improved. There is gas and fecal material throughout the colon 2. Benign hepatic cysts are stable 3. Dilatation of right renal pelvis and calyces, unchanged since 03/16/2022 but increased since 02/08/2022. There is possible ureteral wall thickening at the right ureteropelvic junction. Urologic consult may be appropriate The exam was performed using radiation dose optimization techniques including, but not limited to, automated exposure control, adjustment of the mA and/or kV according to patient size and use of iterative reconstruction technique. Interpreted and Authenticated by: Jaleel Martini 03/21/22
[2022-03-21] MEDS ORDERED: TPN PER PHARMACY IV ONE (13:11)
[2022-03-21 14:30] LABS: Albumin 3.1 gm/dL (3.2-5.2); Phosphorous 3.1 mg/dL (2.5-4.5)
--- NOTE | 2022-03-21 17:49 | XRay Report ---
INDICATION: PICC PLACEMENT TECHNIQUE: AP portable upright chest x-ray COMPARISON: None FINDINGS: Left-sided PICC line with its tip in the superior vena cava. Lungs are negative. No parenchymal infiltrate or mass. No focal abnormality. Heart size and vascularity are normal IMPRESSION: Left-sided PICC line with its tip in superior vena cava Interpreted and Authenticated by: Jaleel Martini 03/21/22
[2022-03-21] MEDS: diphenhydrAMINE 50 MG/ML VIAL IV PRN (22:58)
[2022-03-22] MEDS: DEXTROSE 5%-LR 1,000 ML IV SCH ×4 (05:19→21:35)
[2022-03-22] MEDS: 0.9 % SODIUM CHLORIDE 10 ML SYRINGE IV SCH ×5 (05:47→20:53)
[2022-03-22 07:03] LABS: Hematocrit 26.3 % (34.1-44.9); Hemoglobin 8.5 g/dL (11.2-15.7); Mean Cell Volume 87.1 fL (80.0-100.0); Mean Corpuscular HGB Conc 32.3 g/dL (31.0-36.0); Mean Platelet Volume 10.1 fL (7.4-10.4); Platelet Count 253 K/mcL (140-440); RBC 3.02 M/mcL (3.59-5.38); Red Cell Distribution Width 15.4 % (11.5-14.5); WBC 4.5 K/mcL (4.5-11.0)
[2022-03-22 07:16] LABS: Blood Urea Nitrogen 5 mg/dL (8-23); Calcium 7.9 mg/dL (8.6-10.4); Carbon Dioxide 31 mmol/L (22-30); Chloride 101 mmol/L (96-108); Glomerular Filtration Rate 68; Glucose 95 mg/dL (70-105)
[2022-03-22] MEDS: ONDANSETRON 4 MG/2 ML VIAL IV PRN (08:23)
[2022-03-22] MEDS: PANTOPRAZOLE 40 MG VIAL IV SCH ×2 (08:24→20:44)
[2022-03-22] MEDS ORDERED: POTASSIUM CHLORIDE 20 MEQ in DEXTROSE 5% IN WATER 250 ML IV ONE (08:53)
[2022-03-22] MEDS: POTASSIUM CHLORIDE 20 MEQ in DEXTROSE 5% IN WATER 100 ML IV SCH ×2 (09:27→11:37)
[2022-03-22] MEDS ORDERED: DEXTROSE 50% 50 ML SYRINGE IV PRN (09:37)
[2022-03-22] MEDS ORDERED: TPN PER PHARMACY IV SCH (09:45)
[2022-03-22] MEDS ORDERED: MAGNESIUM SULFATE IV SCH (11:00)
[2022-03-22] MEDS ORDERED: [UNRECOGNIZED DRUG - OTHER] IV SCH (11:00)
[2022-03-22] MEDS ORDERED: CALCIUM GLUCONATE IV SCH (11:00)
[2022-03-22] MEDS ORDERED: POTASSIUM CHLORIDE IV SCH (11:00)
[2022-03-22] MEDS ORDERED: MVI IV SCH (11:00)
--- NOTE | 2022-03-22 11:05 | General Surgery Progress Note ---
SUBJECTIVE Subjective Patient information: Note initiated : 03/22/22 at 10:55 am Service Date, if different from initiated Date: [] Patient: Mary Ellen Jimenez 62 y/o F admitted on 03/17/22 for Abdominal Pain. Chief Complaint: [] Mary Ellen continues to struggle with oral intake and not feeling well. Passing gas and having bowel function. CT scan yesterday no evidence of SBO or other bowel issue. Some evidence of possible infection or blockage in the Right Proximal Urinary Tract with thickening and ? inflammation. No reports of hematuria or cloudy urine Principal diagnosis: recurrent small bowel obstruction secondary to metastases Constitutional Vitals: Vital Signs Temp Pulse Resp BP Pulse Ox 99.7 F H 67 16 161/80 96 03/22/22 08:00 03/22/22 08:00 03/22/22 08:00 03/22/22 08:00 03/22/22 08:00 Period Temp Pulse Resp BP Sys/Plummer Pulse Ox Last 24 Hr 97.6 F-99.7 F 62-87 14-18 136-161/76-90 92-97 Intake and Output 03/21/22 03/22/22 03/22/22 21:59 05:59 13:59 Intake Total 627 1173 Output Total 800 900 Balance -173 273 Weight 114 lb 14.4 oz 114 lb 14.4 oz Patient Weight 03/23/22 05:59 Weight 114 lb 14.4 oz Intake & Output: Intake & Output 03/21/22 03/22/22 03/22/22 21:59 05:59 13:59 Intake Total 627 1173 Output Total 800 900 Balance -173 273 Weight 114 lb 14.4 oz 114 lb 14.4 oz Intake: IV 627 973 Dextrose 5%-Lactated Ringers 1, 627 973 000 ml @ 100 mls/hr IV .Q10H [facility] Rx#:[id number] Oral 200 Output: Void Amount 800 900 Other: Urine Appearance Clear Clear Clear Urine Color Pale Dark Yellow Straw Urine Odor Normal # Bowel Movements 0 Exam: non toxic, NAD, conversant Respiratory Additional comments: Normal respiratory effort without distress Cardiovascular Cardiovascular exam: Present RRR GI/Abdominal Additional comments: soft and non tender, non distended, no mass, incisions well healed Extremities Exam Additional comments: well perfused A/P Assessment and plan (1) Gastric cancer: Assessment and plan: Metastatic Gastric Cancer No evidence of obstruction on CT yesterday but oral intake continues to be marginal - PICC line placed, will start TPN today May ultimately require feeding tube placement but would likely require surgery - will hold off for now Low grade temps of ? etiology. Given CT finding in Right Urinary System, will send UA and start Levaquin empirically and consider Urologic Consultation Status: Acute Time Spent With Patient Time: Total time spent is greater than 50% in coordination of care (as documented) at patient's floor/unit and/or counseling patient:
[2022-03-22] MEDS: HYDROmorphone 0.5 MG/0.5 ML SYRINGE IV PRN ×3 (11:28→19:47)
[2022-03-22] MEDS: INSULIN LISPRO 1 UNIT/0.01 ML UNIT SQ SCH ×2 (11:33→17:30)
[2022-03-22] MEDS ORDERED: FAT EMULSION 20% 250 ML in PREMIX 1 BAG IV SCH (16:00)
[2022-03-23] MEDS: INSULIN LISPRO 1 UNIT/0.01 ML UNIT SQ SCH ×5 (00:27→23:57)
[2022-03-23 06:15] LABS: Basophils # (Auto) 0.02 K/mcL (0.00-0.30); Basophils % (Auto) 0.3 % (0.0-2.0); Eosinophils # (Auto) 1.03 K/mcL (0.00-0.70); Eosinophils % (Auto) 17.2 % (0.0-7.0); Hematocrit 27.7 % (34.1-44.9); Lymphocytes # (Auto) 0.65 K/mcL (1.50-4.80); Lymphocytes % (Auto) 10.9 % (15.5-49.0); Mean Cell Volume 87.1 fL (80.0-100.0); Mean Corpuscular HGB Conc 32.5 g/dL (31.0-36.0); Mean Platelet Volume 10.1 fL (7.4-10.4); Monocytes # (Auto) 0.81 K/mcL (0.10-0.90); Monocytes % (Auto) 13.5 % (1.0-12.0); Neutrophils % (Auto) 58.1 % (38.0-78.0); Platelet Count 241 K/mcL (140-440); RBC 3.18 M/mcL (3.59-5.38); Red Cell Distribution Width 15.1 % (11.5-14.5)
[2022-03-23] MEDS: 0.9 % SODIUM CHLORIDE 10 ML SYRINGE IV SCH ×5 (06:37→21:11)
[2022-03-23 06:52] LABS: ALT/SGPT 8 U/L (<40); AST/SGOT 14 U/L (<32); Albumin/Globulin Ratio 1.4 (1.0-2.3); Alkaline Phosphatase 73 U/L (39-117); Bilirubin,Direct < 0.2 mg/dL (0-0.3); Bilirubin,Total 0.3 mg/dL (0.1-1.0); Blood Urea Nitrogen 4 mg/dL (8-23); Calcium 8.3 mg/dL (8.6-10.4); Carbon Dioxide 28 mmol/L (22-30); Chloride 99 mmol/L (96-108); Globulin 2.2 gm/dL (2.2-3.7); Glomerular Filtration Rate 59; Glucose 128 mg/dL (70-105); Lactate Dehydrogenase 221 U/L (135-225); Phosphorous 2.8 mg/dL (2.5-4.5); Triglycerides 103 mg/dL (<150)
[2022-03-23] MEDS: PANTOPRAZOLE 40 MG VIAL IV SCH ×2 (08:37→20:42)
[2022-03-23] MEDS: HYDROmorphone 0.5 MG/0.5 ML SYRINGE IV PRN ×3 (08:39→21:08)
[2022-03-23] MEDS ORDERED: MVI IV SCH (11:00)
[2022-03-23] MEDS ORDERED: CALCIUM GLUCONATE IV SCH (11:00)
[2022-03-23] MEDS ORDERED: [UNRECOGNIZED DRUG - OTHER] IV SCH (11:00)
[2022-03-23] MEDS ORDERED: MAGNESIUM SULFATE IV SCH (11:00)
[2022-03-23] MEDS ORDERED: POTASSIUM CHLORIDE IV SCH (11:00)
--- NOTE | 2022-03-23 12:14 | General Surgery Progress Note ---
SUBJECTIVE Subjective Patient information: Note initiated : 03/23/22 at 12:09 pm Service Date, if different from initiated Date: [] Patient: Mary Ellen Jimenez 62 y/o F admitted on 03/17/22 for Abdominal Pain. Chief Complaint: [] She feels well today and is quite conversant. Continues to decline any oral intake for fear she'll have pain and throw up. CT demonstrated no evidence of SBO. PICC Line and TPN Running Principal diagnosis: recurrent small bowel obstruction secondary to metastases Constitutional Vitals: Vital Signs Temp Pulse Resp BP Pulse Ox 98.3 F 71 14 172/89 96 03/23/22 07:20 03/23/22 07:20 03/23/22 07:20 03/23/22 07:20 03/23/22 07:20 Period Temp Pulse Resp BP Sys/Plummer Pulse Ox Last 24 Hr 97.6 F-99 F 58-80 14-20 157-180/83-93 95-99 Intake and Output 03/22/22 03/23/22 03/23/22 21:59 05:59 13:59 Intake Total 1000 0 Output Total 1250 600 Balance -250 -600 Weight 113 lb 6.4 oz Intake & Output: Intake & Output 03/22/22 03/23/22 03/23/22 21:59 05:59 13:59 Intake Total 1000 0 Output Total 1250 600 Balance -250 -600 Weight 113 lb 6.4 oz Intake: IV 1000 Dextrose 5%-Lactated Ringers 1, 1000 000 ml @ 100 mls/hr IV .Q10H [facility] Rx#:[id number] Oral 0 Output: Void Amount 1250 600 Other: Meal Lunch Percent of Meal Consumed 25% Feeding Ability Independent Urine Appearance Clear Clear Urine Color Bright Yellow Bright Yellow # Voids 3 # Bowel Movements 1 0 General appearance: no acute distress Exam: Conversant and non toxic Respiratory Additional comments: non labored Cardiovascular Additional comments: RRR GI/Abdominal Additional comments: soft and non tender, non distended Extremities Exam Additional comments: well perfused A/P Assessment and plan (1) Gastric cancer: Assessment and plan: Metastatic Gastric Cancer Seems much improved today Continue TPN at full nutritional rate taper other IVFs Arrange home TPN with plans for discharge with PICC in place and home TPN along with Medical Oncology Referral Status: Acute Time Spent With Patient Time: Total time spent is greater than 50% in coordination of care (as documented) at patient's floor/unit and/or counseling patient:
[2022-03-23] MEDS: DEXTROSE 5%-LR 1,000 ML IV SCH (16:59)
[2022-03-23] MEDS: LOSARTAN 50 MG TABLET PO SCH (21:35)
[2022-03-24 06:26] LABS: ALT/SGPT 8 U/L (<40); AST/SGOT 13 U/L (<32); Albumin 2.8 gm/dL (3.2-5.2); Albumin/Globulin Ratio 1.2 (1.0-2.3); Alkaline Phosphatase 71 U/L (39-117); Bilirubin,Direct < 0.2 mg/dL (0-0.3); Bilirubin,Total 0.3 mg/dL (0.1-1.0); Blood Urea Nitrogen 8 mg/dL (8-23); Carbon Dioxide 28 mmol/L (22-30); Chloride 100 mmol/L (96-108); Globulin 2.3 gm/dL (2.2-3.7); Glomerular Filtration Rate 78; Glucose 126 mg/dL (70-105); Lactate Dehydrogenase 214 U/L (135-225); Phosphorous 3.6 mg/dL (2.5-4.5); Triglycerides 149 mg/dL (<150); Uric Acid 1.5 mg/dL (2.5-8.0)
[2022-03-24] MEDS: INSULIN LISPRO 1 UNIT/0.01 ML UNIT SQ SCH ×4 (06:26→23:31)
[2022-03-24] MEDS: HYDROmorphone 0.5 MG/0.5 ML SYRINGE IV PRN ×3 (06:26→18:30)
[2022-03-24] MEDS: 0.9 % SODIUM CHLORIDE 10 ML SYRINGE IV SCH ×5 (06:28→20:58)
[2022-03-24] MEDS: LEVOTHYROXINE 75 MCG TABLET PO SCH (07:14)
--- NOTE | 2022-03-24 08:52 | General Surgery Progress Note ---
SUBJECTIVE Subjective Patient information: Note initiated : 03/24/22 at 8:49 am Service Date, if different from initiated Date: [] Patient: Mary Ellen Jimenez 62 y/o F admitted on 03/17/22 for Abdominal Pain. Chief Complaint: [] No new issues overnight, arrangements underway for home TPN and home health. Outpatient referrals will be made for PET CT and for [facility] in [place] per their request. Principal diagnosis: recurrent small bowel obstruction secondary to metastases Constitutional Vitals: Vital Signs Temp Pulse Resp BP Pulse Ox 97.8 F 59 L 16 158/81 95 03/24/22 07:43 03/24/22 07:43 03/24/22 07:43 03/24/22 07:43 03/24/22 07:43 Period Temp Pulse Resp BP Sys/Plummer Pulse Ox Last 24 Hr 97.7 F-98.9 F 59-68 12-16 139-187/79-93 95-98 Intake and Output 03/23/22 03/24/22 03/24/22 21:59 05:59 13:59 Intake Total 998 25 Output Total 1500 650 Balance -502 -625 Weight 113 lb Intake & Output: Intake & Output 03/23/22 03/24/22 03/24/22 21:59 05:59 13:59 Intake Total 998 25 Output Total 1500 650 Balance -502 -625 Weight 113 lb Intake: IV 998 Dextrose 5%-Lactated Ringers 1, 998 000 ml @ 100 mls/hr IV .Q10H [facility] Rx#:[id number] Oral 25 Output: Void Amount 1500 650 General appearance: no acute distress Respiratory Respiratory exam: Present normal respiratory exam Cardiovascular Cardiovascular exam: Present RRR GI/Abdominal Additional comments: soft and non distended, non tender, midline incisions well healed Extremities Exam Additional comments: well perfused A/P Assessment and plan (1) Gastric cancer: Assessment and plan: Metastatic Gastric Cancer Marginal oral intake - arranging home TPN for now and outside Cancer Center Referral Issues discussed and reviewed at length with patient this AM Status: Acute Time Spent With Patient Time: Total time spent is greater than 50% in coordination of care (as documented) at patient's floor/unit and/or counseling patient:
[2022-03-24] MEDS: PANTOPRAZOLE 40 MG VIAL IV SCH ×2 (09:07→20:45)
[2022-03-24] MEDS: DEXTROSE 5%-LR 1,000 ML IV SCH ×2 (09:08→13:19)
[2022-03-24] MEDS ORDERED: MAGNESIUM SULFATE IV SCH (11:00)
[2022-03-24] MEDS ORDERED: CALCIUM GLUCONATE IV SCH (11:00)
[2022-03-24] MEDS ORDERED: [UNRECOGNIZED DRUG - OTHER] IV SCH (11:00)
[2022-03-24] MEDS ORDERED: POTASSIUM CHLORIDE IV SCH (11:00)
[2022-03-24] MEDS: diphenhydrAMINE 50 MG/ML VIAL IV PRN (20:41)
[2022-03-24] MEDS: LOSARTAN 50 MG TABLET PO SCH (20:58)
[2022-03-25] MEDS: DEXTROSE 5%-LR 1,000 ML IV SCH (05:13)
[2022-03-25] MEDS: INSULIN LISPRO 1 UNIT/0.01 ML UNIT SQ SCH (05:16)
[2022-03-25] MEDS: HYDROmorphone 0.5 MG/0.5 ML SYRINGE IV PRN ×2 (07:05→10:06)
[2022-03-25 07:43] LABS: Hematocrit 28.8 % (34.1-44.9); Hemoglobin 9.2 g/dL (11.2-15.7); Mean Cell Volume 88.3 fL (80.0-100.0); Mean Corpuscular HGB Conc 31.9 g/dL (31.0-36.0); Mean Platelet Volume 10.3 fL (7.4-10.4); Platelet Count 281 K/mcL (140-440); RBC 3.26 M/mcL (3.59-5.38); Red Cell Distribution Width 15.3 % (11.5-14.5)
[2022-03-25 07:47] LABS: ALT/SGPT 7 U/L (<40); AST/SGOT 16 U/L (<32); Albumin 2.9 gm/dL (3.2-5.2); Albumin/Globulin Ratio 1.1 (1.0-2.3); Alkaline Phosphatase 75 U/L (39-117); Bilirubin,Direct < 0.2 mg/dL (0-0.3); Bilirubin,Total 0.3 mg/dL (0.1-1.0); Blood Urea Nitrogen 13 mg/dL (8-23); Calcium 8.5 mg/dL (8.6-10.4); Carbon Dioxide 23 mmol/L (22-30); Chloride 103 mmol/L (96-108); Globulin 2.6 gm/dL (2.2-3.7); Glomerular Filtration Rate 78; Glucose 118 mg/dL (70-105); Lactate Dehydrogenase 266 U/L (135-225); Phosphorous 3.9 mg/dL (2.5-4.5); Triglycerides 143 mg/dL (<150)
[2022-03-25 08:10] LABS: Prealbumin 10.3 mg/dL (20.0-40.0)
[2022-03-25] MEDS: LEVOTHYROXINE 75 MCG TABLET PO SCH (08:54)
[2022-03-25] MEDS: PANTOPRAZOLE 40 MG VIAL IV SCH (08:54)
--- NOTE | 2022-03-25 13:14 | General Surgery Progress Note ---
SUBJECTIVE Subjective Patient information: Note initiated : 03/25/22 at 1:11 pm Service Date, if different from initiated Date: [] Patient: Mary Ellen Jimenez 62 y/o F admitted on 03/17/22 for Abdominal Pain. Chief Complaint: [] Looks and feels well, much improved Ok for home today with follow up in clinic Principal diagnosis: recurrent small bowel obstruction secondary to metastases Constitutional Vitals: Vital Signs Temp Pulse Resp BP Pulse Ox 97.7 F 66 16 174/85 97 03/25/22 12:26 03/25/22 12:26 03/25/22 12:26 03/25/22 12:26 03/25/22 12:26 Period Temp Pulse Resp BP Sys/Plummer Pulse Ox Last 24 Hr 97.4 F-98.8 F 59-76 12-16 140-174/77-87 94-99 Intake and Output 03/24/22 03/25/22 03/25/22 21:59 05:59 13:59 Intake Total 180 1120 Output Total 800 250 Balance -620 870 Weight 112 lb 3.2 oz Intake & Output: Intake & Output 03/24/22 03/25/22 03/25/22 21:59 05:59 13:59 Intake Total 180 1120 Output Total 800 250 Balance -620 870 Weight 112 lb 3.2 oz Intake: IV 1000 Dextrose 5%-Lactated Ringers 1, 1000 000 ml @ 50 mls/hr IV .Q20H [facility] Rx#:[id number] Oral 180 120 Output: Void Amount 800 250 Other: Meal Dinner Breakfast Percent of Meal Consumed 25% bites Feeding Ability Independent Independent Urine Appearance Clear Clear Urine Color Bright Yellow Bright Yellow # Voids 0 Exam: Looks well, NAD, fully conversant Respiratory Additional comments: non labored no distress Extremities Exam Additional comments: appear well perfused A/P Narrative A/P Narrative: Metastatic Gastric Cancer Doing Well Home today with PICC in place and home TPN Oncology Consultation later today at [facility] follow up as needed and in 1-2 weeks Time Spent With Patient Time: Total time spent is greater than 50% in coordination of care (as documented) at patient's floor/unit and/or counseling patient:
--- NOTE | 2022-03-26 08:28 | Discharge Summary ---
DATE OF ADMISSION: 03/17/2022 DATE OF DISCHARGE: 03/25/2022 ADMITTING DIAGNOSES: 1. Anemia. 2. Abdominal pain. DISCHARGE DIAGNOSES: 1. Anemia. 2. Abdominal pain. 3. Metastatic gastric cancer. PROCEDURES: 1. Upper endoscopy on 03/18/2022. 2. Colonoscopy on 03/19/2022. INDICATIONS FOR ADMISSION/HOSPITAL COURSE: The patient is a 62-year-old female who had three repetitive bouts of bowel obstruction over a fairly short period of time, starting back in January and extending into February. She would come in with evidence of vomiting, increased abdominal distention, pain, discomfort, and imaging showing evidence of a fairly high-grade partial small bowel obstruction. An NG tube would be placed, she would improve dramatically within 24 to 48 hours, would essentially have resolution of her symptomatology, be sent home on a diet, and then would do well for a short period of time and then return in 3 to 4 to 5 days or go to the emergency room with a recurrence of her symptoms. Initially, the bowel obstructions have been presumed to be adhesion-related given her prior surgical history, but after she presented a third time with a small bowel obstruction, we recommended surgery which she underwent on 02/11/2022. 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 The primary was not clear but pathology was quite clear that this was metastatic of origin and not mucosally-based or small bowel origin. She was in the course of undergoing further workup for this after being discharged from surgery and after recovering successfully in the hospital from surgery to the point that she could be sent home, when she returned to the emergency room on 03/17/2022 just feeling poorly and having persistence of abdominal pain, discomfort, and some inability to keep food and drink down. She underwent imaging at that time which demonstrated some small bowel distention but most importantly she was found to have a hemoglobin of less than 7, and based on that we felt she should be admitted for further workup and expedite her overall management, also for blood transfusion which we felt at that point was symptomatic for her. She was brought into the hospital. She received two units of blood in the emergency room and was started on a proton pump inhibitor regimen. We sought a GI consult for upper and lower endoscopy which were performed on 03/18/2022 and 03/19/2022, respectively, and demonstrated findings consistent with a primary gastric cancer with an ulcerated mass in the stomach. Biopsy results of which are still pending but was morphologically consistent with a primary gastric cancer. Colonoscopy was performed as well which did not demonstrate any significant findings. It was essentially felt to be normal. She was able to be prepped for her colonoscopy. It became fairly clear clinically that there was no overt evidence of bowel obstruction, but she struggled with oral intake over the next several days to the point that I felt that a PICC line needed to be placed for supplemental nutrition while she was continuing to recover. Outpatient arrangements have been made for Oncology consultation, and by the morning of 03/25/2022 she was felt ready for discharge and for upcoming Oncology consultation. At this time, she was tolerating a regular diet. Her TPN had been started via PICC line, and although she was tolerating the diet, it was with only modest intake, and so we felt that she should continue on TPN for at least a brief period of time as an outpatient, and that is in the process of being arranged for her. Of note, she underwent a CT scan mid-hospital admission as well which again confirmed no evidence of persistent small bowel obstruction, and she was having good bowel function at the time of discharge. DISPOSITION: Discharged home on oral proton pump inhibitor therapy twice daily as well as anti-nausea medications and unrestricted oral diet and plans for home TPN supplementation via a left arm PICC line that was placed during the hospitalization as well. IN-HOSPITAL PROCEDURES: 1. Upper endoscopy on 03/18/2022. 2. Lower endoscopy on 03/19/2022. 3. PICC line placement on 03/21/2022. BW:[email or web address] Job ID: [id number] Doc ID: [id number] Nick Coats M.D.
== END 2022-03-25 13:53 | disposition home or self-care (01) | DRG 812 ==
LOC: ED 21:10 → MEDSUR 03-17 08:11
PROVIDERS: ADMIT Surgery Surgical Critical Care; ATTEND Surgery Surgical Critical Care

== ENCOUNTER 2022-04-21 08:06 | Inpatient (IN) ==
[~2022-04-21 08:06] MED LIST: IPRATROPIUM/ALBUTEROL 3 ML AMPUL.NEB NEB PRN; PIPERACILLIN SODIUM/TAZOBACTAM 3.375 GM in DEXTROSE 5% IN WATER 50 ML IV SCH; SCOPOLAMINE 1 PATCH PATCH TOPICAL PRN
[2022-04-21 11:28] LABS: POC Calcium, Ionized 0.82 (1.16-1.32); POC Creatinine 0.8 (0.6-1.2); POC Potassium 4.8 (3.3-5.1)
[2022-04-21] MEDS ORDERED: fentaNYL 100 MCG/2 ML VIAL IV ONE (11:59)
[2022-04-21] MEDS ORDERED: PHENYLephrine 1 MG/10 ML SYRINGE (ANEST) ONE (11:59)
[2022-04-21] MEDS ORDERED: MAGNESIUM SULFATE 2 GM/50 ML BAG IV ONE (11:59)
[2022-04-21] MEDS ORDERED: LIDOCAINE HCL/PF 100 MG/5 ML SYRINGE IV ONE (11:59)
[2022-04-21] MEDS ORDERED: ROCURONIUM 10 MG/ML ML IV ONE (11:59)
[2022-04-21] MEDS ORDERED: ONDANSETRON 4 MG/2 ML VIAL ONE (11:59)
[2022-04-21] MEDS ORDERED: PROPOFOL 200 MG/20 ML VIAL IV ONE (11:59)
[2022-04-21] MEDS ORDERED: KETAMINE 50 MG/ML Syringe (ANEST) IV ONE (11:59)
[2022-04-21] MEDS ORDERED: MIDAZOLAM 2 MG/2 ML VIAL ONE (11:59)
[2022-04-21] MEDS ORDERED: DEXAMETHASONE 10 MG/ML VIAL ONE (11:59)
[2022-04-21] MEDS ORDERED: 0.9 % SODIUM CHLORIDE 250 ML IV SCH (12:00)
[2022-04-21 12:37] LABS: Hematocrit 23.7 % (34.1-44.9); Hemoglobin 7.5 g/dL (11.2-15.7); Mean Cell Volume 90.8 fL (80.0-100.0); Mean Corpuscular HGB Conc 31.6 g/dL (31.0-36.0); Platelet Count 222 K/mcL (140-440); RBC 2.61 M/mcL (3.59-5.38)
[2022-04-21] MEDS ORDERED: KETOROLAC 30 MG/ML VIAL IV PRN (15:03)
[2022-04-21] MEDS ORDERED: LACTATED RINGERS 250 ML IV PRN (15:03)
[2022-04-21] MEDS ORDERED: morphine 2 MG/ML VIAL IV PRN (15:03)
[2022-04-21] MEDS ORDERED: PROMETHAZINE 25 MG/ML VIAL IM PRN (15:03)
[2022-04-21] MEDS ORDERED: PROMETHAZINE 25 MG/ML VIAL IV PRN (15:03)
[2022-04-21] MEDS ORDERED: ACETAMINOPHEN 1,000 MG/100 ML BAG IV ONE (15:03)
[2022-04-21] MEDS ORDERED: IPRATROPIUM/ALBUTEROL 3 ML AMPUL.NEB NEB PRN (15:03)
[2022-04-21] MEDS ORDERED: ONDANSETRON 4 MG/2 ML VIAL IV PRN (15:03)
[2022-04-21] MEDS ORDERED: FLUMAZENIL 0.1 MG/ML ML IV PRN (15:03)
[2022-04-21] MEDS ORDERED: MEPERIDINE 50 MG/ML VIAL IM PRN (15:03)
[2022-04-21] MEDS ORDERED: LABETALOL 5 MG/ML ML IV PRN (15:03)
[2022-04-21] MEDS ORDERED: MEPERIDINE 25 MG/ML VIAL IV PRN (15:03)
[2022-04-21] MEDS ORDERED: NALOXONE HCL 0.4 MG/ML VIAL IV PRN (15:03)
[2022-04-21] MEDS ORDERED: BACITRACIN TOPICAL OINT 15 GM TUBE TOPICAL ONE (15:08)
[2022-04-21] MEDS ORDERED: LACTATED RINGERS 1,000 ML IV SCH (15:15)
[2022-04-21] MEDS: fentaNYL 100 MCG/2 ML VIAL IV PRN ×4 (15:17→15:26)
--- NOTE | 2022-04-21 15:57 | Brief Operative Note ---
Brief Operative Note Date of procedure: 04/21/22 Pre-op diagnosis: Stage IV Gasttric Cancer with Need for Feeding Tube Jejunost moe Post-op diagnosis: same Procedure: Ex Lap, Extensive Lysis of Adhesions, Feeding Tube Jejunostomy Grafts/Implants: Yes Anesthesia: GETA Findings: 14 FR T Tube for Feeding Tube Jejunostomy Complications: none Surgeon: Nick Coats Estimated blood loss (cc): 20 Specimens Removed/Pathology: none sent Condition: stable Disposition: PACU
[2022-04-21] MEDS: DEXTROSE 5%-1/2NS 1,000 ML IV SCH (16:39)
[2022-04-21 17:20] LABS: Blood Urea Nitrogen 17 mg/dL (8-23); Calcium 8.3 mg/dL (8.6-10.4); Carbon Dioxide 18 mmol/L (22-30); Chloride 100 mmol/L (96-108); Glomerular Filtration Rate 78; Glucose 200 mg/dL (70-105)
[2022-04-21] MEDS: PANTOPRAZOLE 40 MG VIAL IV SCH (17:30)
[2022-04-21] MEDS: HYDROmorphone 0.5 MG/0.5 ML SYRINGE IV PRN (20:15)
[2022-04-21] MEDS: 0.9 % SODIUM CHLORIDE 10 ML SYRINGE IV SCH (20:16)
[2022-04-21] MEDS: PIPERACILLIN SODIUM/TAZOBACTAM 3.375 GM in DEXTROSE 5% IN WATER 50 ML IV SCH (23:03)
[2022-04-22] MEDS: HYDROmorphone 0.5 MG/0.5 ML SYRINGE IV PRN ×5 (02:41→18:55)
[2022-04-22] MEDS: DEXTROSE 5%-1/2NS 1,000 ML IV SCH ×2 (02:42→12:43)
[2022-04-22] MEDS: PIPERACILLIN SODIUM/TAZOBACTAM 3.375 GM in DEXTROSE 5% IN WATER 50 ML IV SCH ×3 (05:49→21:39)
[2022-04-22] MEDS: 0.9 % SODIUM CHLORIDE 10 ML SYRINGE IV SCH ×3 (05:50→21:39)
[2022-04-22 07:40] LABS: Hematocrit 21.9 % (34.1-44.9); Mean Cell Volume 85.9 fL (80.0-100.0); Mean Platelet Volume 10.8 fL (7.4-10.4); Platelet Count 196 K/mcL (140-440); RBC 2.55 M/mcL (3.59-5.38); Red Cell Distribution Width 17.6 % (11.5-14.5); WBC 76.8 K/mcL (4.5-11.0)
[2022-04-22 07:46] LABS: Blood Urea Nitrogen 14 mg/dL (8-23); Calcium 7.7 mg/dL (8.6-10.4); Carbon Dioxide 21 mmol/L (22-30); Chloride 104 mmol/L (96-108); Glomerular Filtration Rate 68; Glucose 207 mg/dL (70-105)
[2022-04-22] MEDS: PANTOPRAZOLE 40 MG VIAL IV SCH ×2 (08:00→18:56)
[2022-04-22] MEDS ORDERED: TPN PER PHARMACY IV SCH (08:29)
[2022-04-22] MEDS ORDERED: CALCIUM GLUCONATE 4.65 MEQ/10 ML VIAL IV ONE (09:01)
[2022-04-22 10:17] LABS: Phosphorous 3.5 mg/dL (2.5-4.5)
[2022-04-22 10:23] LABS: Prealbumin 10.9 mg/dL (20.0-40.0)
[2022-04-22 10:25] LABS: ALT/SGPT 31 U/L (<40); AST/SGOT 43 U/L (<32); Albumin 2.5 gm/dL (3.2-5.2); Albumin/Globulin Ratio 0.9 (1.0-2.3); Alkaline Phosphatase 213 U/L (39-117); Bilirubin,Direct < 0.2 mg/dL (0-0.3); Bilirubin,Total 0.3 mg/dL (0.1-1.0); Blood Urea Nitrogen 10 mg/dL (8-23); Calcium 7.9 mg/dL (8.6-10.4); Carbon Dioxide 21 mmol/L (22-30); Chloride 102 mmol/L (96-108); Globulin 2.7 gm/dL (2.2-3.7); Glomerular Filtration Rate 78; Glucose 296 mg/dL (70-105); Lactate Dehydrogenase 489 U/L (135-225); Phosphorous 3.5 mg/dL (2.5-4.5); Triglycerides 101 mg/dL (<150); Uric Acid 2.3 mg/dL (2.5-8.0)
[2022-04-22] MEDS: CALCIUM GLUCONATE 4.65 MEQ in DEXTROSE 5% IN WATER 50 ML IV SCH ×2 (10:31→11:34)
[2022-04-22] MEDS ORDERED: [UNRECOGNIZED DRUG - OTHER] IV SCH ×3 (15:00)
[2022-04-22] MEDS ORDERED: SODIUM PHOSPHATE IV SCH ×3 (15:00)
[2022-04-22] MEDS ORDERED: SODIUM CHLORIDE IV SCH ×3 (15:00)
[2022-04-22] MEDS ORDERED: POTASSIUM CHLORIDE IV SCH ×3 (15:00)
--- NOTE | 2022-04-22 16:18 | General Surgery Progress Note ---
SUBJECTIVE Subjective Patient information: Note initiated : 04/22/22 at 805 am Service Date, if different from initiated Date: [] Patient: Mary Ellen Jimenez 62 y/o F admitted on 04/21/22 for Laparotomy Exploratory, Lysis Adhesions, Placement. Chief Complaint: [] Some pain overnight but feels well overall, no SOB or Chest Pain Constitutional Vitals: Vital Signs Temp Pulse Resp BP Pulse Ox O2 Del Method O2 Flow Rate 97.6 F 57 L 20 116/72 95 6 04/22/22 12:00 04/22/22 12:00 04/22/22 12:00 04/22/22 12:00 04/22/22 12:00 04/22/22 12:00 04/21/22 15:06 Period Temp Pulse Resp BP Sys/Plummer Pulse Ox O2 Del Method O2 Flow Rate Last 24 Hr 97.2 F-98.6 F 57-97 18-20 99-128/50-81 91-96 Room Air-Room Air Intake and Output 04/22/22 04/22/22 04/22/22 05:59 13:59 21:59 Intake Total 1050 1170 50 Output Total 645 Balance 405 1170 50 Weight 114 lb Patient Weight 04/23/22 05:59 Weight 114 lb Intake & Output: Intake & Output 04/22/22 04/22/22 04/22/22 05:59 13:59 21:59 Intake Total 1050 1170 50 Output Total 645 Balance 405 1170 50 Weight 114 lb Intake: IV 1050 1170 50 Calcium Gluconate 4.65 Meq In 120 Dextrose 5% in Water 50 ml @ 100 mls/hr IV 0930,1030 [facility] Rx# :[id number] Dextrose 5%-1/2Ns IV Solution 1 1000 1000 ,000 ml @ 100 mls/hr IV .Q10H [facility] Rx#:[id number] Zosyn 3.375 gm In Dextrose 5% 50 50 50 in Water 50 ml @ 100 mls/hr IV Q8H [facility] Rx#:[id number] Oral 0 Output: Drainage 70 Left Lower Abdomen AZAM Drain 70 Urine Catheter Amount 575 Other: Urine Appearance Clear Uretheral (Lopez) Clear Urine Color Bright Yellow Uretheral (Lopez) Pale # Bowel Movements 0 # of times incontinent of 0 Bowels Exam: Looks well, non toxic Respiratory Additional comments: non labored, no distress Cardiovascular Cardiovascular exam: Present RRR GI/Abdominal Additional comments: soft and non distended, non tender, JPD some bloody drainage Extremities Exam Additional comments: well perfused A/P Assessment and plan (1) Gastric cancer: Assessment and plan: POD #1 Ex Lap, Feeding Tube Jejunostomy, Extensive Lysis of Adhesions Doing OK Will resume TPN Hold Hep SQ despite DVT risk given evidence of some active ongoing oozing Hold 2 PRBCs in house - re check H/H in am Status: Acute Time Spent With Patient Time: Total time spent is greater than 50% in coordination of care (as documented) at patient's floor/unit and/or counseling patient:
[2022-04-23] MEDS: DEXTROSE 5%-1/2NS 1,000 ML IV SCH ×3 (00:18→16:57)
[2022-04-23] MEDS: HYDROmorphone 0.5 MG/0.5 ML SYRINGE IV PRN ×7 (04:03→23:17)
[2022-04-23] MEDS: 0.9 % SODIUM CHLORIDE 10 ML SYRINGE IV SCH ×3 (05:36→21:26)
[2022-04-23] MEDS: PIPERACILLIN SODIUM/TAZOBACTAM 3.375 GM in DEXTROSE 5% IN WATER 50 ML IV SCH ×3 (05:36→21:14)
[2022-04-23] MEDS: 0.9 % SODIUM CHLORIDE 10 ML SYRINGE IV PRN (05:36)
[2022-04-23 06:59] LABS: ALT/SGPT 25 U/L (<40); AST/SGOT 29 U/L (<32); Albumin 2.5 gm/dL (3.2-5.2); Alkaline Phosphatase 215 U/L (39-117); Bilirubin,Direct < 0.2 mg/dL (0-0.3); Bilirubin,Total 0.2 mg/dL (0.1-1.0); Blood Urea Nitrogen 10 mg/dL (8-23); Calcium 7.9 mg/dL (8.6-10.4); Carbon Dioxide 23 mmol/L (22-30); Chloride 107 mmol/L (96-108); Globulin 2.6 gm/dL (2.2-3.7); Glomerular Filtration Rate 68; Glucose 132 mg/dL (70-105); Lactate Dehydrogenase 397 U/L (135-225); Triglycerides 129 mg/dL (<150); Uric Acid 2.2 mg/dL (2.5-8.0)
--- NOTE | 2022-04-23 07:24 | Operative Note ---
DATE OF OPERATION: 04/21/2022 DATE OF PROCEDURE: 04/21/2022 PREOPERATIVE DIAGNOSIS: Stage IV metastatic gastric cancer with need for enteric supplementation via a feeding tube jejunostomy. POSTOPERATIVE DIAGNOSIS: Stage IV metastatic gastric cancer with need for enteric supplementation via a feeding tube jejunostomy. OPERATIVE PROCEDURE: 1. Exploratory laparotomy with extensive lysis of adhesions. 2. Feeding tube jejunostomy. SURGEON: Nick Coats M.D. ANESTHESIA: General. PREOPERATIVE MEDICATIONS: Zosyn 3.375 g IV. INDICATIONS: The patient is a 62-year-old female who underwent an extensive workup several months ago for recurrent bowel obstructions resulting ultimately in her proceeding to the operating room for a laparoscopic exploration for recurrent small bowel obstructions. At that time, two areas were resected that were found ultimately to be metastatic disease from an unknown hematogenous source at that time. She returned later and underwent upper endoscopy, which confirmed a gastric cancer as her primary with stage IV metastatic gastric cancer. Since that time, she has been undergoing chemotherapy, but has had issues with oral intake and has been getting supplementation via TPN. We were asked by her, her family and her oncology care team to consider placing a feeding tube jejunostomy for her as a nonsurgical feeding tube could not be placed. Risks, benefits, potential complications, and alternative treatment options were discussed at length. These include, but are not limited to bleeding, infection, cosmetic dissatisfaction, abnormal scarring, injury to surrounding structures, potential complications that might preclude her continue her chemotherapy outcomes that could be deleterious on her cancer care in terms of any complication or issues that might arise, the option to not undergo this procedure, to continue with IV supplementation only and other issues. She gave full informed consent and wished to undergo this procedure. DESCRIPTION OF PROCEDURE: The patient was taken to the OR and placed supine on the OR table, placed under general anesthesia and intubated. Bilateral SCDs were applied. All pressure sensitive areas were carefully padded. A Lopez catheter was placed as well as orogastric tube. A vertical midline incision was then made in the mid epigastric region just above the umbilicus to just past it and then extended somewhat cephalad towards the upper aspect of the midepigastric region as well. We then dissected down through the abdominal wall fascia in the vertical midline, which was opened sharply along the entire length of the dissection. The peritoneum was identified and opened sharply as well. We were able to penetrate into the peritoneal cavity. Extensive adhesions were encountered almost immediately. I extended the incision to complete mobilization of the bowel off the overlying abdominal wall. The adhesions were fairly dense. However, I was unable to free up enough bowel to identify the ligament of Treitz with any reliability, and so I had to extend the incision in significant distance in both directions to obtain adequate exposure to mobilize the entire bowel with lysis of adhesions through this incision. Ultimately, I was able to identify the ligament of Treitz and was able to trace the bowel down to the ileocecal junction and the ileocecal valve and the terminal ileum, but in the course of this, I identified multiple, anp-vjmuyyrr-nn-count areas of what appeared to be areas of hematogenous metastatic deposit in the wall of the bowel from her metastatic gastric cancer with multiple areas of narrowing that could represent sites of potential or impending obstruction. There was no obvious obstruction at this time, but again she had qbo-pjdcktrc-mb-count sites of narrowing related to apparent hematogenous metastatic deposits in the bowel wall. In the course of this dissection and freeing up several areas that were adherent and inflamed to one another, there was one area that appeared to be deserosalized in the mid small bowel. This was oversewn very carefully with lemberted 3-0 silk sutures in what appeared to be a satisfactory manner. No thermal energy or cautery was used at any time in the performance of any lysis of these adhesions. At this point, given the fact that there was no obvious bowel distention and no evidence of definitive obstruction, I elected to go ahead and proceed with feeding tube jejunostomy in hopes that she would be able successfully use it. To that end, I identified the ligament of Treitz and then we chose an area roughly 30-40 cm downstream in an area of mid small bowel that seemed to be relatively uninvolved with any malignant deposits. Two interrupted 3-0 silk pursestring sutures were placed on the antimesenteric surface of the small bowel. A small enterotomy was made with cautery and I then advanced a 14-Wallisian T-tube, which was modified and cut to length into the bowel lumen and then secured in place with tying down the pursestring sutures. The catheter was then irrigated to make sure there was no extravasation of saline. None was seen. We then brought the catheter out through a separate stab incision in the left mid abdomen and then carefully sewed the anterior surface of this segment of small bowel that was involved to the overlying abdominal wall peritoneum utilizing interrupted 3-0 silk sutures. This was done very carefully and with great attention to detail to the affected complete sealing off of the area of the tube exit from the bowel to minimize any risk of spillage or issue. Several additional sutures were placed to prevent the bowel from kinking and to prevent any obstruction at this site. Once the tube was brought through the anterior abdominal wall, it was secured in place with an external 3-0 silk sutures as well and then a cap was placed on it. It was irrigated several times with saline prior to this and while visualizing from the underside of the fascia to make sure there was no evidence of any extravasation--none was seen, and to make sure that there was no evidence of any impediment of flow--none was noted. Next, after making sure sponge, needle and instrument counts were correct and given the fact that we had performed such an extensive lysis of adhesions, the fact that her bowel seemed somewhat thin with multiple areas of concern related to disease and also given the delicacy of the bowel with the feeding tube placement, I elected to place a drain. This was brought in through a separate left lower abdominal stab incision and positioned in the area of the serosal oversew and also the area of the feeding tube jejunostomy. It was secured in place with a 3-0 silk suture as well. I then elected to close the fascia with interrupted [id number] 0 Ethibond sutures rather than a continuous running suture as I felt it would get better exposure and allowed for a more precise position of the fascia here. We then extensively irrigated out to subcutaneous tissues after assuring that everything was tied down in good fashion. We irrigated extensively with saline and then closed the skin with bravo. Bacitracin ointment was applied. Sterile dressing was applied. At this point, the patient was awakened and the orogastric tube was removed. She was transferred to PACU in satisfactory condition. COMPLICATIONS: No apparent complications or issues. INSTRUMENT COUNT: Sponge, needle and instrument counts were correct. ESTIMATED BLOOD LOSS: Roughly 25-50 mL. DRAINS: A single 19-Wallisian round Donal drain. BW:helen Job ID: [id number] Doc ID: [id number] Nick Coats M.D. [facility]ENTERLiz
[2022-04-23 07:38] LABS: Hematocrit 18.4 % (34.1-44.9); Hemoglobin 5.9 g/dL (11.2-15.7); Mean Cell Volume 85.2 fL (80.0-100.0); Mean Corpuscular HGB Conc 32.1 g/dL (31.0-36.0); Mean Platelet Volume 11.1 fL (7.4-10.4); Platelet Count 169 K/mcL (140-440); RBC 2.16 M/mcL (3.59-5.38); Red Cell Distribution Width 17.6 % (11.5-14.5); WBC 61.1 K/mcL (4.5-11.0)
[2022-04-23] MEDS ORDERED: 0.9 % SODIUM CHLORIDE 250 ML IV SCH (07:45)
[2022-04-23] MEDS: PANTOPRAZOLE 40 MG VIAL IV SCH ×2 (08:04→16:57)
--- NOTE | 2022-04-23 10:56 | General Surgery Progress Note ---
SUBJECTIVE Subjective Patient information: Note initiated : 04/23/22 at 10:41 am Service Date, if different from initiated Date: [] Patient: Mary Ellen Jimenez 62 y/o F admitted on 04/21/22 for Laparotomy Exploratory, Lysis Adhesions, Placement Feeding Tube Jejunostomy. Chief Complaint:[POD #2] Has some pain, H/H drop this am, no flatus yet, having some incisional oozing Constitutional Vitals: Vital Signs Temp Pulse Resp BP Pulse Ox O2 Del Method O2 Flow Rate 98.4 F 54 L 20 117/68 97 6 04/23/22 08:00 04/23/22 08:00 04/23/22 08:00 04/23/22 08:00 04/23/22 08:00 04/23/22 08:00 04/21/22 15:06 Period Temp Pulse Resp BP Sys/Plummer Pulse Ox O2 Del Method O2 Flow Rate Last 24 Hr 97.6 F-98.7 F 54-67 12-20 83-120/53-72 93-97 Room Air-Room Air Intake and Output 04/22/22 04/23/22 04/23/22 21:59 05:59 13:59 Intake Total 110 1050 962 Output Total 650 1845 Balance -540 -795 962 Weight 120 lb 4.8 oz Intake & Output: Intake & Output 04/22/22 04/23/22 04/23/22 21:59 05:59 13:59 Intake Total 110 1050 962 Output Total 650 1845 Balance -540 -795 962 Weight 120 lb 4.8 oz Intake: IV 50 1050 962 Dextrose 5%-1/2Ns IV Solution 1 1000 912 ,000 ml @ 100 mls/hr IV .Q10H REDD Rx#:[id number] Zosyn 3.375 gm In Dextrose 5% 50 50 50 in Water 50 ml @ 100 mls/hr IV Q8H REDD Rx#:[id number] Oral 60 0 Output: Drainage 20 Left Lower Abdomen AZAM Drain 20 Urine Catheter Amount 650 1825 Uretheral (Ram) 100 Other: Urine Appearance Clear Uretheral (Ram) Clear Urine Color Light January Pale Uretheral (Ram) Dark Yellow Urine Odor Strong Normal Uretheral (Ram) Normal Exam: she looks non toxic, NAD, conversant Respiratory Additional comments: non labored, non toxic Cardiovascular Cardiovascular exam: Present RRR GI/Abdominal Additional comments: abdomen soft and non tender, minimal distension, there appears to be an incisional hematoma with some mild staple line oozing drain is scant bloody drainage and feeding tube appears to be in good position A/P Assessment and plan (1) Gastric cancer: Status: Acute Plan POD #2 Ex lap, extensive lysis of adhesion and placement of a feeding tube je junostomy Anemia has worsened post procedurally. She looks as if she has had an incisional bleed but urine output is excellent, vitals look good so doubt significant active ongoing bleeding but will continue to hold Hep SQ and will transfuse 2 PRBCs and hold 2 additional units on standby, if any evidence of continued or ongoing bleeding will likely need to return to the OR for possible wound exploration and/or consider CT Angio. Additionally, will continue post procedural IV ABs for now given risk of wound hematoma infection Continue NPO for now, TPN at full caloric rate and hold Tube Feeds for now. Re check CBC post transfusion later today and continue ram for now to track Urine Output Time Spent With Patient Time: Total time spent is greater than 50% in coordination of care (as documented) at patient's floor/unit and/or counseling patient:
[2022-04-23] MEDS ORDERED: [UNRECOGNIZED DRUG - OTHER] IV SCH (15:00)
[2022-04-23] MEDS ORDERED: MAGNESIUM SULFATE IV SCH (15:00)
[2022-04-23] MEDS ORDERED: SODIUM PHOSPHATE IV SCH (15:00)
[2022-04-23] MEDS ORDERED: POTASSIUM CHLORIDE IV SCH (15:00)
[2022-04-23 18:57] LABS: Basophils # (Auto) 0.08 K/mcL (0.00-0.30); Basophils % (Auto) 0.1 % (0.0-2.0); Eosinophils # (Auto) 0.03 K/mcL (0.00-0.70); Eosinophils % (Auto) 0 % (0.0-7.0); Hemoglobin 9.7 g/dL (11.2-15.7); Lymphocytes # (Auto) 2.78 K/mcL (1.50-4.80); Lymphocytes % (Auto) 4.6 % (15.5-49.0); Mean Cell Volume 86.3 fL (80.0-100.0); Mean Corpuscular HGB Conc 33.4 g/dL (31.0-36.0); Monocytes # (Auto) 5.07 K/mcL (0.10-0.90); Monocytes % (Auto) 8.3 % (1.0-12.0); Neutrophils % (Auto) 71.8 % (38.0-78.0); Platelet Count 147 K/mcL (140-440); RBC 3.36 M/mcL (3.59-5.38); Red Cell Distribution Width 16.4 % (11.5-14.5)
[2022-04-23 19:16] LABS: Blood Urea Nitrogen 14 mg/dL (8-23); Calcium 7.9 mg/dL (8.6-10.4); Carbon Dioxide 24 mmol/L (22-30); Chloride 104 mmol/L (96-108); Glomerular Filtration Rate 59; Glucose 134 mg/dL (70-105)
[2022-04-23 19:41] LABS: Mean Platelet Volume 10.6 fL (7.4-10.4)
[2022-04-23 19:43] LABS: WBC 60.7 K/mcL (4.5-11.0)
[2022-04-23 19:52] LABS: INR 1.1 (0.9-1.1); Prothrombin Time 14.9 sec (11.9-14.5)
[2022-04-24] MEDS: HYDROmorphone 0.5 MG/0.5 ML SYRINGE IV PRN ×7 (03:00→21:39)
[2022-04-24] MEDS: 0.9 % SODIUM CHLORIDE 10 ML SYRINGE IV SCH ×3 (05:20→21:40)
[2022-04-24] MEDS: PIPERACILLIN SODIUM/TAZOBACTAM 3.375 GM in DEXTROSE 5% IN WATER 50 ML IV SCH ×3 (05:20→22:53)
[2022-04-24] MEDS: DEXTROSE 5%-1/2NS 1,000 ML IV SCH ×2 (05:21→19:39)
--- NOTE | 2022-04-24 05:25 | General Surgery Progress Note ---
SUBJECTIVE Subjective Patient information: Note initiated : 04/24/22 at 5:10am Service Date, if different from initiated Date: [] Patient: Mary Ellen Jimenez 62 y/o F admitted on 04/21/22 for Laparotomy Exploratory, Lysis Adhesions, Placement. Chief Complaint: [POD #3] Called this am regarding an apparent increase in oozing from the wound and concerns regarding active bleeding from this site. She has been otherwise well and feels better than yesterday. Still no flatus. Pain control ok per patient. Lopez was taken out and voiding well. Constitutional Vitals: Vital Signs Temp Pulse Resp BP Pulse Ox O2 Del Method O2 Flow Rate 98 F 62 20 144/83 96 6 04/24/22 03:57 04/24/22 03:57 04/24/22 03:57 04/24/22 03:57 04/24/22 03:57 04/24/22 03:57 04/21/22 15:06 Period Temp Pulse Resp BP Sys/Plummer Pulse Ox O2 Del Method O2 Flow Rate Last 24 Hr 97.8 F-98.7 F 51-62 16-20 117-144/63-83 94-97 Room Air-Room Air Intake and Output 04/23/22 04/23/22 04/24/22 13:59 21:59 05:59 Intake Total 1312 188 0 Output Total 625 620 Balance 1312 -437 -620 Weight 121 lb 6.4 oz Patient Weight 04/24/22 05:59 Weight 121 lb 6.4 oz Intake & Output: Intake & Output 04/23/22 04/23/22 04/24/22 13:59 21:59 05:59 Intake Total 1312 188 0 Output Total 625 620 Balance 1312 -437 -620 Weight 121 lb 6.4 oz Intake: IV 962 188 Dextrose 5%-1/2Ns IV Solution 1 912 88 ,000 ml @ 100 mls/hr IV .Q10H REDD Rx#:[id number] Zosyn 3.375 gm In Dextrose 5% 50 100 in Water 50 ml @ 100 mls/hr IV Q8H REDD Rx#:[id number] Oral 0 Blood Product 350 Output: Drainage 25 20 Left Lower Abdomen AZAM Drain 25 20 Void Amount 600 600 Other: Urine Appearance Clear Clear Urine Color Bright Yellow Bright Yellow Urine Odor Normal Exam: Awake, conversant, looks well Respiratory Additional comments: non labored, no distress, conversant Cardiovascular Cardiovascular exam: Present RRR GI/Abdominal Additional comments: belly soft and flat, minimally tender, incision seems minimally swollen but with some light bruising, some oozing from the upper aspect of the staple line which is otherwise intact drain scant, J tube in place A/P Assessment and plan (1) Gastric cancer: Assessment and plan: POD #3 Ex Lap, Lysis of Adhesions, Feeding Tube Jejunostomy Postoperative bleeding that seems to involve the incision - repeat Hbg pending, 2 units of PRBCs on hold in house. Clinically she looks well and this doesn't seem to be a significant active bleed but if oozing continues will likely have to proceed to the OR for wound exploration Check pending labs and keep NPO for possible wound exploration under anesthesia ADDENDUM: Hbg 9.5 with no appreciable drop, oozing likely doesn't represent significant active bleeding, will hold off on wound exploration at this time but will continue to monitor and if any evidence of infection, dehiscence or other issue then wound exploration may be necessary Status: Acute Time Spent With Patient Time: Total time spent is greater than 50% in coordination of care (as documented) at patient's floor/unit and/or counseling patient:
[2022-04-24 05:57] LABS: Hematocrit 28.8 % (34.1-44.9); Hemoglobin 9.5 g/dL (11.2-15.7); Mean Cell Volume 86.5 fL (80.0-100.0); Mean Platelet Volume 10.4 fL (7.4-10.4); Platelet Count 140 K/mcL (140-440); RBC 3.33 M/mcL (3.59-5.38); Red Cell Distribution Width 16.6 % (11.5-14.5); WBC 53.6 K/mcL (4.5-11.0)
[2022-04-24 06:11] LABS: ALT/SGPT 23 U/L (<40); AST/SGOT 26 U/L (<32); Albumin 2.4 gm/dL (3.2-5.2); Albumin/Globulin Ratio 0.9 (1.0-2.3); Alkaline Phosphatase 203 U/L (39-117); Bilirubin,Direct < 0.2 mg/dL (0-0.3); Bilirubin,Total 0.3 mg/dL (0.1-1.0); Blood Urea Nitrogen 11 mg/dL (8-23); Calcium 7.9 mg/dL (8.6-10.4); Carbon Dioxide 20 mmol/L (22-30); Chloride 103 mmol/L (96-108); Globulin 2.8 gm/dL (2.2-3.7); Glomerular Filtration Rate 68; Glucose 147 mg/dL (70-105); Lactate Dehydrogenase 412 U/L (135-225); Triglycerides 165 mg/dL (<150); Uric Acid 2.4 mg/dL (2.5-8.0)
[2022-04-24] MEDS: PANTOPRAZOLE 40 MG VIAL IV SCH ×2 (08:28→18:20)
--- NOTE | 2022-04-24 12:39 | General Surgery Progress Note ---
SUBJECTIVE Subjective Patient information: Note initiated : 04/24/22 at 12:33 pm Service Date, if different from initiated Date: [] Patient: Mary Ellen Jimenez 62 y/o F admitted on 04/21/22 for Laparotomy Exploratory, Lysis Adhesions, Placement. Chief Complaint: [] Called regarding increased drainage from midline wound and some transient tachycardia while ambulating. Discussed with patient and son at the bedside and my recommendation is that we proceed to the OR to open the wound for exploratio n followed by fascia if need be. Risks, benefits, potential complciations and alternative treatment options are all discussed and reviewed at length including potential findings Constitutional Vitals: Vital Signs Temp Pulse Resp BP Pulse Ox O2 Del Method O2 Flow Rate 98.6 F 101 H 24 H 186/99 97 6 04/24/22 11:40 04/24/22 12:08 04/24/22 12:08 04/24/22 12:08 04/24/22 11:40 04/24/22 11:40 04/21/22 15:06 Period Temp Pulse Resp BP Sys/Plummer Pulse Ox O2 Del Method O2 Flow Rate Last 24 Hr 97.1 F-98.7 F 51-101 16-24 128-186/63-99 94-97 Room Air-Room Air Intake and Output 04/23/22 04/24/22 04/24/22 21:59 05:59 13:59 Intake Total 188 300 Output Total 625 620 Balance -437 -320 Weight 121 lb 6.4 oz 121 lb Patient Weight 04/25/22 05:59 Weight 121 lb Intake & Output: Intake & Output 04/23/22 04/24/22 04/24/22 21:59 05:59 13:59 Intake Total 188 300 Output Total 625 620 Balance -437 -320 Weight 121 lb 6.4 oz 121 lb Intake: IV 188 300 Sodium Chloride 0.9% 250 ml @ 250 20 mls/hr IV .[id number] REDD Rx#: [id number] Dextrose 5%-1/2Ns IV Solution 1 88 ,000 ml @ 100 mls/hr IV .Q10H REDD Rx#:[id number] Zosyn 3.375 gm In Dextrose 5% 100 50 in Water 50 ml @ 100 mls/hr IV Q8H REDD Rx#:[id number] Oral 0 Output: Drainage 25 20 Left Lower Abdomen AZAM Drain 25 20 Void Amount 600 600 Other: Urine Appearance Clear Clear Urine Color Bright Yellow Bright Yellow Urine Odor Normal # Voids 1 Exam: awake, non toxic, conversant GI/Abdominal Additional comments: remains soft and non distended but drainage is noted once again with some clot at the upper aspect of the midline incision, belly is otherwise soft and non tender A/P Assessment and plan (1) Gastric cancer: Assessment and plan: Post procedural bleeding of uncertain etiology Recommend we proceed back to the OR now for wound and possibly abdominal exploration Issues reviewed at length with patient and family along with full discussion of Risks, Benefits, Potential Complications and Alternative Treatment Options Status: Acute Time Spent With Patient Time: Total time spent is greater than 50% in coordination of care (as documented) at patient's floor/unit and/or counseling patient:
[2022-04-24] MEDS ORDERED: TRANEXAMIC ACID 1,000 MG/10 ML VIAL ONE (13:05)
[2022-04-24] MEDS ORDERED: HYDROmorphone 1 MG/ML SYRINGE ONE (13:05)
[2022-04-24] MEDS ORDERED: ONDANSETRON 4 MG/2 ML VIAL ONE ×2 (13:05→14:25)
[2022-04-24] MEDS ORDERED: GLYCOPYRROLATE 0.2 MG/ML VIAL IV ONE (13:05)
[2022-04-24] MEDS ORDERED: MAGNESIUM SULFATE 2 GM/50 ML BAG IV ONE (13:05)
[2022-04-24] MEDS ORDERED: LIDOCAINE HCL/PF 100 MG/5 ML SYRINGE IV ONE (13:05)
[2022-04-24] MEDS ORDERED: PHENYLephrine 1 MG/10 ML SYRINGE (ANEST) ONE (13:05)
[2022-04-24] MEDS ORDERED: fentaNYL 100 MCG/2 ML VIAL IV ONE (13:05)
[2022-04-24] MEDS ORDERED: KETAMINE 50 MG/ML Syringe (ANEST) IV ONE (13:05)
[2022-04-24] MEDS ORDERED: DEXAMETHASONE 10 MG/ML VIAL ONE (13:05)
[2022-04-24] MEDS ORDERED: NALOXONE HCL 0.4 MG/ML VIAL IV PRN (13:33)
[2022-04-24] MEDS ORDERED: LACTATED RINGERS 250 ML IV PRN (13:33)
[2022-04-24] MEDS ORDERED: METOPROLOL TARTRATE 5 MG/5 ML VIAL IV PRN (13:33)
[2022-04-24] MEDS ORDERED: ACETAMINOPHEN 750 MG/75 ML BAG IV ONE (13:33)
[2022-04-24] MEDS ORDERED: METHOCARBAMOL 1,000 MG/10 ML VIAL IV PRN (13:33)
[2022-04-24] MEDS ORDERED: LABETALOL 5 MG/ML ML IV PRN (13:33)
[2022-04-24] MEDS ORDERED: IPRATROPIUM/ALBUTEROL 3 ML AMPUL.NEB NEB PRN (13:33)
[2022-04-24] MEDS ORDERED: fentaNYL 100 MCG/2 ML VIAL IV PRN (13:33)
[2022-04-24] MEDS ORDERED: LACTATED RINGERS 1,000 ML IV SCH (13:45)
[2022-04-24] MEDS ORDERED: ONDANSETRON 4 MG/2 ML VIAL IV ONE (14:17)
[2022-04-24] MEDS ORDERED: POTASSIUM CHLORIDE IV SCH (15:00)
[2022-04-24] MEDS ORDERED: [UNRECOGNIZED DRUG - OTHER] IV SCH (15:00)
[2022-04-24] MEDS ORDERED: SODIUM PHOSPHATE IV SCH (15:00)
[2022-04-24] MEDS ORDERED: MAGNESIUM SULFATE IV SCH (15:00)
[2022-04-24 15:08] LABS: Hemoglobin 9.4 g/dL (11.2-15.7)
--- NOTE | 2022-04-24 19:13 | Brief Operative Note ---
Brief Operative Note Date of procedure: 04/24/22 Pre-op diagnosis: Post Operative Bleed Post-op diagnosis: same Procedure: Wound Exploration, Washout and Closure Grafts/Implants: No Anesthesia: GETA Findings: Clot and active oozing from multiple sites in the extra fascial SQ of the vertical midline incision with evacuation of @ 50cc of clot/blood. Fascial closure nicely intact without evidence of intra peritoneal hemorrhage, left undisturbed Complications: none Surgeon: Nick Coats Estimated blood loss (cc): 50 Specimens Removed/Pathology: none sent Condition: stable Disposition: PACU
[2022-04-25] MEDS: HYDROmorphone 0.5 MG/0.5 ML SYRINGE IV PRN ×7 (02:18→21:51)
[2022-04-25] MEDS: DEXTROSE 5%-1/2NS 1,000 ML IV SCH ×2 (02:21→21:17)
[2022-04-25] MEDS: PIPERACILLIN SODIUM/TAZOBACTAM 3.375 GM in DEXTROSE 5% IN WATER 50 ML IV SCH ×3 (05:11→21:52)
[2022-04-25] MEDS: 0.9 % SODIUM CHLORIDE 10 ML SYRINGE IV SCH ×3 (05:11→21:18)
[2022-04-25] MEDS: PANTOPRAZOLE 40 MG VIAL IV SCH ×2 (07:35→16:29)
[2022-04-25 08:09] LABS: Blood Urea Nitrogen 14 mg/dL (8-23); Calcium 7.9 mg/dL (8.6-10.4); Carbon Dioxide 20 mmol/L (22-30); Chloride 101 mmol/L (96-108); Glomerular Filtration Rate 78; Glucose 218 mg/dL (70-105)
[2022-04-25 08:10] LABS: Hematocrit 26.6 % (34.1-44.9); Hemoglobin 8.6 g/dL (11.2-15.7); Mean Corpuscular HGB Conc 32.3 g/dL (31.0-36.0); Mean Platelet Volume 10.7 fL (7.4-10.4); Platelet Count 121 K/mcL (140-440); RBC 2.99 M/mcL (3.59-5.38); Red Cell Distribution Width 17.2 % (11.5-14.5); WBC 63.3 K/mcL (4.5-11.0)
[2022-04-25 08:16] LABS: Prealbumin 17.5 mg/dL (20.0-40.0)
--- NOTE | 2022-04-25 10:34 | General Surgery Progress Note ---
SUBJECTIVE Subjective Patient information: Note initiated : 04/25/22 at 8:10 am Service Date, if different from initiated Date: [] Patient: Mary Ellen Jimenez 62 y/o F admitted on 04/21/22 for Laparotomy Exploratory, Lysis Adhesions, Placement. Chief Complaint: [] Doing well, feels much improved this am - now passing some gas and stool per patient Constitutional Vitals: Vital Signs Temp Pulse Resp BP Pulse Ox O2 Del Method O2 Flow Rate 97.5 F 58 L 14 138/78 96 6 04/25/22 06:40 04/25/22 06:40 04/25/22 06:40 04/25/22 06:40 04/25/22 06:40 04/25/22 06:40 04/24/22 14:00 Period Temp Pulse Resp BP Sys/Plummer Pulse Ox O2 Del Method O2 Flow Rate Last 24 Hr 97.5 F-98.9 F 57-101 7-24 116-186/76-99 93-100 Room Air-Room Air 6 Intake and Output 04/24/22 04/25/22 04/25/22 21:59 05:59 13:59 Intake Total 2624 100 Output Total 30 1620 Balance 2594 -1520 Weight 121 lb 12.8 oz Intake & Output: Intake & Output 04/24/22 04/25/22 04/25/22 21:59 05:59 13:59 Intake Total 2624 100 Output Total 30 1620 Balance 2594 -1520 Weight 121 lb 12.8 oz Intake: IV 1324 100 Zosyn 3.375 gm In Dextrose 5% 50 100 in Water 50 ml @ 100 mls/hr IV Q8H REDD Rx#:[id number] Sodium Phosphate 45 Mmol 1199 Potassium Chloride 70 Meq Magnesium Sulfate 16.24 Meq Calcium Gluconate 13.95 Meq Infuvite Adult 10 ml In Clinimix 5%-20% Solution 2,000 ml @ 50 mls/hr IV DAILY@1500 REDD Rx#:[id number] Oral 0 IV - Manual Only 1300 Output: Drainage 20 Left Lower Abdomen AZAM Drain 20 Void Amount 1600 Estimated Blood Loss 30 Other: Urine Appearance Clear Urine Color Bright Yellow Exam: looks well, non toxic, NAD Respiratory Additional comments: non labored, normal effort Cardiovascular Cardiovascular exam: Present RRR GI/Abdominal Additional comments: soft and non tender, non distended, drain scant, Feeding Tube in place Extremities Exam Additional comments: well perfused A/P Narrative A/P Narrative: POD #4 Ex Lap, Lysis of Adhesions and Placement Feeding Tube Jejunostomy Seems improved today, will start Tube Feeds now that bowel function has returned Increase activity Will hold off on Hep SQ given anemia, low platelet counts and bleeding complications thus far Advance to 1/2 goal rate today and full rate tomorrow if tolerating well and re check labs in AM Time Spent With Patient Time: Total time spent is greater than 50% in coordination of care (as documented) at patient's floor/unit and/or counseling patient:
--- NOTE | 2022-04-25 11:04 | Operative Note ---
DATE OF OPERATION: 04/24/2022 DATE OF PROCEDURE: 04/24/2022 PREOPERATIVE DIAGNOSIS: Postoperative bleeding. POSTOPERATIVE DIAGNOSIS: Postoperative bleeding. OPERATIVE PROCEDURE: Wound exploration with washout and closure. SURGEON: Nick Coats M.D. ANESTHESIA: General. PREOPERATIVE MEDICATIONS: Ancef 2 g IV. INDICATIONS: The patient is a 62-year-old female who was 3-4 days out from a recent exploratory laparotomy with extensive lysis of adhesions and a feeding tube jejunostomy for stage IV metastatic gastric cancer and inability to maintain adequate oral intake. Her procedure went well. She was recovering on the floor when she began to develop drainage from her incision that appeared to be consistent with bleeding. Her hemoglobin levels were relatively stable, but she continued to have drainage to the point that I had concerns of active ongoing bleeding. It was unclear if it was coming from the incision or if this was a peritoneal-based source and based on that, I ultimately recommended proceeding to the operating room for wound exploration initially followed by a peritoneal exploration if need be. Risks, benefits, potential complications, and alternative treatment options were discussed with her and her son at length prior to the procedure. They had a good understanding of all the issues of the uncertainty regarding what we might find, potential need for return procedures and other issues as well as the morbidity related to this, given the fact that she continues to have this oozing and bleeding. She wished to undergo the procedure and again had a full understanding of all of the concerns. DESCRIPTION OF PROCEDURE: The patient was taken to the operating room and placed supine on the OR table, placed under general anesthesia and intubated. Bilateral SCDs were applied. All pressure sensitive areas were carefully padded. Arms were placed out on arm boards. Her abdomen was then widely prepped and draped in sterile fashion, we prepped the drain and the J-tube into the field as well. Peter were then removed from the midline incision, which were widely prepped and draped. Initial survey revealed a moderate amount of thrombus in the subcutaneous tissues and space of the closure. This was irrigated out and represented roughly 50 mL of retained clot and thrombus. We saw multiple sites of active oozing in the subcutaneous tissue, which were controlled easily with cautery. These were small areas of essentially capillary oozing. The fascia was closely inspected and found to be fully intact. There was no evidence of any bleeding from the peritoneal side of the closure and the belly appeared to be completely nondistended, soft and benign and again over a prolonged period of observation of roughly a half-hour, there was no evidence of any bleeding from the underlying peritoneal closure and I elected to not open the underlying fascia. The subcutaneous tissue was then extensively irrigated out. We surveyed again for any evidence of a focal site bleeding that might have contributed to this. None were identified. Any areas of oozing were controlled with cautery as discussed. We irrigated out a final time and then applied some Ismael powder as a topical hemostatic and then closed the incision with peter as had previously been the case. Some bacitracin ointment was applied as a topical followed by sterile dressing. The patient was awakened, extubated, and transferred to PACU in satisfactory condition. There were no apparent complications or issues. Sponge, needle and instrument counts were correct. FINDINGS: As discussed above. ESTIMATED BLOOD LOSS: Roughly 50 mL of retained clot and some active oozing. BW:helen Job ID: [id number] Doc ID: [id number] Nick Coats M.D. [facility]DLiz
[2022-04-25] MEDS: MAGNESIUM SULFATE IV SCH (15:58)
[2022-04-25] MEDS: POTASSIUM CHLORIDE IV SCH (15:58)
[2022-04-25] MEDS: SODIUM PHOSPHATE IV SCH (15:58)
[2022-04-25] MEDS: [UNRECOGNIZED DRUG - OTHER] IV SCH (15:58)
[2022-04-25 16:01] LABS: ALT/SGPT 20 U/L (<40); AST/SGOT 24 U/L (<32); Albumin 2.7 gm/dL (3.2-5.2); Alkaline Phosphatase 214 U/L (39-117); Bilirubin,Direct < 0.2 mg/dL (0-0.3); Bilirubin,Total 0.2 mg/dL (0.1-1.0); Blood Urea Nitrogen 13 mg/dL (8-23); Carbon Dioxide 20 mmol/L (22-30); Chloride 102 mmol/L (96-108); Globulin 2.6 gm/dL (2.2-3.7); Glomerular Filtration Rate 67; Glucose 216 mg/dL (70-105); Lactate Dehydrogenase 412 U/L (135-225); Phosphorous 3.5 mg/dL (2.5-4.5); Triglycerides 147 mg/dL (<150); Uric Acid 1.6 mg/dL (2.5-8.0)
[2022-04-25] MEDS: CHLORHEXIDINE GLUCONATE 1 ML ORAL.SOL SWABMOUTH SCH (21:17)
[2022-04-26] MEDS: HYDROmorphone 0.5 MG/0.5 ML SYRINGE IV PRN ×10 (02:07→22:01)
[2022-04-26] MEDS: PIPERACILLIN SODIUM/TAZOBACTAM 3.375 GM in DEXTROSE 5% IN WATER 50 ML IV SCH ×3 (05:57→21:52)
[2022-04-26] MEDS: 0.9 % SODIUM CHLORIDE 10 ML SYRINGE IV SCH ×3 (05:58→20:00)
[2022-04-26 07:09] LABS: Hematocrit 26.8 % (34.1-44.9); Hemoglobin 8.6 g/dL (11.2-15.7); Mean Cell Volume 90.8 fL (80.0-100.0); Mean Corpuscular HGB Conc 32.1 g/dL (31.0-36.0); Mean Platelet Volume 11.1 fL (7.4-10.4); Platelet Count 118 K/mcL (140-440); RBC 2.95 M/mcL (3.59-5.38); Red Cell Distribution Width 17.6 % (11.5-14.5); WBC 46.6 K/mcL (4.5-11.0)
[2022-04-26 07:19] LABS: ALT/SGPT 22 U/L (<40); AST/SGOT 26 U/L (<32); Albumin 2.6 gm/dL (3.2-5.2); Alkaline Phosphatase 172 U/L (39-117); Bilirubin,Direct < 0.2 mg/dL (0-0.3); Bilirubin,Total 0.2 mg/dL (0.1-1.0); Blood Urea Nitrogen 15 mg/dL (8-23); Calcium 7.6 mg/dL (8.6-10.4); Carbon Dioxide 22 mmol/L (22-30); Chloride 104 mmol/L (96-108); Globulin 2.6 gm/dL (2.2-3.7); Glomerular Filtration Rate 67; Glucose 151 mg/dL (70-105); Lactate Dehydrogenase 299 U/L (135-225); Phosphorous 3.7 mg/dL (2.5-4.5); Triglycerides 231 mg/dL (<150); Uric Acid 1.9 mg/dL (2.5-8.0)
[2022-04-26] MEDS: PANTOPRAZOLE 40 MG VIAL IV SCH ×2 (08:27→16:15)
[2022-04-26] MEDS: CHLORHEXIDINE GLUCONATE 1 ML ORAL.SOL SWABMOUTH SCH ×2 (08:28→20:00)
[2022-04-26] MEDS: DEXTROSE 5%-1/2NS 1,000 ML IV SCH ×2 (12:32→17:18)
--- NOTE | 2022-04-26 13:35 | General Surgery Progress Note ---
SUBJECTIVE Subjective Patient information: Note initiated : 04/26/22 at 1:30 pm Service Date, if different from initiated Date: [] Patient: Mary Ellen Jimenez 62 y/o F admitted on 04/21/22 for Laparotomy Exploratory, Lysis Adhesions, Placement. Chief Complaint: [] Principal diagnosis: Metastatic carcinoma of the stomach Interval history: Patient is status post tube jejunostomy placement for supplemental feedings. 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 She is presently on TPN and is receiving tube feeds at 25 cc/h. She is tolerating her tube feeds without any increased discomfort or nausea. She is also receiving TPN. Her electrolytes are normal. Hemoglobin is stable at 8.6. White blood count is reported at 46,800. Etiology for this is unsure. Her abdominal incision is unremarkable. Constitutional Vitals: Vital Signs Temp Pulse Resp BP Pulse Ox O2 Del Method O2 Flow Rate 97.9 F 63 20 140/84 95 6 04/26/22 11:19 04/26/22 03:57 04/26/22 11:19 04/26/22 11:19 04/26/22 11:19 04/26/22 11:19 04/24/22 14:00 Period Temp Pulse Resp BP Sys/Plummer Pulse Ox O2 Del Method O2 Flow Rate Last 24 Hr 97.6 F-99.3 F 61-70 14-20 125-146/65-84 94-97 Room Air-Room Air Intake and Output 04/25/22 04/26/22 04/26/22 21:59 05:59 13:59 Intake Total 3219 280 1100 Output Total 900 580 375 Balance 2319 -300 725 Weight 121 lb 8 oz Intake & Output: Intake & Output 04/25/22 04/26/22 04/26/22 21:59 05:59 13:59 Intake Total 3219 280 1100 Output Total 900 580 375 Balance 2319 -300 725 Weight 121 lb 8 oz Intake: IV 2314 50 813 Dextrose 5%-1/2Ns IV Solution 1 1000 763 ,000 ml @ 50 mls/hr IV .Q20H [facility] Rx#:[id number] Zosyn 3.375 gm In Dextrose 5% 50 50 50 in Water 50 ml @ 100 mls/hr IV Q8H [facility] Rx#:[id number] Sodium Phosphate 30 Mmol 1264 Potassium Chloride 80 Meq Magnesium Sulfate 16.24 Meq Calcium Gluconate 13.95 Meq Infuvite Adult 10 ml Sodium Acetate 20 Meq In Clinimix 5%- 20% Solution 2,000 ml @ 50 mls/ hr IV DAILY@1500 [facility] Rx#: [id number] Oral 0 Tube Feeding 775 170 227 GI Tube Flush 130 60 60 Output: Drainage 30 Left Lower Abdomen AZAM Drain 30 Void Amount 900 550 375 Other: Urine Appearance Clear Urine Color Straw Urine Odor Strong Respiratory Respiratory exam: Present normal respiratory exam and CTAB Cardiovascular Cardiovascular exam: Present normal rate and rhythm, RRR, +S1 and +S2; Absent JVD GI/Abdominal GI/Abdominal exam: Present normal bowel sounds and soft; Absent distended Additional comments: Incision looks good. Dressing change was carried out. Extremities Exam Extremities exam: Present normal capillary refill and neurovascular intact A/P Assessment and plan (1) Gastric cancer: Status: Acute (2) Status post small bowel resection: Status: Acute Plan Patient is clinically stable. Will decrease TPN and increase tube feeds since she is tolerating the tube feeds okay. Time Spent With Patient Time: Total time spent is greater than 50% in coordination of care (as documented) at patient's floor/unit and/or counseling patient:
[2022-04-26] MEDS ORDERED: POTASSIUM CHLORIDE IV SCH (15:00)
[2022-04-26] MEDS ORDERED: [UNRECOGNIZED DRUG - OTHER] IV SCH (15:00)
[2022-04-26] MEDS ORDERED: MAGNESIUM SULFATE IV SCH (15:00)
[2022-04-26] MEDS ORDERED: SODIUM PHOSPHATE IV SCH (15:00)
[2022-04-26] MEDS: POTASSIUM CHLORIDE IV SCH (18:31)
[2022-04-26] MEDS: SODIUM PHOSPHATE IV SCH (18:31)
[2022-04-26] MEDS: MAGNESIUM SULFATE IV SCH (18:31)
[2022-04-26] MEDS: [UNRECOGNIZED DRUG - OTHER] IV SCH (18:31)
[2022-04-26] MEDS: ONDANSETRON 4 MG/2 ML VIAL IV PRN (21:51)
[2022-04-27] MEDS: HYDROmorphone 0.5 MG/0.5 ML SYRINGE IV PRN ×7 (01:07→21:54)
[2022-04-27] MEDS: ONDANSETRON 4 MG/2 ML VIAL IV PRN ×5 (03:40→21:54)
[2022-04-27] MEDS: PIPERACILLIN SODIUM/TAZOBACTAM 3.375 GM in DEXTROSE 5% IN WATER 50 ML IV SCH ×3 (05:07→21:56)
[2022-04-27] MEDS: 0.9 % SODIUM CHLORIDE 10 ML SYRINGE IV SCH ×3 (05:08→21:57)
[2022-04-27] MEDS: PANTOPRAZOLE 40 MG VIAL IV SCH ×2 (08:25→16:12)
[2022-04-27] MEDS: CHLORHEXIDINE GLUCONATE 1 ML ORAL.SOL SWABMOUTH SCH ×2 (08:26→21:57)
[2022-04-27] MEDS: DEXTROSE 5%-1/2NS 1,000 ML IV SCH ×2 (09:40→14:36)
[2022-04-27 13:24] LABS: ALT/SGPT 22 U/L (<40); AST/SGOT 25 U/L (<32); Albumin 2.7 gm/dL (3.2-5.2); Albumin/Globulin Ratio 1.1 (1.0-2.3); Alkaline Phosphatase 170 U/L (39-117); Bilirubin,Direct < 0.2 mg/dL (0-0.3); Bilirubin,Total 0.2 mg/dL (0.1-1.0); Blood Urea Nitrogen 14 mg/dL (8-23); Calcium 7.8 mg/dL (8.6-10.4); Carbon Dioxide 23 mmol/L (22-30); Chloride 101 mmol/L (96-108); Globulin 2.5 gm/dL (2.2-3.7); Glomerular Filtration Rate 67; Glucose 124 mg/dL (70-105); Lactate Dehydrogenase 324 U/L (135-225); Phosphorous 4.5 mg/dL (2.5-4.5); Triglycerides 323 mg/dL (<150); Uric Acid 1.8 mg/dL (2.5-8.0)
--- NOTE | 2022-04-27 13:33 | XRay Report ---
INDICATION: post op ileus TECHNIQUE: Supine and upright abdomen. COMPARISON: Previous examinations dated 03/21/2022 and 03/20/2022. Previous CT scan dated 03/21/2022 FINDINGS:Surgical drains within the abdomen. There is skin bravo in a vertical midline incision Bowel gas pattern is nonspecific without evidence for bowel obstruction. No pneumoperitoneum. No biliary or portal venous gas. IMPRESSION: 1. Nonspecific and nonobstructive bowel gas pattern 2. Surgical drains within the abdomen Interpreted and Authenticated by: Jaleel Martini 04/27/22
--- NOTE | 2022-04-27 13:56 | General Surgery Progress Note ---
SUBJECTIVE Subjective Patient information: Note initiated : 04/27/22 at 1:48 pm Service Date, if different from initiated Date: [] Patient: Mary Ellen Jimenez 62 y/o F admitted on 04/21/22 for Laparotomy Exploratory, Lysis Adhesions, Placement. Chief Complaint: [] Principal diagnosis: Metastatic carcinoma of the stomach Interval history: Patient is clinically stable however she is not very well motivated. She does not complain of nausea and she has good active bowel sounds. I offered to advance her diet however she does not wish to even start clear liquids. Her abdominal x-rays shows mild gaseous accumulation in the proximal bowel but without major distention. The stomach is not dilated. Her incision is unremarkable. She is having flatus. Constitutional Vitals: Vital Signs Temp Pulse Resp BP Pulse Ox O2 Del Method O2 Flow Rate 98.1 F 76 18 165/81 95 6 04/27/22 08:00 04/27/22 08:00 04/27/22 08:00 04/27/22 08:00 04/27/22 08:00 04/27/22 08:00 04/24/22 14:00 Period Temp Pulse Resp BP Sys/Plummer Pulse Ox O2 Del Method O2 Flow Rate Last 24 Hr 97.0 F-98.3 F 70-76 16-18 137-165/76-87 95-97 Room Air-Room Air Intake and Output 04/26/22 04/27/22 04/27/22 21:59 05:59 13:59 Intake Total 2550 106 0643 Output Total 30 1435 30 Balance 1904 -607 1504 Weight 125 lb 1 oz Intake & Output: Intake & Output 04/26/22 04/27/22 04/27/22 21:59 05:59 13:59 Intake Total 3613 529 3551 Output Total 30 1435 30 Balance 1904 -607 1504 Weight 125 lb 1 oz Intake: IV 5468 216 7464 Dextrose 5%-1/2Ns IV Solution 1 1000 ,000 ml @ 50 mls/hr IV .Q20H [facility] Rx#:[id number] Zosyn 3.375 gm In Dextrose 5% 50 100 in Water 50 ml @ 100 mls/hr IV Q8H [facility] Rx#:[id number] Sodium Phosphate 30 Mmol 1114 314 Potassium Chloride 80 Meq Magnesium Sulfate 16.24 Meq Calcium Gluconate 13.95 Meq Infuvite Adult 10 ml Sodium Acetate 40 Meq In Clinimix 5%- 20% Solution 2,000 ml @ 25 mls/ hr IV DAILY@1500 [facility] Rx#: [id number] Oral 425 Tube Feeding 285 354 474 GI Tube Flush 60 60 60 Output: Drainage 30 Left Lower Abdomen AZAM Drain 30 Drainage 35 30 Left Lower Abdomen AZAM Drain 35 30 Void Amount 1400 # of times incontinent of urine 0 Other: Stool Size Moderate Stool Color Brown Stool Consistency Soft Formed # Voids 1 General appearance: average body habitus and no acute distress Head Head exam: Present atraumatic, normal inspection and normocephalic Eye Eye exam: Present EOMI and PERRL; Absent scleral icterus ENT ENT exam: Present mucous membranes moist and normal exam Neck Neck exam: Present full ROM and normal inspection; Absent lymphadenopathy Respiratory Respiratory exam: Present normal respiratory exam and CTAB; Absent accessory muscle use, rales, rhonchi or wheezes Cardiovascular Cardiovascular exam: Present normal rate and rhythm, RRR, +S1 and +S2; Absent gallop or JVD GI/Abdominal GI/Abdominal exam: Present normal bowel sounds, soft and distended (Minimal distention with active bowel sounds various) Extremities Exam Extremities exam: Present full ROM, normal inspection and neurovascular intact Neurological Exam Neurological exam: Present oriented X3 and reflexes normal; Absent motor sensory deficit Psychiatric Psychiatric exam: Present normal affect and normal mood A/P Assessment and plan (1) Gastric cancer: Status: Acute (2) Acute anemia: Status: Acute (3) Malignant neoplasm of small intestine: Status: Acute Plan Patient is progressing well but she is very limited reluctant to allow advancing her diet. She complains of intermittent nausea however she is having copious flatus and has had bowel movements. Her small bowel and colon appear to be unremarkable on x-rays performed today. She is poorly motivated and has a degree of depression. TPN is increased for the time being. Time Spent With Patient Time: Total time spent is greater than 50% in coordination of care (as documented) at patient's floor/unit and/or counseling patient:
[2022-04-27] MEDS ORDERED: SODIUM PHOSPHATE IV SCH (15:00)
[2022-04-27] MEDS ORDERED: POTASSIUM CHLORIDE IV SCH (15:00)
[2022-04-27] MEDS ORDERED: MAGNESIUM SULFATE IV SCH (15:00)
[2022-04-27] MEDS ORDERED: [UNRECOGNIZED DRUG - OTHER] IV SCH (15:00)
[2022-04-27] MEDS: INSULIN LISPRO 1 UNIT/0.01 ML UNIT SQ SCH (18:54)
[2022-04-28] MEDS: INSULIN LISPRO 1 UNIT/0.01 ML UNIT SQ SCH ×4 (00:09→21:17)
[2022-04-28] MEDS: HYDROmorphone 0.5 MG/0.5 ML SYRINGE IV PRN ×8 (02:14→21:17)
[2022-04-28] MEDS: ONDANSETRON 4 MG/2 ML VIAL IV PRN ×4 (02:14→18:07)
[2022-04-28] MEDS: PIPERACILLIN SODIUM/TAZOBACTAM 3.375 GM in DEXTROSE 5% IN WATER 50 ML IV SCH ×3 (05:35→22:35)
[2022-04-28] MEDS: 0.9 % SODIUM CHLORIDE 10 ML SYRINGE IV SCH ×3 (05:35→21:08)
[2022-04-28 07:23] LABS: ALT/SGPT 23 U/L (<40); AST/SGOT 27 U/L (<32); Albumin 2.6 gm/dL (3.2-5.2); Alkaline Phosphatase 145 U/L (39-117); Bilirubin,Direct < 0.2 mg/dL (0-0.3); Bilirubin,Total 0.2 mg/dL (0.1-1.0); Blood Urea Nitrogen 12 mg/dL (8-23); Calcium 7.8 mg/dL (8.6-10.4); Carbon Dioxide 26 mmol/L (22-30); Chloride 100 mmol/L (96-108); Globulin 2.6 gm/dL (2.2-3.7); Glomerular Filtration Rate 91; Glucose 130 mg/dL (70-105); Lactate Dehydrogenase 255 U/L (135-225); Phosphorous 2.8 mg/dL (2.5-4.5); Triglycerides 267 mg/dL (<150); Uric Acid 1.3 mg/dL (2.5-8.0)
[2022-04-28] MEDS: PANTOPRAZOLE 40 MG VIAL IV SCH ×2 (08:35→17:54)
[2022-04-28] MEDS: DEXTROSE 5%-1/2NS 1,000 ML IV SCH (08:36)
[2022-04-28] MEDS: CHLORHEXIDINE GLUCONATE 1 ML ORAL.SOL SWABMOUTH SCH ×2 (14:26→21:07)
[2022-04-28] MEDS: POTASSIUM CHLORIDE IV SCH (15:12)
[2022-04-28] MEDS: SODIUM PHOSPHATE IV SCH (15:12)
[2022-04-28] MEDS: MAGNESIUM SULFATE IV SCH (15:12)
[2022-04-28] MEDS: [UNRECOGNIZED DRUG - OTHER] IV SCH (15:12)
--- NOTE | 2022-04-28 17:24 | General Surgery Progress Note ---
SUBJECTIVE Subjective Patient information: Note initiated : 04/28/22 at 1030 Service Date, if different from initiated Date: [] Patient: aMry Ellen Jimenez 62 y/o F admitted on 04/21/22 for Laparotomy Exploratory, Lysis Adhesions, Placement. Chief Complaint: [] Mary Ellen has some nausea this am, no vomiting. Having bowel function. Pain control seems adequate, has been ambulating Principal diagnosis: Metastatic carcinoma of the stomach Constitutional Vitals: Vital Signs Temp Pulse Resp BP Pulse Ox O2 Del Method O2 Flow Rate 98.7 F 73 16 162/90 98 6 04/28/22 17:02 04/28/22 17:02 04/28/22 17:02 04/28/22 17:02 04/28/22 17:02 04/28/22 17:02 04/24/22 14:00 Period Temp Pulse Resp BP Sys/Plummer Pulse Ox O2 Del Method O2 Flow Rate Last 24 Hr 97.6 F-99.2 F 73-81 16-22 149-162/76-90 96-99 Room Air-Room Air Intake and Output 04/28/22 04/28/22 04/28/22 05:59 13:59 21:59 Intake Total 1964 210 320 Output Total 2303 400 Balance -339 -190 320 Intake & Output: Intake & Output 04/28/22 04/28/22 04/28/22 05:59 13:59 21:59 Intake Total 1963 210 320 Output Total 2303 400 Balance -339 -190 320 Intake: IV 1050 50 50 Dextrose 5%-1/2Ns IV Solution 1 1000 ,000 ml @ 50 mls/hr IV .Q20H [facility] Rx#:[id number] Zosyn 3.375 gm In Dextrose 5% 50 50 50 in Water 50 ml @ 100 mls/hr IV Q8H [facility] Rx#:[id number] Oral 0 Tube Feeding 854 80 240 GI Tube Flush 60 80 30 Output: Gastric Drainage 3 Left Upper Quadrant PEG 3 Drainage 25 Left Lower Abdomen AZAM Drain 25 Void Amount 2275 400 Other: Urine Appearance Clear Urine Color Bright Yellow Urine Odor Normal Exam: Looks non toxic, NAD Respiratory Additional comments: normal effort without distress Cardiovascular Cardiovascular exam: Present RRR GI/Abdominal Additional comments: soft and non tender, non distended, JPD scant drainage, dry dressing on midline incision Extremities Exam Additional comments: well perfused A/P Assessment and plan (1) Gastric cancer: Assessment and plan: Metastatic Gastric Cancer Doing ok with Tube Feeds but with some nausea - she will likely need to go out on TPN with increased use of Tube Feeds over time based on tolerance Possible discharge tomorrow Increase activity today Oral intake ok as well as tolerated Status: Acute Time Spent With Patient Time: Total time spent is greater than 50% in coordination of care (as documented) at patient's floor/unit and/or counseling patient:
[2022-04-28] MEDS: ZOLPIDEM 5 MG TABLET PO PRN (22:35)
[2022-04-28] MEDS ORDERED: ZOLPIDEM 5 MG TABLET ONE (22:42)
[2022-04-29] MEDS: INSULIN LISPRO 1 UNIT/0.01 ML UNIT SQ SCH ×5 (00:49→23:43)
[2022-04-29] MEDS: HYDROmorphone 0.5 MG/0.5 ML SYRINGE IV PRN ×6 (00:54→20:12)
[2022-04-29] MEDS: DEXTROSE 5%-1/2NS 1,000 ML IV SCH (05:33)
[2022-04-29] MEDS: 0.9 % SODIUM CHLORIDE 10 ML SYRINGE IV SCH ×3 (05:34→20:11)
[2022-04-29] MEDS: PIPERACILLIN SODIUM/TAZOBACTAM 3.375 GM in DEXTROSE 5% IN WATER 50 ML IV SCH ×3 (05:48→22:04)
[2022-04-29 06:26] LABS: Hemoglobin 8.1 g/dL (11.2-15.7); Mean Cell Volume 90.6 fL (80.0-100.0); Mean Corpuscular HGB Conc 32.4 g/dL (31.0-36.0); Mean Platelet Volume 10.8 fL (7.4-10.4); Platelet Count 207 K/mcL (140-440); RBC 2.76 M/mcL (3.59-5.38); Red Cell Distribution Width 18.4 % (11.5-14.5)
[2022-04-29 07:02] LABS: ALT/SGPT 31 U/L (<40); AST/SGOT 37 U/L (<32); Albumin 2.6 gm/dL (3.2-5.2); Alkaline Phosphatase 127 U/L (39-117); Bilirubin,Direct < 0.2 mg/dL (0-0.3); Bilirubin,Total 0.2 mg/dL (0.1-1.0); Blood Urea Nitrogen 15 mg/dL (8-23); Calcium 8.1 mg/dL (8.6-10.4); Carbon Dioxide 29 mmol/L (22-30); Chloride 100 mmol/L (96-108); Globulin 2.6 gm/dL (2.2-3.7); Glomerular Filtration Rate 78; Glucose 117 mg/dL (70-105); Lactate Dehydrogenase 269 U/L (135-225); Phosphorous 3.7 mg/dL (2.5-4.5); Triglycerides 231 mg/dL (<150); Uric Acid 1.3 mg/dL (2.5-8.0)
[2022-04-29] MEDS: PANTOPRAZOLE 40 MG VIAL IV SCH ×2 (08:09→17:44)
[2022-04-29] MEDS: CHLORHEXIDINE GLUCONATE 1 ML ORAL.SOL SWABMOUTH SCH ×2 (09:02→20:12)
--- NOTE | 2022-04-29 13:16 | General Surgery Progress Note ---
SUBJECTIVE Subjective Patient information: Note initiated : 04/29/22 at 830 pm Service Date, if different from initiated Date: [] Patient: Mary Ellen Jimenez 62 y/o F admitted on 04/21/22 for Laparotomy Exploratory, Lysis Adhesions, Placement. Chief Complaint: [] Overall feels better today, appetite remains marginal and has only ok tolerance of tube feeds at this time Principal diagnosis: Metastatic carcinoma of the stomach Constitutional Vitals: Vital Signs Temp Pulse Resp BP Pulse Ox O2 Del Method O2 Flow Rate 98.6 F 80 18 152/84 97 6 04/29/22 11:42 04/29/22 11:42 04/29/22 11:42 04/29/22 11:42 04/29/22 11:42 04/29/22 11:42 04/24/22 14:00 Period Temp Pulse Resp BP Sys/Plummer Pulse Ox O2 Del Method O2 Flow Rate Last 24 Hr 98.3 F-98.9 F 73-80 14-20 138-162/76-90 96-99 Room Air-Room Air Intake and Output 04/28/22 04/29/22 04/29/22 21:59 05:59 13:59 Intake Total 320 1559 110 Output Total 15 10 1000 Balance 305 1549 -890 Weight 120 lb 6.4 oz 120 lb Patient Weight 04/30/22 05:59 Weight 120 lb Intake & Output: Intake & Output 04/28/22 04/29/22 04/29/22 21:59 05:59 13:59 Intake Total 320 1559 110 Output Total 15 10 1000 Balance 305 1549 -890 Weight 120 lb 6.4 oz 120 lb Intake: IV 50 1050 50 Dextrose 5%-1/2Ns IV Solution 1 1000 ,000 ml @ 50 mls/hr IV .Q20H [facility] Rx#:[id number] Zosyn 3.375 gm In Dextrose 5% 50 50 50 in Water 50 ml @ 100 mls/hr IV Q8H [facility] Rx#:[id number] Oral 0 0 Tube Feeding 240 449 0 GI Tube Flush 30 60 60 Output: Drainage 15 10 Left Lower Abdomen AZAM Drain 15 10 Void Amount 0 1000 Other: Meal Breakfast Percent of Meal Consumed bites Feeding Ability Independent Urine Appearance Clear Urine Color Bright Yellow Urine Odor Normal # Voids 1 0 Exam: she looks well, NAD Respiratory Additional comments: normal respiratory effort without distress Cardiovascular Cardiovascular exam: Present RRR GI/Abdominal Additional comments: soft and non distended, non tender, JPD scant drainage Extremities Exam Additional comments: well perfused A/P Assessment and plan (1) Gastric cancer: Assessment and plan: Metastatic Gastric Cancer Doing OK - home whenever home care, tube feed and TPN arrangements are in position Not yet tolerating full rate tube feeds, will need to continue on TPN as well for some period of time Increase activity as tolerated Status: Acute Time Spent With Patient Time: Total time spent is greater than 50% in coordination of care (as documented) at patient's floor/unit and/or counseling patient:
[2022-04-29] MEDS: [UNRECOGNIZED DRUG - OTHER] IV SCH (15:15)
[2022-04-29] MEDS: MAGNESIUM SULFATE IV SCH (15:15)
[2022-04-29] MEDS: SODIUM PHOSPHATE IV SCH (15:15)
[2022-04-29] MEDS: POTASSIUM CHLORIDE IV SCH (15:15)
[2022-04-29] MEDS: HYDROmorphone 2 MG TABLET PO PRN ×2 (18:38→22:36)
[2022-04-29] MEDS: ONDANSETRON 4 MG/2 ML VIAL IV PRN (20:22)
[2022-04-29] MEDS: ZOLPIDEM 5 MG TABLET PO PRN (21:10)
[2022-04-30] MEDS: HYDROmorphone 2 MG TABLET PO PRN (03:08)
[2022-04-30] MEDS: ONDANSETRON 4 MG/2 ML VIAL IV PRN ×2 (03:11→07:02)
[2022-04-30] MEDS: 0.9 % SODIUM CHLORIDE 10 ML SYRINGE IV PRN (03:12)
[2022-04-30] MEDS: INSULIN LISPRO 1 UNIT/0.01 ML UNIT SQ SCH ×2 (05:14→12:39)
[2022-04-30] MEDS: PIPERACILLIN SODIUM/TAZOBACTAM 3.375 GM in DEXTROSE 5% IN WATER 50 ML IV SCH (06:05)
[2022-04-30] MEDS: 0.9 % SODIUM CHLORIDE 10 ML SYRINGE IV SCH (06:05)
[2022-04-30 06:44] LABS: Basophils # (Auto) 0.04 K/mcL (0.00-0.30); Basophils % (Auto) 0.4 % (0.0-2.0); Eosinophils # (Auto) 0.05 K/mcL (0.00-0.70); Eosinophils % (Auto) 0.5 % (0.0-7.0); Hematocrit 26.1 % (34.1-44.9); Hemoglobin 8.2 g/dL (11.2-15.7); Lymphocytes # (Auto) 0.91 K/mcL (1.50-4.80); Lymphocytes % (Auto) 9.1 % (15.5-49.0); Mean Cell Volume 90.3 fL (80.0-100.0); Mean Corpuscular HGB Conc 31.4 g/dL (31.0-36.0); Mean Platelet Volume 10.3 fL (7.4-10.4); Monocytes % (Auto) 13.1 % (1.0-12.0); Neutrophils % (Auto) 74.8 % (38.0-78.0); Platelet Count 290 K/mcL (140-440); RBC 2.89 M/mcL (3.59-5.38); Red Cell Distribution Width 18.4 % (11.5-14.5)
[2022-04-30 07:06] LABS: ALT/SGPT 33 U/L (<40); AST/SGOT 37 U/L (<32); Albumin 2.9 gm/dL (3.2-5.2); Albumin/Globulin Ratio 1.1 (1.0-2.3); Alkaline Phosphatase 111 U/L (39-117); Bilirubin,Direct < 0.2 mg/dL (0-0.3); Bilirubin,Total 0.2 mg/dL (0.1-1.0); Blood Urea Nitrogen 15 mg/dL (8-23); Calcium 8.3 mg/dL (8.6-10.4); Carbon Dioxide 25 mmol/L (22-30); Chloride 101 mmol/L (96-108); Globulin 2.6 gm/dL (2.2-3.7); Glomerular Filtration Rate 78; Glucose 132 mg/dL (70-105); Lactate Dehydrogenase 266 U/L (135-225); Phosphorous 4.7 mg/dL (2.5-4.5); Triglycerides 212 mg/dL (<150); Uric Acid 1.6 mg/dL (2.5-8.0)
[2022-04-30] MEDS ORDERED: ACETAMINOPHEN 325 MG TABLET PO PRN (08:27)
[2022-04-30] MEDS: PANTOPRAZOLE 40 MG VIAL IV SCH (08:39)
[2022-04-30] MEDS ORDERED: METOCLOPRAMIDE 10 MG/2 ML VIAL IV ONE (09:50)
[2022-04-30] MEDS: CHLORHEXIDINE GLUCONATE 1 ML ORAL.SOL SWABMOUTH SCH (10:14)
[2022-04-30] MEDS: HYDROmorphone 0.5 MG/0.5 ML SYRINGE IV PRN (10:45)
--- NOTE | 2022-04-30 13:41 | General Surgery Progress Note ---
SUBJECTIVE Subjective Patient information: Note initiated : 04/30/22 at 1:37 pm Service Date, if different from initiated Date: [] Patient: Mary Ellen Jimenez 62 y/o F admitted on 04/21/22 for Laparotomy Exploratory, Lysis Adhesions, Placement. Chief Complaint: [] Doing Well, some nausea but no vomiting, minimal pain Principal diagnosis: Metastatic carcinoma of the stomach Constitutional Vitals: Vital Signs Temp Pulse Resp BP Pulse Ox O2 Del Method O2 Flow Rate 98.2 F 75 16 137/81 96 6 04/30/22 12:00 04/30/22 12:00 04/30/22 12:00 04/30/22 12:00 04/30/22 12:00 04/30/22 12:00 04/24/22 14:00 Period Temp Pulse Resp BP Sys/Plummer Pulse Ox O2 Del Method O2 Flow Rate Last 24 Hr 98.2 F-99.1 F 72-84 12-20 129-156/76-87 96-98 Room Air-Room Air Intake and Output 04/29/22 04/30/22 04/30/22 21:59 05:59 13:59 Intake Total 1605 445 176 Output Total 500 700 400 Balance 1105 -255 -224 Weight 116 lb 11.2 oz Intake & Output: Intake & Output 04/29/22 04/30/22 04/30/22 21:59 05:59 13:59 Intake Total 1605 445 176 Output Total 500 700 400 Balance 1105 -255 -224 Weight 116 lb 11.2 oz Intake: IV 1253 50 50 Zosyn 3.375 gm In Dextrose 5% 50 50 50 in Water 50 ml @ 100 mls/hr IV Q8H [facility] Rx#:[id number] Sodium Phosphate 30 Mmol 1203 Potassium Chloride 80 Meq Magnesium Sulfate 16.24 Meq Calcium Gluconate 13.95 Meq Infuvite Adult 10 ml Sodium Acetate 40 Meq In Clinimix 5%- 20% Solution 2,000 ml @ 50 mls/ hr IV DAILY@1500 [facility] Rx#: [id number] Oral 200 Tube Feeding 292 135 66 GI Tube Flush 60 60 60 Output: Void Amount 500 700 400 Other: Meal Dinner Percent of Meal Consumed 25% Feeding Ability Independent Urine Appearance Clear Clear Urine Color Bright Yellow Bright Yellow Urine Odor Normal Normal Stool Size Small Moderate Stool Color Brown Brown Stool Consistency Formed Soft # Voids 1 # Bowel Movements 1 Exam: looks well, NAD Respiratory Additional comments: normal effort, no distress Cardiovascular Cardiovascular exam: Present RRR GI/Abdominal Additional comments: soft and non tender, non distended, Feeding J tube in place and functioning well Extremities Exam Additional comments: well perfused A/P Narrative A/P Narrative: Post Ex Lap, Lysis of Adhesions, Feeding Tube Jejunostomy Doing Well Home today with both TPN and Tube Feeds now arranged - will have to taper off of TPN and increase J tube feeds over time as tolerated Will add Reglan to help with nausea issues Clinic follow up in 7-[address] Coats Time Spent With Patient Time: Total time spent is greater than 50% in coordination of care (as documented) at patient's floor/unit and/or counseling patient:
--- NOTE | 2022-05-06 09:09 | Discharge Summary ---
DATE OF ADMISSION: 04/21/2022 DATE OF DISCHARGE: 04/30/2022 ADMITTING PHYSICIAN: Nick Coats MD ADMITTING DIAGNOSIS: Metastatic gastric cancer with need for feeding tube jejunostomy for supplemental enteral nutrition. DISCHARGE DIAGNOSIS: Metastatic gastric cancer with need for feeding tube jejunostomy for supplemental enteral nutrition. INDICATIONS FOR ADMISSION/HOSPITAL COURSE: The patient is a 62-year-old female who has recently been diagnosed with metastatic gastric cancer that originally presented as a small bowel obstruction from hematogenous METS to the small bowel with obstructing intramural lesions. Ultimately, she underwent upper endoscopy after she underwent resection for the small bowel obstruction and was found to have a primary gastric cancer. She subsequently has been undergoing systemic chemotherapy, but unable to do particularly well in terms of oral intake. We were asked to see her and place a feeding tube jejunostomy for her after no reasonable way of obtaining this or doing this percutaneously with was found or noted. Risks, benefits, potential complications and alternative treatment options were all discussed with her and her family at length. The details of this procedure can be found in the separately dictated operative report from 04/21/2022. After she underwent the procedure, her hospital course subsequently consisted of waiting for bowel function to return and then starting enteral nutrition along with her IV parenteral TPN supplementation via left-sided PICC line. She tolerated the tube feeds at a slower rate than absolute goal rate, but overall did reasonably well and was felt ready for discharge by 04/30/2022 without any significant complication or issue. She was discharged on both IV parenteral nutrition via PICC line and also enteral nutrition via her feeding tube jejunostomy with plans to adjust these on an outpatient basis under the care of her medical oncology team. IN-HOSPITAL PROCEDURES: 1. Feeding tube jejunostomy with exploratory laparotomy and extensive lysis of adhesions on 04/21/2022--please see separately dictated operative report for the details as needed. 2. Return to the operating room for wound exploration for postoperative incisional bleeding on 04/24/2022--please see details of separately dictated operative report. IN-HOSPITAL COMPLICATIONS: Postoperative bleeding at her incision, likely occurring as a complication of her preprocedural chemotherapy. DISPOSITION: Home. She will follow up in clinic and with her medical oncology team. BW:[email or web address] Job ID: [id number] Doc ID: [id number] Nick Coats M.D.
== END 2022-04-30 14:20 | disposition home or self-care (01) | DRG 330 ==
LOC: MEDSUR 08:06 → EDSTATUS 09:30
PROVIDERS: ADMIT Surgery Surgical Critical Care; ATTEND Surgery Surgical Critical Care